=== PATIENT | female | born 1985 | race African-American/Black ===

== ENCOUNTER 2024-06-10 10:18 | Emergency (ER) | payer OTHER, SELFPAY ==
[2024-06-10 10:33] VITALS: BP 149/110; PULSE 95; RESP 101; TEMP 36.5; O2SAT 100
--- NOTE | 2024-06-10 11:06 | ED_ITS ---
HPI - General Adult General Chief complaint: Dental/Oral Stated complaint: dental pain Time Seen by Provider: 06/10/24 10:53 History of Present Illness HPI narrative: 38-year-old female history of poor dentition present to the emergency department for evaluation for uncontrolled dental pain. Patient has been attempting to get follow-up with a dentist for her chronic dental issues and dental fractures but states she is still unable to get follow-up. Patient did follow-up with urgent care and was started on Augmentin but patient states her pain is poorly controlled. Patient has been taking Tylenol and naproxen for pain control but still reports her pain is poorly controlled. Related Data Allergies Allergy/AdvReac Type Severity Reaction Status Date / Time No Known Drug Allergies Allergy NA Verified 06/10/24 11:13 Review of Systems Review of Systems: All systems reviewed & are unremarkable except as noted in HPI and below Exam Narrative: APPEARANCE: Well appearing, no pain, no distress, well-nourished. HEAD: normocephalic, atraumatic. EYES: PERRLA/EOMI, conjunctivae clear. Mouth: Extensive dental caries, no abscess NOSE: Normal no drainage EARS:TMS clear with good light reflex. THROAT: Pharynx clear, no exudate. NECK: Supple. No adenopathy, no masses. RESPIRATORY: Airway patent, respirations nonlabored. Clear to auscultation bilaterally, no rales, rhonchi, wheezing. CARDIOVASCULAR: Regular rate and rhythm without murmurs rubs or gallops. ABDOMINAL: Soft, nontender, nondistended, normal bowel sounds MUSCULOSKELETAL: Moves all extremities. Strength/ROM intact, No edema, No calf tenderness. NEURO: Alert. Cranial nerves II through XII intact. Good gait. Good coordination SKIN: Warm, dry. Normal Color Course Vital Signs Vital signs: Vital Signs Temperature 97.7 F 06/10/24 10:33 Pulse Rate 95 06/10/24 10:33 Respiratory Rate 101 H 06/10/24 10:33 Blood Pressure 149/110 H 06/10/24 10:33 Pulse Oximetry 100 06/10/24 10:33 Oxygen Delivery Room Air 06/10/24 10:33 Temperature 97.6 F 06/10/24 11:22 Pulse Rate 98 06/10/24 11:22 Respiratory Rate 16 06/10/24 11:22 Blood Pressure 131/79 06/10/24 11:22 Pulse Oximetry 100 06/10/24 11:22 Oxygen Delivery Room Air 06/10/24 10:33 Medical Decision Making MDM Narrative Medical decision making narrative: 38-year-old female presents to the emergency department for evaluation for extensive dental issues. Patient is currently on Augmentin but reports she is having poorly controlled pain. Patient has been taking Tylenol and naproxen. Patient will be provided hydrocodone for additional pain control for home. Patient reports he will continue to seek outpatient follow-up with a dentist. Vital Signs Vital Signs: Vital Signs Temperature 97.7 F 06/10/24 10:33 Pulse Rate 95 06/10/24 10:33 Respiratory Rate 101 H 06/10/24 10:33 Blood Pressure 149/110 H 06/10/24 10:33 Pulse Oximetry 100 06/10/24 10:33 Oxygen Delivery Room Air 06/10/24 10:33 Temperature 97.6 F 06/10/24 11:22 Pulse Rate 98 06/10/24 11:22 Respiratory Rate 16 06/10/24 11:22 Blood Pressure 131/79 06/10/24 11:22 Pulse Oximetry 100 06/10/24 11:22 Oxygen Delivery Room Air 06/10/24 10:33 Discharge Plan Discharge Clinical Impression: Toothache, Dental caries, Fracture of tooth Patient Disposition: Home, Self-Care Condition: Stable Instructions: Antibiotic Form, Toothache (ED) Additional Instructions: Continue the antibiotics as directed. Tylenol and naproxen for pain control. If you need additional pain control replace the Tylenol with [place]. Do not take Tylenol and [place] at the same time as both contain acetaminophen. Continue seek follow-up with a dentist. If you have any worsening symptoms then please call or return to the emergency department. Patient Language: Namibian Prescriptions: New hydrocodone-acetaminophen 5-325 mg tablet 1 tablet PO Q12H PRN (Reason: pain) Qty: 14 0RF Follow-up/Referrals: PHYSICIAN NOT ON STAFF,NONSTAFF [Primary Care Provider] -
[2024-06-10] MEDS: HYDROcodone/acetaminophen (*CRX) 5-325 MG TABLET 1 TAB PO (11:16)
[2024-06-10 11:22] VITALS: BP 131/79; PULSE 98; RESP 16; TEMP 36.4; O2SAT 100
== END 2024-06-10 11:24 | disposition home or self-care (01) ==
PROVIDERS: Emergency Provider Emergency Medicine
DX: K02.9 Dental caries, unspecified (principal); K03.81 Cracked tooth
CPT/HCPCS: 99283; A9270

== ENCOUNTER 2024-06-21 12:40 | Emergency (ER) | payer OTHER, SELFPAY ==
[2024-06-21 12:47] VITALS: BP 149/99; PULSE 102; RESP 16; TEMP 36.4; O2SAT 96
--- OUTSIDE RECORDS SUMMARY | 2024-06-21 13:26 | XMS_ITS | Encounter Summary ---
Author Organization [facility] Address [address] [place] [address] Phone Care Team Providers Care Call Or Contact Centre Coach Name Role Phone Jose Alfredo Burgos MD Primary Care Provider [phone] Latoya Conroy APRN, DISPLAY TRIMMER Unavailable Michael Ibarra MD Unavailable [phone] Reason for Visit * Reason Comments Medication Refill Encounter Details Date Type Department Care Team (Late st Contact Info) Description 04/13/2024 Refill [facility] - Gastroenterology - [place] [address] [place] [address] Latoya Conroy APRN, DISPLAY TRIMMER [address] [place] [address] Medication Refill Social History Tobacco Use Types Packs/Day Years Used Date Smoking Tobacco: Some Days Cigarettes Smokeless Tobacco: Never Alcohol Use Standard Drinks/Week Comments Not Currently 0 (1 standard drink = 0.6 oz pur e alcohol) Sexually Active Control Partners Comments Not Currently Comments Unknown Sex and Gender Information Value Date Recorded Sex Assigned at Female 09/07/2023 2:29 PM CDT Legal Sex Female 12:54 PM CDT Gender Identity Not on file Sexual Orientation Not on file documented as of this encounter Miscellaneous Notes * Telephone Encounter - Tete Jean RN - 04/13/2024 8:08 AM PLANT ANATOMY TEACHER Medication refilled and signed per [facility] chronic medication standing order for pediatric and adult patients. T ANATOMY TEACHER documented in this encounter Plan of Treatment Not on file documented as of this encounter Visit Diagnoses Diagnosis Pain of upper abdomen Abdominal pain, other specified site documented in this encounter Care Teams Call Or Contact Centre Coach Relationship Specialty Start Date End Date Jose Alfredo Burgos MD [address] [place] [address] PCP - General Family Medicine 09/16/23 Latoya Conroy APRN, DISPLAY TRIMMER [address] [place] [address] Nurse Practitioner Advanced Practice Nurse 12/22/23 iMchael Ibarra MD [address] [address] Consulting Physician General Surgery 06/07/24 documented as of this encounter
--- OUTSIDE RECORDS SUMMARY | 2024-06-21 13:26 | XMS_ITS | Encounter Summary ---
Author Organization [facility] Address [address] [place] [address] Phone Care Team Providers Care Driver'S Education Instructor Name Role Phone Jose Alfredo Burgos MD Primary Care Provider Latoya Conroy APRN, FLOORING MACHINE OPERATOR Unavailable Michael Ibarra MD Unavailable [phone] Encounter Details Date Type Department Care Team (Late st Contact Info) Description 09/07/2023 Lab Requisition [facility] [address] [place] [address] Madi Tabor, PAC [address] [place] [address] Encounter for pre-employment examination Social History Tobacco Use Types Packs/Day Years Used Date Smoking Tobacco: Never Assessed Comments Unknown Sex and Gender Information Value Date Recorded Sex Assigned at Female 09/07/2023 2:29 PM CDT Legal Sex Female 12:54 PM CDT Gender Identity Not on file Sexual Orientation Not on file documented as of this encounter Plan of Treatment Not on file documented as of this encounter Procedures Procedure Name Priority Date/Time Associated Diagnosis Comments QUANTIFERON-TB GOLD PLUS Routine 09/07/2023 10:05 AM CDT Encounter for pre-employment examination documented in this encounter Results * QUANTIFERON-TB GOLD PLUS (09/07/2023 10:05 AM CDT) NIL CONTROL 0.12 <8.01 IU/mL 09/09/2023 10:31 AM CDT [facility] TB ANTIGEN 1 0.01 <0.35 IU/mL 09/09/2023 10:31 AM CDT [facility] TB ANTIGEN 2 0.01 <0.35 IU/mL 09/09/2023 10:31 AM CDT [facility] MITOGEN CONTROL 9.88 >0.49 IU/mL 09/09/19 10:31 AM CDT [facility] INTEPRETATION TB NEGATIVE NEGATIVE, NEGATIVE (TB antigen response less than 25% of internal negative control value) 09/09/2023 10:31 AM CDT [facility] Comment:No immune response t o Mycobacterium tuberculosis antigens was noted. M. tuberculosis infection unlikely. Blood No Phlebotomy Charged / Unknown 09/07/2023 10:05 AM CDT 09/07/2023 3:10 PM CDT Narrative [facility] - 09/09/2023 10:31 AM CDT A POSITIVE QUANTIFERON-TB GOLD PLUS RESULT SHOULD NOT BE THE SOLE OR DEFINITIVE BASIS FOR DETERMINING INFECTION WITH M.TUBERCULOSIS. Diagnosing or excluding tuberculosis disease, and assessing the probability of LTBI, requires a combination of epidemiological, historical, medical and diagnostic findings (e.g., acid fast bacilli (AFB) smear and culture, chest xray) that should be taken into account when interpreting QFT-Plus results. Furthermore, the magnitude of the measured gamma interferon level cannot be correlated to stage or degree of infection, level of immune responsiveness, or likelihood for progression to active disease. The Nil control adjusts for background (e.g., elevated levels of circulating gamma interferon or presence of heterophile antibodies). The Mitogen control serves as an internal positive control and verifies each specimen tested can produce a gamma interferon response. Low mitogen may occur with insufficient lymphocytes, reduced lymphocyte activity due to improper specimen handling, filling/mixing of the mitogen tube, or inability of the patient's lymphocytes to generate gamma interferon. Infection with other Mycobacteria, including M. kansasii, M. szulgai, and M. marinum, may cause false positive results. A negative QuantiFERON-TB Gold Plus result does not preclude the possibility of M. tuberculosis infection or tuberculosis disease: false negative results can be due to incorrect blood sample collection/ improper handling of the specimen, stage of infection (e.g., specimen obtained prior to the development of cellular immune response), co-morbid conditions which affect immune function, or other individual immunological factors. The minimum number of lymphocytes required for a reliable test has not been established and may also be variable. Diagnostic testing for Mycobacterium tuberculosis using Interferon Gamma Release Assays should follow applicable published guidelines, including when testing in populations such as children, women, and HIV-infected or otherwise immunocompromised individuals. https://www.cdc.gov/tb/publications/guidelines/testing.htm us Madi Tabor [facility]UN[facility] ORDERABLES Final Result [facility] [address] [place] [address], documented in this encounter Visit Diagnoses Diagnosis Encounter for pre-employment examination Health examination of defined subpopulation documented in this encounter Care Teams Driver'S Education Instructor Relationship Specialty Start Date End Date Jose Alfredo Burgos MD [address] [place] [address] PCP - General Family Medicine 09/16/23 Latoya Conroy APRN, RIC [address] [place] [address] Nurse Practitioner Advanced Practice Nurse 12/22/23 Michael Ibarra MD 2 [facility] [address] [place] [address] Consulting Physician General Surgery 06/07/24 documented as of this encounter
--- OUTSIDE RECORDS SUMMARY | 2024-06-21 13:26 | XMS_ITS ---
Author Organization [facility] Address [address] [place] [address] Phone Care Team Providers Care Optical Goods Worker Name Role Phone Jose Alfredo Burgos MD Primary Care Provider [phone] Latoya Conroy APRN, ZOOLOGY TEACHER Unavailable Michael Ibarra MD Unavailable [phone] [facility] Status:Enrolled (Active) Start date:06/20/2024 Enrollment date:06/20/2024 Related social drivers of health:Intimate Partner Violence, Social Connections, Alcohol Use, Tobacco Use, Financial Resource Strain,Depression, Stress, Physical Activity, Food Insecurity, Transportation Needs, Housing Stability, Utilities Continued Care and Services Coordination
--- OUTSIDE RECORDS SUMMARY | 2024-06-21 13:26 | XMS_ITS | Clinical Summary ---
Author Organization [facility] Address [address] [place] [address] Phone Care Team Providers Care Route Jumper Name Role Phone Jose Alfredo Burgos MD Primary Care Provider [phone] Latoya Conroy APRN, BOX OFFICE CLERK Unavailable Michael Ibarra MD Unavailable [phone] Medications HYDROcodone-acet aminophen (NORCO) 5-325 MG Tablet Take 1 Tablet by mouth. 6 Active ondansetron (ZOFRAN-ODT) 4 MG TABLET DISPERSIBLE DISSOLVE 1 TABLET ON THE TONGUE FOUR TIMES DAILY FOR 7 DAYS NEEDED FOR NAUSEA OR VOMITING Active chlorhexidine (PERIDEX) 0.12 % Solution 10 mL. 4 Active cyclobenzaprine (FLEXERIL) 5 MG Tablet TAKE 1 TABLET BY MOUTH THREE TIMES DAILY FOR 21 DAYS NEEDED 4 Active DULoxetine (CYMBALTA) [address] Particles Take 30 mg by mouth daily. 4 Active gabapentin (NEURONTIN) 600 MG Tablet Take 600 mg by mouth 3 times daily. Active losartan (COZAAR) 25 MG Tablet every morning. 4 Active QUEtiapine Fumarate (SEROquel) 50 MG Tablet TAKE 4 TABLETS BY MOUTH EVERY DAY DIRECTED Active sucralfate (CARAFATE) 1 GM Tablet TAKE 1 TABLET BY MOUTH FOUR TIMES DAILY 4 Active promethazine (PHENERGAN) 25 MG TabletIndication s:Nausea and vomiting, unspecified vomiting type Take 1 Tablet by mouth every 6 hours as needed for Nausea - 1st line. 30 Tablet Active Additional Information Patient not taking.Reported on 06/07/2024 Acetaminophen (TYLENOL PO) Take 500 mg by mouth as needed. Active dicyclomine (BENTYL) 10 MG CapsuleIndicatio ns:Pain of upper abdomen TAKE ONE CAPSULE BY MOUTH THREE TIMES DAILY BEFORE A MEAL 90 Capsule 3 Active Active Problems Problem Noted Date Diagnosed Date Chronic diarrhea 12/16/2022 Cannabis abuse 12/16/2022 Encounters Date Type Department Care Team Description 06/07/2024 9:00 AM MASS SPEC Office Visit [facility] Gastroenterology [facility] [address] [place] [address] Michael Ibarra MD Nausea vomiting and diarrhea (Primary Dx) Discharge Disposition: Discharged to home or Selfcare 06/05/2024 Travel [facility]/13[facility] [place] [address] Latoya Conroy APRN, BOX OFFICE CLERK Medication Refill from Last 3 Months Family History Medical History Relation Name Comments Heart Attack Father Relation Name Status Comments Father Social History Tobacco Use Types Packs/Day Years [...] on file Sexual Orientation Not on file Last Filed Vital Signs Vital Sign Reading Time Taken Comments Blood Pressure 124/86 06/07/2024 9:19 AM MASS SPEC Pulse 69 12/23/2023 2:25 PM CDT Temperature 37 ??C (98.6 ??F) 06/07/2024 9:19 AM MASS SPEC Respiratory Rate 16 06/07/2024 9:19 AM MASS SPEC Oxygen Saturation 100% 12/23/2023 2:25 PM CDT Inhaled Oxygen Concentration - - Weight 96.8 kg (213 lb 6.4 oz) 06/07/2024 9:19 A M MASS SPEC Height 177.8 cm (5' 10 ) 06/07/2024 9:19 AM MASS SPEC Body Mass Index 30.62 06/07/2024 9:19 AM MASS SPEC Plan of Treatment Health Maintenance Due Date Last Done Comments Hepatitis C Virus (HCV) Screening 1986 Hepatitis B Immunization (2 of 3 - 3-dose series) 01/15/1998 12/18/1997 Pneumococcal Immunization Combined (1 of 2 - PCV) 2005 Pap Smear 2007 Cervical Cancer Screening (CCS) 2016 HPV/Cotest 2016 Influenza Immunization (#1) 2024 SARS-COV-2 Immunization ( season) 2024 Respiratory Syncytial Virus (RSV) Immunization (Adult) (1 - 1-dose 75+ series) 2061 TdaP Immunization Completed 07/02/2015, 04/30/2013, 09/21/2010 Meningococcal Immunization (ACWY) Aged Out No longer eligible b ased on patient's age to complete this topic Rotavirus Immunization Aged Out No lo nger eligible based on patient's age to complete this topic Insurance MEDICAID [place] * Guarantor: [facility] Account Type Relation to Patient Date of Phone Billing Address Institutional Other [id number] [place] [address] Care Teams Route Jumper Relationship Specialty Start Date End Date Jose Alfredo Burgos MD [address] [place] [address] [place] [address] PCP - General Family Medicine 09/16/23 Latoya Conroy APRN, BOX OFFICE CLERK [address] [place] [address] Nurse Practitioner Advanced Practice Nurse 12/22/23 Michael Ibarra MD 2 [facility] [address] [address] Consulting Physician General Surgery 06/07/24
--- OUTSIDE RECORDS SUMMARY | 2024-06-21 13:26 | XMS_ITS | Clinical Summary ---
Author Organization [facility] Address [address] [place] [address] Care Team Providers Care Proof Coins Inspector Name Role Phone Jose Alfredo Burgos MD Primary Care Provider [phone] Allergies No known active allergies Medications dextroamphetamine -amphetamine (ADDERALL) 5 mg tablet Take 1 tablet (5 mg total) by mouth daily 023 Active buprenorphine-nal oxone (SUBOXONE) 2-0.5 mg per SL tablet Place 1 tablet under the tongue 023 Active hydrOXYzine (ATARAX) 25 mg tablet Take 1 tablet (25 mg total) by mouth every 4 (four) hours as needed 023 Active labetaloL (NORMODYNE,TRANDA TE) 200 mg tablet Take 1 tablet (200 mg total) by mouth every 8 (eight) hours 016 Active methocarbamoL (ROBAXIN) 750 mg tablet Take 1 tablet by mouth every 8 hours as needd for msucle pains 023 Active gabapentin (NEURONTIN) 300 mg capsule Take 2 capsules (600 mg total) by mouth 3 (three) times a day for 7 days 42 capsule 024 Active acetaminophen-cod eine (TYLENOL with CODEINE #3) 300-30 mg per tabletIndications :Dentalgia,Gallbl adder colic Take 1 tablet by mouth every 6 (six) hours as needed for pain P.r.n. pain not relieved by naproxen alone. Take with food. Collaborating physician Victor M Han MD 8 tablet 024 Active chlorhexidine (PERIDEX) 0.12 % solutionIndicatio ns:Dentalgia,[place] al caries into pulp Apply 10 mL to the mouth or throat 3 (three) times a day Swish around in mouth for 5 minutes then spit out. Collaborating physician Victor M Han MD 240 mL 1 Active ibuprofen (ADVIL,MOTRIN) 600 mg tabletIndications :Pain Take 1 tablet (600 mg total) by mouth 3 (three) times a day Take with food. 30 tablet Active metoclopramide (REGLAN) 10 mg tablet Take 1 tablet (10 mg total) by mouth every 6 (six) hours 30 tablet Active HYDROcodone-aceta minophen (NORCO) 5-325 mg per tabletIndications :Pain Take 1 tablet by mouth every 6 (six) hours as needed for pain for up to 8 doses 8 tablet Active HYDROcodone-aceta minophen (NORCO) 5-325 mg per tabletIndications :Pain Take 1 tablet by mouth every 6 (six) hours as needed for pain for up to 10 doses 10 tablet Active QUEtiapine (SEROquel) 100 mg tablet Take 1 tablet (100 mg total) by mouth nightly Take 1/2 tablet in AM and 1 tablet nightly 30 tablet 025 2024 Active ondansetron ODT (ZOFRAN-ODT) 8 mg disintegrating tablet Take 1 tablet (8 mg total) by mouth every 8 (eight) hours as needed for nausea or vomiting 30 tablet Active QUEtiapine (SEROquel) 50 mg tablet Take 1 tablet (50 mg total) by mouth daily 30 tablet 025 2024 Active QUEtiapine (SEROquel) 50 mg tablet Take 2 tablets (100 mg total) by mouth nightly 60 tablet 025 2024 Active ondansetron ODT (ZOFRAN-ODT) 4 mg disintegrating tablet Take 1 tablet (4 mg total) by mouth every 8 (eight) hours as needed for nausea or vomiting 20 tablet 024 2024 Discontinued QUEtiapine (SEROquel) 50 mg tablet Take 3 tablets (150 mg total) by mouth nightly 90 tablet 024 2024 Discontinued QUEtiapine (SEROquel) 50 mg tabletIndications :Generalized Anxiety Disorder Take 1 tablet (50 mg total) by mouth daily 30 tablet 024 2024 Discontinued QUEtiapine (SEROquel) 100 mg tablet Take 1 tablet (100 mg total) by mouth nightly Take 1/2 tablet in AM and 1 tablet nightly 30 tablet 024 2024 Discontinued(R gaurav) Active Problems Problem Noted Date Diagnosed Date Dentalgia 11/25/2023 Dental caries into pulp 11/25/2023 Gallbladder colic 11/25/2023 Nausea 11/25/2023 Encounters Date Type Department Care Team Description 05/31/2024 7:58 AM TOMB MAKER HELPER - 05/31/2024 12:04 PM [facility] Emergency [facility] Emergency Department [address] [place] [id number] Robert Woodward MD Abdominal pain (Primary Dx); Nausea, vomiting, and diarrhea; Biliary sludge Discharge Disposition: Discharge to home or self care 03/27/2024 7:22 AM TOMB MAKER HELPER - 03/27/2024 9:31 AM [facility] Emergency Department [address] [place] [id number] Robert Woodward MD Nausea and vomiting, unspecified vomiting type (Primary Dx) Discharge Disposition: Discharge to home or self care from Last 3 Months Medical History Medical History Date Comments PTSD (post-traumatic stress disorder) ADD (attention deficit disorder) OCD (obsessive compulsive disorder) Social History Tobacco Use Types Packs/Day Years Used Date Smoking Tobacco: Some Days Cigarettes Tobacco Cessation:Ready to Q uit: Not Asked; Counseling Given: Not Answered Alcohol Use Standard Drinks/Week Comments Not Currently 0 (1 standard drink = 0.6 oz pur e alcohol) Personal Safety Answer Date Recorded Have you ever been in or are you currently in a harmful physical or emotional relationship or is someone making you feel afraid or unsafe? Denies 05/31/2024 Comments No Sex and Gender Information Value Date Recorded Sex Assigned at Not on file Legal Sex Female 4:35 PM [facility] Gender Identity Not on file Sexual Orientation Not on file Obstetrics History Last Filed Vital Signs Vital Sign Reading Time Taken Comments Blood Pressure 149/86 05/31/2024 9:15 AM TOMB MAKER HELPER Pulse 61 05/31/2024 9:15 AM TOMB MAKER HELPER Temperature 36.1 ??C (97 ??F) 05/31/2024 7:40 AM TOMB MAKER HELPER Respiratory Rate 19 05/31/2024 9:15 AM TOMB MAKER HELPER Oxygen Saturation 95% 05/31/2024 9:15 AM TOMB MAKER HELPER Inhaled Oxygen Concentration - - Weight 90.7 kg (200 lb) 05/31/2024 7:40 AM TOMB MAKER HELPER Height 175.3 cm (5' 9 ) 05/31/2024 7:40 AM TOMB MAKER HELPER Body Mass Index 29.53 05/31/2024 7:40 AM TOMB MAKER HELPER Plan of Treatment Health Maintenance Due Date Last Done Comments Cervical Cancer Screening 1986 Depression Screening 1986 Hepatitis C Screening 1986 Pneumococcal vaccine <65 (1 of 2 - PCV) 1992 Varicella Vaccines (1 of 2 - 13+ 2-dose series) 1999 Regular Well Visit/Exam 18-64 2004 Influenza Vaccine (#1) 2024 DTaP/Tdap/Td Vaccine (4 - Td or Tdap) 07/02/2025 07/02/2015, 04/30/2013, 09/21/2010 HPV Vaccines Aged Out No longer eligi ble based on patient's age to complete this topic Procedures Procedure Name Priority Date/Time Associated Diagnosis Comments US RUQ ED 05/31/2024 11:20 AM TOMB MAKER HELPER EGFR STAT 05/31/2024 9:22 AM TOMB MAKER HELPER DIFFERENTIAL AUTO STAT 05/31/2024 9:2 2 AM TOMB MAKER HELPER LIPASE STAT 05/31/2024 9:22 AM TOMB MAKER HELPER COMPREHENSIVE METABOLIC PANEL STAT 05/31/2024 9:22 AM TOMB MAKER HELPER CBC WITH AUTO DIFFERENTIAL STAT 05/31/2024 9:22 AM TOMB MAKER HELPER EGFR STAT 03/27/2024 7:55 AM TOMB MAKER HELPER DIFFERENTIAL AUTO STAT 03/27/2024 7:5 5 AM TOMB MAKER HELPER HCG, BLOOD, QUANTITATIVE STAT 03/27/2024 7:55 AM TOMB MAKER HELPER LIPASE STAT 03/27/2024 7:55 AM TOMB MAKER HELPER COMPREHENSIVE METABOLIC PANEL STAT 03/27/2024 7:55 AM TOMB MAKER HELPER CBC WITH AUTO DIFFERENTIAL STAT 03/27/2024 7:55 AM TOMB MAKER HELPER from Last 3 Months Results * US RUQ (05/31/2024 11:20 AM TOMB MAKER HELPER) Anatomical Region Laterality Modality Abdomen N/A Ultrasound 05/31/2024 11:3 2 AM TOMB MAKER HELPER Narrative 05/31/2024 11:34 AM TOMB MAKER HELPER EXAM DESCRIPTION: ?? US RUQ REASON FOR STUDY: ?? pain ?? TECHNIQUE: Ultrasound of the right upper quadrant of the abdomen was performed with grayscale and color doppler. COMPARISON: CT of the abdomen and pelvis 02/20/2024. FINDINGS: PANCREAS: ?? Visualized portions of the pancreas are within normal limits. Portions of the pancreatic body and tail are obscured due to bowel gas. LIVER: ?? The liver appears normal in echotexture and echogenicity. No focal lesion identified. The main portal vein is patent with antegrade flow. GALLBLADDER: ?? Mild gallbladder sludge. ??No cholelithiasis is identified. ??No gallbladder wall thickening or sonographic Garcia's sign. ??No pericholecystic fluid. ??The gallbladder is nondistended. ?? BILIARY: ?? There is no intrahepatic or extrahepatic biliary ductal dilatation. Common bile duct measures ??3 mm ??in diameter. RIGHT KIDNEY: ?? Normal size. Normal echogenicity. No solid mass or cyst. ??No hydronephrosis. ??Measures ??11.2 ??cm in length. OTHER: ?? No other significant findings. IMPRESSION: Mild gallbladder sludge. No sonographic evidence of acute cholecystitis or cholelithiasis. THIS IS AN ELECTRONICALLY VERIFIED FINAL REPORT 05/31/2024 11:34 AM - Electronically signed by ??Nahun Desai M.D. MM: MM D: ??05/31/2024 11:34 AM T: ??05/31/2024 11:34 AM Report ID: [id number] Reading Location: [id number] Procedure Note Nahun Desai MD - 05/31/2024 EXAM DESCRIPTION: US RUQ REASON FOR STUDY: pain TECHNIQUE: Ultrasound of the right upper quadrant of the abdomen wasperformed with grayscale and color doppler. COMPARISON: CT of the abdomen and pelvis 02/20/2024. FINDINGS: PANCREAS: Visualized portions of the pancreas are within normal limits. Portions of the pancreatic body and tail are obscured due to bowel gas. LIVER: The liver appears normal in echotexture and echogenicity. Nofocal lesion identified. The main portal vein is patent with antegrade flow. GALLBLADDER: Mild gallbladder sludge. No cholelithiasis is identified.No gallbladder wall thickening or sonographic Garcia's sign. Nopericholecystic fluid. The gallbladder is nondistended. BILIARY: There is no intrahepatic or extrahepatic biliary ductaldilatation. Common bile duct measures 3 mm in diameter. RIGHT KIDNEY: Normal size. Normal echogenicity. No solid mass or cyst.No hydronephrosis. Measures 11.2 cm in length. OTHER: No other significant findings. IMPRESSION: Mild gallbladder sludge. No sonographic evidence of acute cholecystitis or cholelithiasis. THIS IS AN ELECTRONICALLY VERIFIED FINAL REPORT 05/31/2024 11:34 AM - Electronically signed by Nahun Desai M.D. MM: MM Report ID: [id number] Reading Location: [id number] Robert Woodward MD [facility] US PROCEDURES F inal Result * eGFR (05/31/2024 9:22 AM TOMB MAKER HELPER) eGFR >90 >=60 mL/min/1. 73 m2 Comment: Interpretive Data Reference Interval Normal ?>/= 90 mL/min/1.73m2 Mildly decreased* ? 60 - 89 mL/min/1.73m2 Mildly to moderately decreased ?45 - 59 mL/min/1.73m2 Moderately to severely decreased ??30 - 44 mL/min/1.73m2 Severely decreased ?15 - 29 mL/min/1.73m2 Kidney Failure ?< 15 ??mL/min/1.73m2 *Relative to young adult level Estimated glomerular filtration rate is determined by the 2020 CKD-EPI equation recommended by the National Kidney Foundation (A Unifying Approach to GFR Estimation: Recommendations of the NKF-ASK Task Force on Reassessing the Inclusion of Race in Diagnosing Kidney Disease, JASN 2020). The CKD-EPI equation should not be used for patients with unstable renal function and has not been validated in children and those over 70. Current interpretive data was last reviewed 2021. Blood 05/31/2024 9:22 AM TOMB MAKER HELPER 05/31/2024 9:24 AM TOMB MAKER HELPER us Robert Woodward MD LAB BLOOD ORDERABLE S Final Result [facility] 1 [facility] Department [place] [address] * (ABNORMAL) Differential, auto (05/31/2024 9:22 AM TOMB MAKER HELPER) Neutrophil abs 9.5(H) 1.5 - 6.5 K/cumm Imm gran abs 0.1 0.0 - 0.1 K/cumm [facility] ([facility]) Lymphocyte abs 1.9 0.8 - 3.3 K/cumm [facility] ([facility]) Monocyte abs 0.6 0.2 - 0.8 K/cumm [facility] ([place]) Eosinophil abs 0.0 0.0 - 0.5 K/cumm [facility] ([place]) Basophil abs 0.0 0.0 - 0.1 K/cumm [facility] ([facility]) Neutrophil pct 78.3 % [facility] ([facility]) Comment: Interpretive Data Percent cell count reference ranges are not reported, since discordance with absolute values may lead to misinterpretation of CBC data. Current Interpretive Data was last revised on 2017. Imm gran pct 0.6 % [facility] ([place]) Comment: Interpretive Data Percent cell count reference ranges are not reported, since discordance with absolute values may lead to misinterpretation of CBC data. Current Interpretive Data was last revised on 2017. Lymphocyte pct 15.7 % [facility] ([facility]) Comment: Interpretive Data Percent cell count reference ranges are not reported, since discordance with absolute values may lead to misinterpretation of CBC data. Current Interpretive Data was last revised on 2017. Monocyte pct 5.1 % [facility] ([facility]) Comment: Interpretive Data Percent cell count reference ranges are not reported, since discordance with absolute values may lead to misinterpretation of CBC data. Current Interpretive Data was last revised on 2017. Eosinophil pct 0.1 % [facility] ([facility]) Comment: Interpretive Data Percent cell count reference ranges are not reported, since discordance with absolute values may lead to misinterpretation of CBC data. Current Interpretive Data was last revised on 2017. Basophil pct 0.2 % [facility] ([facility]) Comment: Interpretive Data Percent cell count reference ranges are not reported, since discordance with absolute values may lead to misinterpretation of CBC data. Current Interpretive Data was last revised on 2017. Blood 05/31/2024 9:22 AM TOMB MAKER HELPER 05/31/2024 9:24 AM TOMB MAKER HELPER us Robert Woodward MD LAB BLOOD ORDERABLE S Final Result [facility] ([place]) 1 [facility] Department [place] [address] * (ABNORMAL) CBC with auto differential (05/31/2024 9:22 AM TOMB MAKER HELPER) WBC 12.1(H) 3.8 - 9.9 K/cumm Hgb 11.1(L) 11.9 - 15.5 g/dL [facility] ([place]) Hct 33.4(L) 35.6 - 45.5 % [facility] ([place]) Plt 350 150 - 400 K/cumm [facility] ([place]) MPV 8.9(L) 9.1 - 12.3 fL [facility] ([place]) RBC 3.24(L) 3.90 - 5.20 M/cumm [facility] ([place]) MCV 103.1(H) 81.3 - 96.4 fL [facility] ([place]) MCH 34.3(H) 27.1 - 33.3 pg [facility] ([place]) MCHC 33.2 32.3 - 35.7 g/dL [facility] ([place]) RDW CV 12.6 11.1 - 14.9 % [facility] ([place]) RDW SD 47.8 35.7 - 48.1 fL [facility] ([facility]) NRBC abs 0.00 0.00 - 0.01 K/cumm [facility] ([facility]) Blood 05/31/2024 9:22 AM TOMB MAKER HELPER 05/31/2024 9:24 AM TOMB MAKER HELPER us Robert Woodward MD LAB BLOOD ORDERABLE S Final Result [facility] ([place] 1 [facility] Department [place] [address] * Lipase (05/31/2024 9:22 AM TOMB MAKER HELPER) Lipase 14 10 - 99 Units/L Blood 05/31/2024 9:22 AM TOMB MAKER HELPER 05/31/2024 9:24 AM TOMB MAKER HELPER us Robert Woodward MD LAB BLOOD ORDERABLE S Final Result [facility] ([place]) 1 [facility] Department [place] [address] * (ABNORMAL) Comprehensive metabolic panel (05/31/2024 9:22 AM TOMB MAKER HELPER) Sodium 140 135 - 145 mmol/L Potassium, pl 3.5 3.3 - 4.9 mmol/L [facility] ([facility]) Chloride 100 97 - 110 mmol/L [facility]) CO2 27 22 - 32 mmol/L [facility] ([place]) Anion gap 13 2 - 15 mmol/L [facility] ([place]) BUN 9 6 - 25 mg/dL [facility] ([facility]) Creatinine 0.59(L) 0.60 - 1.10 mg/dL [facility] ([facility]) Glucose 109 70 - 199 mg/dL [facility] ([facility]) Comment: Interpretive Data Fasting glucose >/= 126 mg/dl is diagnostic for diabetes. ?? Fasting is defined as no caloric intake for at least 8 hours. Fasting glucose between 100 mg/dl to 125 mg/dl is diagnostic of prediabetes. In a patient with classic symptoms of hyperglycemia or hyperglycemic crisis, a random glucose >/= 200 mg/dl is diagnostic for diabetes. In the absence of unequivocal hyperglycemia, results should be confirmed by repeat testing. The classification and Diagnosis of Diabetes Diabetes Care 2021; 46: S19-S40. Current interpretive data was last revised 2022. Calcium 8.9 8.5 - 10.3 mg/dL [facility] ([facility]) Bilirubin, total 0.4 0.1 - 1.2 mg/dL [facility] ([place]) Protein, pl 7.4 6.5 - 8.5 g/dL [facility] ([facility]) Albumin 4.1 3.5 - 5.0 g/dL [facility] ([facility]) Alk phos 94 40 - 130 Units/L [facility] ([facility]) ALT 64(H) 7 - 45 Units/L [facility] ([facility]) AST 22 10 - 45 Units/L [facility] ([facility]) Blood 05/31/2024 9:22 AM TOMB MAKER HELPER 05/31/2024 9:24 AM TOMB MAKER HELPER us Robert Woodward MD LAB BLOOD ORDERABLE S Final Result [facility] ([place]) 1 [facility] Department [place] [address] * eGFR (03/27/2024 7:55 AM TOMB MAKER HELPER) Pathologist [facility] eGFR >90 >=60 mL/min/1. 73 m2 Comment: Interpretive Data Reference Interval Normal ?>/= 90 mL/min/1.73m2 Mildly decreased* ? 60 - 89 mL/min/1.73m2 Mildly to moderately decreased ?45 - 59 mL/min/1.73m2 Moderately to severely decreased ??30 - 44 mL/min/1.73m2 Severely decreased ?15 - 29 mL/min/1.73m2 Kidney Failure ?< 15 ??mL/min/1.73m2 *Relative to young adult level Estimated glomerular filtration rate is determined by the 2020 CKD-EPI equation recommended by the National Kidney Foundation (A Unifying Approach to GFR Estimation: Recommendations of the NKF-ASK Task Force on Reassessing the Inclusion of Race in Diagnosing Kidney Disease, JASN 2020). The CKD-EPI equation should not be used for patients with unstable renal function and has not been validated in children and those over 70. Current interpretive data was last reviewed 2021. Blood 03/27/2024 7:55 AM TOMB MAKER HELPER 03/27/2024 7:58 AM TOMB MAKER HELPER us Antonia Triana MD LAB BLOOD ORDERABLES F inal Result [facility]) 1 [facility] Department [place] [address] * (ABNORMAL) Differential, auto (03/27/2024 7:55 AM TOMB MAKER HELPER) Pathologist [facility] Neutrophil abs 6.7(H) 1.5 - 6.5 K/cumm Imm gran abs 0.0 0.0 - 0.1 K/cumm [facility] ([facility]) Lymphocyte abs 1.4 0.8 - 3.3 K/cumm [facility] ([facility]) Monocyte abs 0.4 0.2 - 0.8 K/cumm [facility] ([facility]) Eosinophil abs 0.2 0.0 - 0.5 K/cumm [facility] ([facility]) Basophil abs 0.0 0.0 - 0.1 K/cumm [facility] ([facility]) Neutrophil pct 76.1 % [facility] ([facility]) Comment: Interpretive Data Percent cell count reference ranges are not reported, since discordance with absolute values may lead to misinterpretation of CBC data. Current Interpretive Data was last revised on 2017. Imm gran pct 0.3 % [facility] ([facility]) Comment: Interpretive Data Percent cell count reference ranges are not reported, since discordance with absolute values may lead to misinterpretation of CBC data. Current Interpretive Data was last revised on 2017. Lymphocyte pct 16.2 % [facility] ([facility]) Comment: Interpretive Data Percent cell count reference ranges are not reported, since discordance with absolute values may lead to misinterpretation of CBC data. Current Interpretive Data was last revised on 2017. Monocyte pct 4.4 % [facility] ([facility]) Comment: Interpretive Data Percent cell count reference ranges are not reported, since discordance with absolute values may lead to misinterpretation of CBC data. Current Interpretive Data was last revised on 2017. Eosinophil pct 2.7 % [facility] ([facility]) Comment: Interpretive Data Percent cell count reference ranges are not reported, since discordance with absolute values may lead to misinterpretation of CBC data. Current Interpretive Data was last revised on 2017. Basophil pct 0.3 % [facility] ([facility]) Comment: Interpretive Data Percent cell count reference ranges are not reported, since discordance with absolute values may lead to misinterpretation of CBC data. Current Interpretive Data was last revised on 2017. Blood 03/27/2024 7:55 AM TOMB MAKER HELPER 03/27/2024 7:58 AM TOMB MAKER HELPER us Antonia Triana MD LAB BLOOD ORDERABLES F inal Result [facility] ([place]) 1 [facility] [place] [address] * (ABNORMAL) CBC with auto differential (03/27/2024 7:55 AM TOMB MAKER HELPER) WBC 8.9 3.8 - 9.9 K/cumm Hgb 12.6 11.9 - 15.5 g/dL [facility] ([facility]) Hct 38.1 35.6 - 45.5 % [facility] ([facility]) Plt 350 150 - 400 K/cumm [facility] ([facility]) MPV 9.1 9.1 - 12.3 fL [facility] ([facility]) RBC 3.75(L) 3.90 - 5.20 M/cumm [facility] ([facility]) MCV 101.6(H) 81.3 - 96.4 fL [facility] ([facility]) MCH 33.6(H) 27.1 - 33.3 pg [facility] ([facility]) MCHC 33.1 32.3 - 35.7 g/dL [facility] ([facility]) RDW CV 12.9 11.1 - 14.9 % [facility] ([facility]) RDW SD 48.6(H) 35.7 - 48.1 fL [facility] ([facility]) NRBC abs 0.00 0.00 - 0.01 K/cumm [facility] ([facility]) Blood 03/27/2024 7:55 AM TOMB MAKER HELPER 03/27/2024 7:58 AM TOMB MAKER HELPER us Antonia Triana MD LAB BLOOD ORDERABLES F inal Result [facility] ([place]) 1 [facility] [employer] [place] [place] [address] * hCG, blood, quantitative (03/27/2024 7:55 AM TOMB MAKER HELPER) Pathologist [facility] hCG, quant <5.0 0.0 - 5.0 IUnits/L Comment: Interpretive Data Male: < 5 IU/L Non- premenopausal Female: <5 IU/L The [employer] hCG Beta Quant assay procedure was used. Results from different manufacturers or methods may not be comparable. ??Serial testing should be performed using the same method. Interpretive Data was last revised on 2023 Blood 03/27/2024 7:55 AM TOMB MAKER HELPER 03/27/2024 7:58 AM TOMB MAKER HELPER Antonia Triana MD LAB BLOOD ORDERABLES F inal Result Performing Organization Address City/[facility]/ZIP Co de Phone Number [facility] 1 [facility] [place] [address] * Lipase (03/27/2024 7:55 AM TOMB MAKER HELPER) Lipase 13 10 - 99 Units/L Blood 03/27/2024 7:55 AM TOMB MAKER HELPER 03/27/2024 7:58 AM TOMB MAKER HELPER Antonia Triana MD LAB BLOOD ORDERABLES F inal Result Performing Organization Address [facility] de Phone Number [facility] [address] [place] [address] * Comprehensive metabolic panel (03/27/2024 7:55 AM TOMB MAKER HELPER) Sodium 136 135 - 145 mmol/L Potassium, pl 3.7 3.3 - 4.9 mmol/L [facility] ([facility]) Chloride 103 97 - 110 mmol/L [facility] ([facility]) CO2 22 22 - 32 mmol/L [facility] ([facility]) Anion gap 11 2 - 15 mmol/L [facility] ([facility]) BUN 9 6 - 25 mg/dL [facility] ([place]) Creatinine 0.60 0.60 - 1.10 mg/dL [facility] ([place]) Glucose 118 70 - 199 mg/dL [facility] ([facility]) Comment: Interpretive Data Fasting glucose >/= 126 mg/dl is diagnostic for diabetes. ?? Fasting is defined as no caloric intake for at least 8 hours. Fasting glucose between 100 mg/dl to 125 mg/dl is diagnostic of prediabetes. In a patient with classic symptoms of hyperglycemia or hyperglycemic crisis, a random glucose >/= 200 mg/dl is diagnostic for diabetes. In the absence of unequivocal hyperglycemia, results should be confirmed by repeat testing. The classification and Diagnosis of Diabetes Diabetes Care 202; 46: S19-S40. Current interpretive data was last revised 2022. Calcium 9.0 8.5 - 10.3 mg/dL [facility] ([facility]) Bilirubin, total 0.4 0.1 - 1.2 mg/dL [facility] ([place]) Protein, pl 8.0 6.5 - 8.5 g/dL [facility] ([facility]) Albumin 4.4 3.5 - 5.0 g/dL [facility] ([facility]) Alk phos 70 40 - 130 Units/L [facility] ([facility]) ALT 9 7 - 45 Units/L [facility] ([facility]) AST 15 10 - 45 Units/L [facility] ([facility]) Comment:Slightly Hemolyzed S pecimen Blood 03/27/2024 7:55 AM TOMB MAKER HELPER 03/27/2024 7:58 AM TOMB MAKER HELPER us Antonia Triana MD LAB BLOOD ORDERABLES F inal Result [facility] ([place]) 1 [facility] Department [place] [address] from Last 3 Months Insurance [facility] Care Teams Proof Coins Inspector Relationship Specialty Start Date End Date Jose Alfredo Burgos MD [address] [place] [address] DR HELMS [address] [place] [phone] PCP - General Family Medicine 10/14/23
--- OUTSIDE RECORDS SUMMARY | 2024-06-21 13:26 | XMS_ITS | Referral Summary ---
Author Organization [facility] Address [address] [place] [address] Care Team Providers Care Crucible Packer Name Role Phone Jose Alfredo Burgos MD Primary Care Provider [phone] Encounters Date Type Department Care Team Description 05/31/2024 7:58 AM MATERIAL LOADER - 05/31/2024 12:04 PM [facility] Emergency Department [address] [place] [address] Robert Woodward MD Abdominal pain (Primary Dx); Nausea, vomiting, and diarrhea; Biliary sludge Discharge Disposition: Discharge to home or self care 03/27/2024 7:22 AM MATERIAL LOADER - 03/27/2024 9:31 AM [facility] Emergency Department [address] [place] [id number] Robert Woodward MD Nausea and vomiting, unspecified vomiting type (Primary Dx) Discharge Disposition: Discharge to home or self care from Last 3 Months Allergies No known active allergies Medications dextroamphetamine [...] 024 Active chlorhexidine (PERIDEX) 0.12 % solutionIndicatio ns:Dentalgia,[place] al caries into pulp Apply 10 mL to the mouth or throat 3 (three) times a day Swish around in mouth for 5 minutes then spit out. Collaborating physician Victor M Han MD 240 mL 1 024 Active ibuprofen (ADVIL,MOTRIN) 600 mg tabletIndications :Pain Take 1 tablet (600 mg total) by mouth 3 (three) times a day Take with food. 30 tablet 024 Active metoclopramide (REGLAN) 10 mg tablet Take 1 tablet (10 mg total) by mouth every 6 (six) hours 30 tablet 024 Active HYDROcodone-aceta minophen (NORCO) 5-325 mg per tabletIndications :Pain Take 1 tablet by mouth every 6 (six) hours as needed for pain for up to 8 doses 8 tablet 024 Active HYDROcodone-aceta minophen (NORCO) 5-325 mg per tabletIndications :Pain Take 1 tablet by mouth every 6 (six) hours as needed for pain for up to 10 doses 10 tablet 024 Active QUEtiapine (SEROquel) 100 mg tablet Take 1 tablet (100 mg total) by mouth nightly Take 1/2 tablet in AM and 1 tablet nightly 30 tablet 025 2024 Active ondansetron ODT (ZOFRAN-ODT) 8 mg disintegrating tablet Take 1 tablet (8 mg total) by mouth every 8 (eight) hours as needed for nausea or vomiting 30 tablet 025 Active QUEtiapine (SEROquel) 50 mg tablet Take [...] 1 tablet nightly 30 tablet 024 2024 Discontinued(Mayra nolasco) Active Problems Problem Noted Date Diagnosed Date Dentalgia 11/25/2023 Dental caries into pulp 11/25/2023 Gallbladder colic 11/25/2023 Nausea 11/25/2023 Social History Tobacco Use Types Packs/Day Years [...] on file Legal Sex Female 4:35 PM 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 Gender Identity Not on file Sexual Orientation Not on file Last Filed Vital Signs Vital Sign Reading Time Taken Comments Blood Pressure 149/86 05/31/2024 9:15 AM MATERIAL LOADER Pulse 61 05/31/2024 9:15 AM MATERIAL LOADER Temperature 36.1 ??C (97 ??F) 05/31/2024 7:40 AM MATERIAL LOADER Respiratory Rate 19 05/31/2024 9:15 AM MATERIAL LOADER Oxygen Saturation 95% 05/31/2024 9:15 AM MATERIAL LOADER Inhaled Oxygen Concentration - - Weight 90.7 kg (200 lb) 05/31/2024 7:40 AM MATERIAL LOADER Height 175.3 cm (5' 9 ) 05/31/2024 7:40 AM MATERIAL LOADER Body Mass Index 29.53 05/31/2024 7:40 AM MATERIAL LOADER Plan of Treatment Not on file Procedures Procedure Name Priority Date/Time Associated Diagnosis Comments US RUQ ED 05/31/2024 11:20 AM MATERIAL LOADER EGFR STAT 05/31/2024 9:22 AM MATERIAL LOADER DIFFERENTIAL AUTO STAT 05/31/2024 9:2 2 AM MATERIAL LOADER LIPASE STAT 05/31/2024 9:22 AM MATERIAL LOADER COMPREHENSIVE METABOLIC PANEL STAT 05/31/2024 9:22 AM MATERIAL LOADER CBC WITH AUTO DIFFERENTIAL STAT 05/31/2024 9:22 AM MATERIAL LOADER EGFR STAT 03/27/2024 7:55 AM MATERIAL LOADER DIFFERENTIAL AUTO STAT 03/27/2024 7:5 5 AM MATERIAL LOADER HCG, BLOOD, QUANTITATIVE STAT 03/27/2024 7:55 AM MATERIAL LOADER LIPASE STAT 03/27/2024 7:55 AM MATERIAL LOADER COMPREHENSIVE METABOLIC PANEL STAT 03/27/2024 7:55 AM MATERIAL LOADER CBC WITH AUTO DIFFERENTIAL STAT 03/27/2024 7:55 AM MATERIAL LOADER from Last 3 Months Results * US RUQ (05/31/2024 11:20 AM MATERIAL LOADER) Anatomical Region Laterality Modality Abdomen N/A Ultrasound 05/31/2024 11:3 2 AM MATERIAL LOADER Narrative 05/31/2024 11:34 AM MATERIAL LOADER EXAM DESCRIPTION: ?? US RUQ REASON FOR [...] AM T: ??05/31/2024 11:34 AM Report ID: [id number] Reading Location: ??[id number] Procedure Note Nahun Desai MD - 05/31/2024 [...] Nahun Desai M.D. MM: MM Report ID: [id number] Reading Location: [place] [address] us Robert Woodward MD [facility] [place]EDURES F inal Result * eGFR (05/31/2024 9:22 AM MATERIAL LOADER) eGFR >90 >=60 mL/min/1. 73 m2 Comment: [...] last reviewed 2021. Blood 05/31/2024 9:22 AM MATERIAL LOADER 05/31/2024 9:24 AM MATERIAL LOADER us Robert Woodward MD LAB BLOOD ORDERABLE S Final Result [facility] ([place] [facility]) 1 [facility] Department [place] [address] * (ABNORMAL) Differential, auto (05/31/2024 9:22 AM MATERIAL LOADER) Neutrophil abs 9.5(H) 1.5 - 6.5 K/cumm [...] revised on 2017. Blood 05/31/2024 9:22 AM MATERIAL LOADER 05/31/2024 9:24 AM MATERIAL LOADER us Robert Woodward MD LAB BLOOD ORDERABLE S Final Result [facility] ([place]) 1 [facility] [place] [address] * (ABNORMAL) CBC with auto differential (05/31/2024 9:22 AM MATERIAL LOADER) WBC 12.1(H) 3.8 - 9.9 K/cumm Hgb [...] ([facility]) MCHC 33.2 32.3 - 35.7 g/dL [facility] ([facility] RDW CV 12.6 11.1 - 14.9 % [facility] ([facility]) RDW SD 47.8 35.7 - 48.1 fL [facility] ([facility]) NRBC abs 0.00 0.00 - 0.01 K/cumm [facility] ([facility] Blood 05/31/2024 9:22 AM MATERIAL LOADER 05/31/2024 9:24 AM MATERIAL LOADER us Robert Woodward MD LAB BLOOD ORDERABLE S Final Result [facility] ([place]) 1 [facility] [place] [address] * Lipase (05/31/2024 9:22 AM MATERIAL LOADER) Lipase 14 10 - 99 Units/L Blood 05/31/2024 9:22 AM MATERIAL LOADER 05/31/2024 9:24 AM MATERIAL LOADER Robert Woodward MD LAB BLOOD ORDERABLE S Final Result Performing Organization Address City/[facility] Co de Phone Number [facility] ([place]) [address] [facility] [place] [address] * (ABNORMAL) Comprehensive metabolic panel (05/31/2024 9:22 AM MATERIAL LOADER) Sodium 140 135 - 145 mmol/L Potassium, pl 3.5 3.3 - 4.9 mmol/L [facility] ([place]) Chloride 100 97 - 110 mmol/L [facility] ([place]) CO2 27 22 - 32 mmol/L [facility] ([facility] Anion gap 13 2 - 15 mmol/L [facility] ([facility]) BUN 9 6 - 25 mg/dL [facility] ([place]) Creatinine 0.59(L) 0.60 - 1.10 mg/dL [facility] ([place]) Glucose 109 70 - 199 mg/dL [facility] ([place]) Comment: Interpretive Data Fasting glucose [...] [facility] ([facility]) Blood 05/31/2024 9:22 AM MATERIAL LOADER 05/31/2024 9:24 AM MATERIAL LOADER us Robert Woodward MD LAB BLOOD ORDERABLE S Final Result [facility] ([place]) 1 [facility] Department of Laboratories [place], [place] [id number] * eGFR (03/27/2024 7:55 AM MATERIAL LOADER) eGFR >90 >=60 mL/min/1. 73 m2 Comment: [...] last reviewed 2021. Blood 03/27/2024 7:55 AM MATERIAL LOADER 03/27/2024 7:58 AM MATERIAL LOADER Antonia Triana MD LAB BLOOD ORDERABLES F inal Result [facility] ([place]) 1 [facility] Department [place] [address] * (ABNORMAL) Differential, auto (03/27/2024 7:55 AM MATERIAL LOADER) Neutrophil abs 6.7(H) 1.5 - 6.5 K/cumm [...] revised on 2017. Blood 03/27/2024 7:55 AM MATERIAL LOADER 03/27/2024 7:58 AM MATERIAL LOADER us Antonia Triana MD LAB BLOOD ORDERABLES F inal Result [facility] ([place]) 1 [facility] Department [place] [address] * (ABNORMAL) CBC with auto differential (03/27/2024 7:55 AM MATERIAL LOADER) WBC 8.9 3.8 - 9.9 K/cumm Hgb 12.6 11.9 - 15.5 g/dL [facility] ([place]) Hct 38.1 35.6 - 45.5 % [facility] ([place]) Plt 350 150 - 400 K/cumm [facility] ([place]) MPV 9.1 9.1 - 12.3 [...] [facility] ([facility]) Blood 03/27/2024 7:55 AM MATERIAL LOADER 03/27/2024 7:58 AM MATERIAL LOADER Antonia Triana MD LAB BLOOD ORDERABLES F inal Result Performing Organization Address City/[facility] Co de Phone Number [facility] ([place]) 1 [facility] [place] [address] * hCG, blood, quantitative (03/27/2024 7:55 AM MATERIAL LOADER) [facility] hCG, quant <5.0 0.0 - 5.0 IUnits/L Comment: Interpretive Data Male: < 5 IU/L Non- premenopausal Female: <5 IU/L The [employer] hCG Beta Quant assay procedure was used. Results from different manufacturers or methods may not be comparable. ??Serial testing should be performed using the same method. Interpretive Data was last revised on 2023 Blood 03/27/2024 7:55 AM MATERIAL LOADER 03/27/2024 7:58 AM MATERIAL LOADER Antonia Triana MD LAB BLOOD ORDERABLES F inal Result [facility] ([place]) 1 [facility] [place] [address] * Lipase (03/27/2024 7:55 AM MATERIAL LOADER) Lipase 13 10 - 99 Units/L Blood 03/27/2024 7:55 AM MATERIAL LOADER 03/27/2024 7:58 AM MATERIAL LOADER us Antonia Triana MD LAB BLOOD ORDERABLES F inal Result [facility] ([place]) 1 [facility] Department [place] [address] * Comprehensive metabolic panel (03/27/2024 7:55 AM MATERIAL LOADER) Sodium 136 135 - 145 mmol/L Potassium, pl 3.7 3.3 - 4.9 mmol/L [facility] ([place]) Chloride 103 97 - 110 mmol/L [facility] ([place]) CO2 22 22 - 32 mmol/L [facility] ([place]) Anion gap 11 2 - 15 mmol/L [facility] ([place]) BUN 9 6 - 25 mg/dL [facility] ([facility] Creatinine 0.60 0.60 - 1.10 mg/dL [facility] ([facility]) Glucose 118 70 - 199 mg/dL [facility] ([facility] Comment: Interpretive Data Fasting glucose [...] Hemolyzed S pecimen Blood 03/27/2024 7:55 AM MATERIAL LOADER 03/27/2024 7:58 AM MATERIAL LOADER us Antonia Triana MD LAB BLOOD ORDERABLES F inal Result [facility] ([place]) 1 [facility] [place] [address] from Last 3 Months Insurance [facility] Care Teams Crucible Packer Relationship Specialty Start Date End Date Jose Alfredo Burgos MD [address] [place] [address] [address] [place] [address] PCP - General Family Medicine 10/14/23
--- NOTE | 2024-06-21 14:00 | ED.GENADULT ---
HPI - General Adult General Chief complaint: Unspecified Stated complaint: want new antibiotics for tooth infection Time Seen by Provider: 06/21/24 14:04 Focused HPI: This is a 38 year old female that presents to the ER for toothache. Reports several rotten teeth. She has been trying to get into a dentist, but the appointment is not for another month. She was recently on Amoxicillin without relief. Denies fevers. GENERAL: Well-appearing, well-nourished, and in no acute distress. HEAD: Normocephalic, atraumatic. CHEST: Clear to auscultation. ?No respiratory distress. HEART: Regular rate and rhythm.? NEURO: ?Alert and oriented x3. Patient screened in triage and initial orders placed.? ?Additional care and disposition to be based upon?diagnostic testing and treatment. Related Data Allergies Allergy/AdvReac Type Severity Reaction Status Date / Time No Known Drug Allergies Allergy NA Verified 06/21/24 12:42 Review of Systems Review of Systems: CONSTITUTIONAL: Denies fever ENT: Reports dentalgia All systems reviewed & are unremarkable except as noted in HPI and below PMFSH Past Medical History Medical History (Updated 06/21/24 @ 14:05 by Mraii Warner PA-C) No active medical problems Social History Social History (Updated 06/21/24 @ 14:05 by Marii Warner PA-C) Smoking status: Current every day smoker Exam Narrative: GENERAL: Well-appearing, well-nourished, and in no acute distress. HEAD: Normocephalic, atraumatic. EYES: EOMI. ENT: Mucous membranes moist. Oropharynx without tonsillar hypertrophy exudate or other lesions. No trismus. Poor dentition. Several decaying teeth. No focal erythema or edema to suggest abscess NECK: Supple. No adenopathy or masses. CHEST: No respiratory distress. HEART: Regular rate EXTREMITIES: Normal range of motion. No edema. SKIN: Warm, dry, no rash. NEURO: No focal deficits. Alert and oriented x3. PSYCH: Normal mood and affect Course Course Emergency Course: patient agrees with plan of care Vital Signs Vital signs: Vital Signs Temperature 97.6 F 06/21/24 12:47 Pulse Rate 102 H 06/21/24 12:47 Respiratory Rate 16 06/21/24 12:47 Blood Pressure 149/99 H 06/21/24 12:47 Pulse Oximetry 96 06/21/24 12:47 Temperature 97.6 F 06/21/24 12:47 Pulse Rate 102 H 06/21/24 12:47 Respiratory Rate 16 06/21/24 12:47 Blood Pressure 149/99 H 06/21/24 12:47 Pulse Oximetry 96 06/21/24 12:47 Medical Decision Making MDM Narrative Medical decision making narrative: Patient presents to the ER for toothache. Ongoing over the last couple of weeks. Patient with poor dentition. Several decaying teeth. No focal abscess on exam. Will be started on Clindamycin. Instructed to follow up with a dentist. She was given warnings to return to the ER Differential Diagnosis Differential Diagnosis: toothache, dental abscess Vital Signs Vital Signs: Vital Signs Temperature 97.6 F 06/21/24 12:47 Pulse Rate 102 H 06/21/24 12:47 Respiratory Rate 16 06/21/24 12:47 Blood Pressure 149/99 H 06/21/24 12:47 Pulse Oximetry 96 06/21/24 12:47 Temperature 97.6 F 06/21/24 12:47 Pulse Rate 102 H 06/21/24 12:47 Respiratory Rate 16 06/21/24 12:47 Blood Pressure 149/99 H 06/21/24 12:47 Pulse Oximetry 96 06/21/24 12:47 Critical Care Time Critical Care Time Critical Care Time: No Discharge Plan Discharge Clinical Impression: Toothache Patient Disposition: Home, Self-Care Condition: Stable Patient Language: Tanzanian Prescriptions: New clindamycin HCl 300 mg capsule 300 mg PO Q6H 10 Days Qty: 40 0RF hydrocodone-acetaminophen 5-325 mg tablet 1 tablet PO Q6H PRN (Reason: pain) Qty: 10 0RF No Action hydrocodone-acetaminophen 5-325 mg tablet 1 tablet PO Q12H PRN (Reason: pain) Qty: 14 0RF
[2024-06-21 14:10] VITALS: BP 155/103; PULSE 94; RESP 16; O2SAT 98
== END 2024-06-21 14:15 | disposition home or self-care (01) ==
PROVIDERS: Emergency Provider Physician Assistant
DX: K08.89 Other specified disorders of teeth and supporting structures (principal); F17.200 Nicotine dependence, unspecified, uncomplicated
CPT/HCPCS: 99283

== ENCOUNTER 2024-10-18 10:09 | Emergency (ER) | payer OTHER, SELFPAY ==
--- OUTSIDE RECORDS SUMMARY | 2024-10-18 10:14 | XMS_ITS | Encounter Summary ---
Author Organization [facility] Address [address] [place] [address] Phone Care Team Providers Care Mental Health Therapist Name Role Phone Jose Alfredo Burgos MD Primary Care Provider [phone] Latoya Conroy APRN, AIRCRAFT NAVIGATOR Unavailable Michael Ibarra MD Unavailable [phone] Reason for Visit * Reason Comments Medication Refill Encounter Details Date Type Department Care Team (Late st Contact Info) Description 04/13/2024 Refill [facility] - Gastroenterology - [place] [address] [place] [address] Latoya Conroy APRN, AIRCRAFT NAVIGATOR [address] [place] [address] Medication Refill Social History Tobacco Use Types [...] Tete Jean RN - 04/13/2024 8:08 AM SUPERVISOR OPERATIONS Medication refilled and signed per [facility] chronic medication standing order for pediatric and adult patients. RVISOR OPERATIONS documented in this encounter Plan of Treatment Not on file documented as of this encounter Visit Diagnoses Diagnosis Pain of upper abdomen Abdominal pain, other specified site documented in this encounter Care Teams Mental Health Therapist Relationship Specialty Start Date End Date Jose Alfredo Burgos MD [address] [place] [address] PCP - General Family Medicine 09/16/23 Latoya Conroy APRN, AIRCRAFT NAVIGATOR [address] [facility] [place] [address] Nurse Practitioner Advanced Practice Nurse 12/22/23 Michael Ibarra MD [address] [address] Consulting Physician General Surgery 06/07/24 documented as of this encounter
--- OUTSIDE RECORDS SUMMARY | 2024-10-18 10:14 | XMS_ITS | Referral Summary ---
Author Organization [facility] Address [address] [place] [address] Care Team Providers Care Supervisor Grading Name Role Phone Jose Alfredo Burgos MD Primary Care Provider [phone] Encounters Date Type Department Care Team Description 09/26/2024 9:05 AM CDT - 09/26/2024 10:59 AM CDT Emergency [facility] Emergency Department [address] [place] [id number] Saba Montano MD Pain due to dental caries (Primary Dx); Joint swelling Discharge Disposition: Discharge to home or self care 08/11/2024 10:24 AM CDT - 08/11/2024 10:48 AM CDT Emergency [facility] Emergency Department [address] [place] [id number] Dari Kevin MD Encounter for medication refill (Primary Dx) Discharge Disposition: Discharge to home or self care from Last 3 Months Allergies No known active allergies Medications dextroamphetam ine-amphetamin e (ADDERALL) 5 mg tablet Take 1 tablet (5 mg total) by mouth daily 3 Active buprenorphine- naloxone (SUBOXONE) 2-0.5 mg per SL tablet Place 1 tablet under the tongue 3 Active hydrOXYzine (ATARAX) 25 mg tablet Take 1 tablet (25 mg total) by mouth every 4 (four) hours as needed 3 Active labetaloL (NORMODYNE,TRA NDATE) 200 mg tablet Take 1 tablet (200 mg total) by mouth every 8 (eight) hours 6 Active gabapentin (NEURONTIN) 300 mg capsule Take 2 capsules (600 mg total) by mouth 3 (three) times a day for 7 days 42 capsule 4 Active chlorhexidine (PERIDEX) 0.12 % solutionIndica tions:Dentalgi a,Dental caries into pulp Apply 10 mL to the mouth or throat 3 (three) times a day Swish around in mouth for 5 minutes then spit out. Collaborating physician Victor M Han MD 240 mL 1 4 Active QUEtiapine (SEROquel) 50 mg tablet Take 1 tablet (50 mg total) by mouth 2 (two) times a day 60 tablet 5 Active QUEtiapine (SEROquel) 100 mg tablet Take 1 tablet (100 mg total) by mouth nightly 30 tablet 5 Active ketorolac (TORADOL) 10 mg tabletIndicati ons:Severe Pain Take 1 tablet (10 mg total) by mouth every 6 (six) hours as needed for pain Take with food 20 tablet 5 Active HYDROcodone-ac etaminophen (NORCO) 5-325 mg per tabletIndicati ons:Pain Take 1-2 tablets by mouth every 6 (six) hours as needed for pain 12 tablet 5 Active amoxicillin-cl avulanate (AUGMENTIN) 875-125 mg per tablet Take 1 tablet by mouth every 12 (twelve) hours for 10 days 20 tablet 5 025 predniSONE (DELTASONE) 20 mg tablet Take 3 tablets (60 mg) by mouth daily for 3 days starttomorrow 9 tablet 5 025 Active Problems Problem Noted Date Diagnosed Date [...] making you feel afraid or unsafe? 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 Gender Identity Not on file Sexual Orientation Not on file Last Filed Vital Signs Vital Sign Reading Time Taken Comments Blood Pressure 142/92 09/26/2024 10:58 AM CDT Pulse 68 09/26/2024 10:58 AM CDT Temperature 37.2 C (99 F) 09/26/2024 9:02 AM CDT Respiratory Rate 18 09/26/2024 9:02 AM CDT Oxygen Saturation 99% 09/26/2024 10:58 AM CDT Inhaled Oxygen Concentration - - Weight 90.7 kg (200 lb) 09/26/2024 9:02 AM CDT Height 177.8 cm (5' 10) 09/26/2024 9:02 AM CDT Body Mass Index 28.7 09/26/2024 9:02 AM CDT Plan of Treatment Not on file Procedures Procedure Name Priority Date/Time Associated Diagnosis Comments XR HAND RIGHT 3 OR MORE VIEWS ED 09/26/2024 9:38 AM CDT from Last 3 Months Results * XR Hand Right 3 or More Views (09/26/2024 9:38 AM CDT) Anatomical Region Laterality Modality Upper Extremities, Hand Right Computed Radiography 09/26/2024 10:0 6 AM CDT Narrative 09/26/2024 10:08 AM CDT EXAM DESCRIPTION: XR HAND RIGHT 3 OR MORE VIEWS REASON FOR STUDY: swelling States having 1st digit pain and swelling X 1 week No known injury TECHNIQUE: 3 radiographic view(s) of the right hand . COMPARISON: None FINDINGS: BONES/JOINTS: There is no acute fracture, malalignment or osseous abnormality. The joint spaces are normal. SOFT TISSUES: Within normal limits. IMPRESSION: No acute osseous abnormality. THIS IS AN ELECTRONICALLY VERIFIED FINAL REPORT 09/26/2024 10:08 AM - Electronically signed by Shantell Londono M.D. FT: FT Report ID: [id number] Reading Location: [id number] Procedure Note Shantell Valle MD - 09/26/2024 EXAM DESCRIPTION: XR HAND RIGHT 3 OR MORE VIEWS REASON FOR STUDY: swelling States having 1st digit pain and swelling X 1 week No known injury TECHNIQUE: 3 radiographic view(s) of the right hand . COMPARISON: None FINDINGS: BONES/JOINTS: There is no acute fracture, malalignment or osseousabnormality. The joint spaces are normal. SOFT TISSUES: Within normal limits. IMPRESSION: No acute osseous abnormality. THIS IS AN ELECTRONICALLY VERIFIED FINAL REPORT 09/26/2024 10:08 AM - Electronically signed by Shantell Londono M.D. FT: FT Report ID: [id number] Reading Location: [id number] Saba Montano MD IMG XR PROCEDURES F inal Result from Last 3 Months Insurance [facility] Care Teams Supervisor Grading Relationship Specialty Start Date End Date Jose Alfredo Burgos MD [address] [place] [address] [address] [place] [id number] PCP - General Family Medicine 10/14/23
--- OUTSIDE RECORDS SUMMARY | 2024-10-18 10:14 | XMS_ITS | Encounter Summary ---
Author Organization [facility] Address [address] [facility] [place] [address] Phone Care Team Providers Care Barrel Charrer Helper Name Role Phone Jose Alfredo Burgos MD Primary Care Provider [phone] Latoya Conroy APRN, MANAGER EMERGENCY DEPARTMENT Unavailable Michael Ibarra MD Unavailable [phone] Reason for Visit * Reason Comments Medication Refill Encounter Details Date Type Department Care Team (Late st Contact Info) Description 08/04/2024 Refill [facility] - Gastroenterology - [place] [address] [place] [address] Latoya Conroy APRN, MANAGER EMERGENCY DEPARTMENT [address] [place] [address] Medication Refill Social History Tobacco Use Types [...] Telephone Encounter - Tete Jean RN - 08/06/2024 8:34 AM CDT Medication refilled and signed per [facility] [place] order for pediatric and adult patients. documented in this encounter Plan of Treatment Not on file documented as of this encounter Visit Diagnoses Diagnosis Pain of upper abdomen Abdominal pain, other specified site documented in this encounter Care Teams Barrel Charrer Helper Relationship Specialty Start Date End Date Jose Alfredo Burgos MD [address] [place] [address] PCP - General Family Medicine 09/16/23 Latoya Conroy APRN, MANAGER EMERGENCY DEPARTMENT [address] [place] [address] Nurse Practitioner Advanced Practice Nurse 12/22/23 Michael Ibarra MD 2 [facility] [address] [address] Consulting Physician General Surgery 06/07/24 documented as of this encounter
--- OUTSIDE RECORDS SUMMARY | 2024-10-18 10:14 | XMS_ITS | Clinical Summary ---
Author Organization [facility] Address [address] [place] [address] Care Team Providers Care Test Deskman Name Role Phone Jose Alfredo Burgos MD Primary Care Provider [phone] Allergies No known active allergies Medications dextroamphetam [...] CDT - 09/26/2024 10:59 AM CDT Emergency [facility] Emergency Department [address] [place] [address] Saba Montano MD Pain due to dental caries (Primary Dx); Joint swelling Discharge Disposition: Discharge to home or self care 08/11/2024 10:24 AM CDT - 08/11/2024 10:48 AM CDT Emergency [facility] Emergency Department [address] [place] [address] Dari Kevin MD Encounter for medication refill [...] on file 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 FT: FT Report ID: [id number] Reading Location: [id number] Procedure Note Shantell Valle MD - 09/26/2024 [...] Shantell Londono M.D. FT: FT Report ID: [id number] Reading Location: [id number] Saba Montano MD IMG XR PROCEDURES F inal Result from Last 3 Months Insurance [facility] Care Teams Test Deskman Relationship Specialty Start Date End Date Jose Alfredo Burgos MD [address] [place] [address] [address] [place] [address] PCP - General Family Medicine 10/14/23
--- OUTSIDE RECORDS SUMMARY | 2024-10-18 10:14 | XMS_ITS | Encounter Summary ---
Author Organization [facility] Address [address] [facility] [address] [facility] [address] Phone Care Team Providers Care Employment Program Representative Name Role Phone Jose Alfredo Burgos MD Primary Care Provider Latoya Conroy APRN, DELIVERY TRUCK DRIVER Unavailable Michael Ibarra MD Unavailable [phone] Encounter Details Date Type Department Care Team (Late st Contact Info) Description 09/07/2023 [facility] [address] [place] [address] Madi Tabor, [facility] [address] [place] [address] Encounter for pre-employment examination Social [...] 0.12 <8.01 IU/mL 09/09/2023 10:31 AM CDT [facility] TB ANTIGEN 1 0.01 <0.35 IU/mL 09/09/2023 10:31 AM CDT [facility] TB ANTIGEN 2 0.01 <0.35 IU/mL 09/09/2023 10:31 AM CDT [facility] MITOGEN CONTROL 9.88 >0.49 IU/mL 09/09/19 10:31 AM CDT [facility] INTEPRETATION TB NEGATIVE NEGATIVE, NEGATIVE (TB antigen response less than 25% of internal negative control value) 09/09/2023 10:31 AM CDT [facility] Comment:No immune response t o Mycobacterium tuberculosis antigens was noted. M. tuberculosis infection unlikely. Blood No Phlebotomy Charged / Unknown 09/07/2023 10:05 AM CDT 09/07/2023 3:10 PM CDT Narrative [facility] - 09/09/2023 10:31 AM CDT A POSITIVE [...] otherwise immunocompromised individuals. https://www.cdc.gov/tb/publications/guidelines/testing.htm us Madi Tabor [facility] IMMUNOLOGY ORDERABLES Final Result [facility] [address] [place] [address], documented in this encounter Visit Diagnoses Diagnosis Encounter for pre-employment examination Health examination of defined subpopulation documented in this encounter Care Teams Employment Program Representative Relationship Specialty Start Date End Date Jose Alfredo Burgos MD [address] [place] [address] [place] [address] PCP - General Family Medicine 09/16/23 Latoya Conroy APRN, RIC [address] [place] [address] Nurse Practitioner Advanced Practice Nurse 12/22/23 Michael Ibarra MD 2 [facility] [address] [address] Consulting Physician General Surgery 06/07/24 documented as of this encounter
--- OUTSIDE RECORDS SUMMARY | 2024-10-18 10:14 | XMS_ITS | Clinical Summary ---
Author Organization [facility] Address [address] [place] [address] Phone Care Team Providers Care Door Slinger Name Role Phone Jose Alfredo Burgos MD Primary Care Provider [phone] Latoya Conroy APRN, LAWN TECHNICIAN Unavailable Michael Ibarra MD Unavailable [phone] Medications HYDROcodone-acet aminophen (NORCO) 5-325 MG Tablet [...] for Nausea - 1st line. 30 Tablet 4 Active Additional Information Patient not taking.Reported on 06/07/2024 Acetaminophen (TYLENOL PO) Take 500 mg by mouth as needed. Active dicyclomine (BENTYL) 10 MG CapsuleIndicatio ns:Pain of upper abdomen TAKE ONE CAPSULE BY MOUTH THREE TIMES DAILY BEFORE A MEAL 90 Capsule 3 5 Active acetaminophen-co deine (TYLENOL #3) 300-30 MG TabletIndication s:Pain, dental Take 1-2 Tablets by mouth every 4 hours as needed for Moderate or more severe pain. 20 Tablet 5 Active Active Problems Problem Noted Date Diagnosed Date Chronic diarrhea 12/16/2022 Cannabis abuse 12/16/2022 Encounters Date Type Department Care Team Description 08/20/2024 Transcribe Orders [facility] Central Scheduling [address] [place] [address] Michael Ibarra MD Nausea vomiting and diarrhea (Primary Dx) 08/08/2024 8:01 PM CDT - 08/09/2024 1:02 AM CDT [facility] [address] [place] [address] Franck Conner MD Generalized abdominal pain Discharge Disposition: Discharged to home or Selfcare 08/08/2024 Travel 08/08/2024 [facility] [address] [place] [address] Michael Ibarra MD Rectal Bleeding 08/04/2024 [facility] [address] [place] [address] Latoya Conroy APRN, LAWN TECHNICIAN Medication Refill from Last 3 Months Family [...] Sign Reading Time Taken Comments Blood Pressure 134/80 08/09/2024 12:50 AM CDT Pulse 90 08/09/2024 12:50 AM CDT Temperature 36.7 C (98 F) 08/09/2024 12:50 AM CDT Respiratory Rate 18 08/09/2024 12:50 AM CDT Oxygen Saturation 98% 08/09/2024 12:50 AM CDT Inhaled Oxygen Concentration - - Weight 93 kg (205 lb) 08/08/2024 4:46 PM CDT Height 177.8 cm (5' 10) 08/08/2024 4:46 PM CDT Body Mass Index 29.41 08/08/2024 4:46 PM CDT Plan of Treatment Health Maintenance Due Date Last Done Comments Hepatitis C Virus (HCV) Screening 1986 Hepatitis B Immunization (2 of 3 - 3-dose series) 01/15/1998 12/18/1997 Pneumococcal Immunization Combined (1 of 2 - PCV) 2005 Pap Smear 2007 Cervical Cancer Screening (CCS) 2016 HPV/Cotest 2016 SARS-COV-2 Immunization ( - season) 2024 Influenza Immunization (Seas on Ended) 2025 Respiratory Syncytial Virus (RSV) Immunization (Adult) (1 - 1-dose 75+ series) 2061 TdaP Immunization Completed 07/02/2015, 04/30/2013, 09/21/2010 Meningococcal Immunization (ACWY) Aged Out No longer eligible b ased on patient's age to complete this topic Rotavirus Immunization Aged Out No lo nger eligible based on patient's age to complete this topic Procedures Procedure Name Priority Date/Time Associated Diagnosis Comments CT ABDOMEN PELVIS W/ CONTRAST Stat with Interpretation 08/08/2024 9:38 PM CDT POCT URINE HCG () STAT 08/08/2024 5:32 PM CDT URINE DRUG SCREEN STAT 08/08/2024 5:1 3 PM CDT URINALYSIS REFLEX IF INDICATED BY ABNORMAL RESULTS STAT 08/08/2024 5:13 PM CDT CBC WITH AUTO DIFFERENTIAL STAT 08/08/2024 4:53 PM CDT LIPASE STAT 08/08/2024 4:53 PM CDT CMP (COMPREHENSIVE METABOLIC PANEL) STAT 08/08/2024 4:53 PM CDT COMPLETE BLOOD COUNT (CBC) WITH DIFF STAT 08/08/2024 4:53 PM CDT from Last 3 Months Results * CT ABDOMEN PELVIS W/ CONTRAST (08/08/2024 9:38 PM CDT) Anatomical Region Laterality Modality Abdomen N/A Computed Tomogra phy 08/08/2024 10:0 7 PM CDT Impressions 08/08/2024 10:09 PM CDT IMPRESSION: 1. No acute intra-abdominal/pelvic abnormality. 2. Additional findings; as detailed. Narrative 08/08/2024 10:09 PM CDT EXAM DESCRIPTION: CT ABDOMEN PELVIS W/ CONTRAST REASON FOR STUDY: c/o epigastric pain with vomiting that has been going on for several days with urinary hesitancy. HX: Hernia, Ovarian cyst with surgical removal TECHNIQUE: CT scan of the abdomen and pelvis performed with intravenous and without oral contrast using helical scanning technique with dynamic intravenous contrast injection. Reconstructed coronal and sagittal MPR images reviewed. All images stored on PACS. Automated exposure control was used as a dose optimization technique for this examination. CONTRAST TYPE/DOSE: 100mL of IOPAMIDOL 76 % IV SOLN injected via Intravenous COMPARISON: None available. FINDINGS: LOWER CHEST: No significant pulmonary abnormalities. No effusion. LIVER: Normal size. No identified cystic or solid masses. GALLBLADDER: No stones identified. No wall thickening or inflammatory changes. BILE DUCTS: No intrahepatic or extrahepatic ductal dilatation. SPLEEN: Normal size. No focal lesions. PANCREAS: No identified cystic or solid masses. No significant calcifications. No adjacent inflammation or peripancreatic fluid collections. Pancreatic duct not dilated. ADRENALS: Normal. KIDNEYS/URINARY TRACT: No identified significant cystic or solid masses. No visualized stones. No hydronephrosis or hydroureter. Symmetric enhancement. Urinary bladder is unremarkable. GI: Scattered fluid filled loops of small bowel. No dilated bowel loops. No obvious wall thickening. Normal appendix. Ezmz-ce-wpzjzcjz amount of stool volume is seen scattered throughout the colon. No significant diverticular disease. PERITONEUM: No ascites or free air. RETROPERITONEUM: No mass or adenopathy. REPRODUCTIVE: Heterogeneous globular enhancement of the uterus likely related to fibroids. Otherwise, unremarkable. VASCULATURE: No abdominal aortic aneurysm. MUSCULOSKELETAL: No acute abnormality. OTHER: No other abnormality. THIS IS AN ELECTRONICALLY VERIFIED FINAL REPORT 08/08/2024 10:07 PM - Electronically signed by Prem Monge M.D. MF: [id number] Report ID: [id number] Reading Location: [id number] Procedure Note Prem Monge, DO - 08/08/2024 EXAM DESCRIPTION: CT ABDOMEN PELVIS W/ CONTRAST REASON FOR STUDY: c/o epigastric pain with vomiting that has been going on for several days with urinary hesitancy. HX: Hernia, Ovarian cyst with surgical removal TECHNIQUE: CT scan of the abdomen and pelvis performed with intravenous and without oral contrast using helical scanning technique with dynamic intravenous contrast injection. Reconstructed coronal and sagittal MPR images reviewed. All images stored on PACS. Automated exposure control was used as a dose optimization technique for this examination. CONTRAST TYPE/DOSE: 100mL of IOPAMIDOL 76 % IV SOLN injected via Intravenous COMPARISON: None available. FINDINGS: LOWER CHEST: No significant pulmonary abnormalities. No effusion. LIVER: Normal size. No identified cystic or solid masses. GALLBLADDER: No stones identified. No wall thickening or inflammatory changes. BILE DUCTS: No intrahepatic or extrahepatic ductal dilatation. SPLEEN: Normal size. No focal lesions. PANCREAS: No identified cystic or solid masses. No significant calcifications. No adjacent inflammation or peripancreatic fluid collections. Pancreatic duct not dilated. ADRENALS: Normal. KIDNEYS/URINARY TRACT: No identified significant cystic or solid masses. No visualized stones. No hydronephrosis or hydroureter. Symmetric enhancement. Urinary bladder is unremarkable. GI: Scattered fluid filled loops of small bowel. No dilated bowel loops. No obvious wall thickening. Normal appendix. Ogmp-uu-fcgaubyi amount of stool volume is seen scattered throughout the colon. No significant diverticular disease. PERITONEUM: No ascites or free air. RETROPERITONEUM: No mass or adenopathy. REPRODUCTIVE: Heterogeneous globular enhancement of the uterus likely related to fibroids. Otherwise, unremarkable. VASCULATURE: No abdominal aortic aneurysm. MUSCULOSKELETAL: No acute abnormality. OTHER: No other abnormality. THIS IS AN ELECTRONICALLY VERIFIED FINAL REPORT 08/08/2024 10:07 PM - Electronically signed by Prem Monge M.D. MF: [id number] Report ID: [id number] Reading Location: [id number] IMPRESSION: 1. No acute intra-abdominal/pelvic abnormality. 2. Additional findings; as detailed. Franck Conner MD IMG CT ORDERABLES Final R esult * POCT Urine HCG () (08/08/2024 5:32 PM CDT) Pathologist [facility] POC URINE Negative [facility] POC URINE CONTROL Endband Sizer Pass [facility] Urine 08/08/2024 5:32 PM CDT Clovis Paz MD POINT OF CARE TESTING (MANUAL) F inal Result [facility] [address] [place] [address] * (ABNORMAL) Urinalysis w/ Reflex (08/08/2024 5:13 PM CDT) Pathologist [facility] SPECIFIC GRAVITY 1.015 1.003 - 1.030 08/08/2024 5:52 PM CDT [facility] URINE PH 6.5 5.0 - 9.0 08/08/2024 5:52 PM CDT [facility] WBC ESTERASE Negative Negative 08/08/2024 5:52 PM CDT [facility] NITRITE Negative Negative 08/08/2024 5:52 PM CDT [facility] PROTEIN, RANDOM URINE 30 mg/dL(A) Negative 08/08/2024 5:52 PM CDT [facility] URINE GLUCOSE, QUAL Negative Negative 08/08/2024 5:52 PM CDT [facility] URINE KETONES Negative Negative 08/08/2024 5:52 PM CDT [facility] UROBILINOGEN Normal Normal mg/dL 08/08/2024 5:52 PM CDT [facility] URINE BLOOD Negative Negative javier/ul 08/08/2024 5:52 PM CDT [facility] URINALYSIS COLOR Yellow 08/09/19 5:52 PM CDT [facility] URINALYSIS CLARITY Clear 08/08/2024 5:52 PM CDT [facility] WBC (Urine) 0-5 Negative, 0-5 /hpf 08/08/2024 5:52 PM CDT [facility] URINE RBC'S Negative Negative, 0-2 /hpf 08/08/2024 5:52 PM CDT [facility] EPITHELIAL CELLS Moderate amount /lpf 08/08/2024 5:52 PM CDT [facility] BACTERIA, URINE Few(A) Negative /hpf 08/08/2024 5:52 PM CDT [facility] Urine URINE SPECIMEN / Unknown Non-Phlebotomy Collection / Unknown 08/08/2024 5:13 PM CDT 08/08/2024 5:34 PM CDT us Clovis Paz MD URINE ORDERABLES Final Result [facility] [address] [place] [address] * (ABNORMAL) Urine Drug Screen (08/08/2024 5:13 PM CDT) UR AMPHETAMINE NON DETECTED NON DETECTED 08/09/2024 12:01 AM CDT [facility] UR BENZODIAZEPINES NON DETECTED NON DETECTED 08/09/2024 12:01 AM CDT [facility] UR COCAINE METABOLITE NON DETECTED NON DETECTED 08/09/2024 12:01 AM CDT [facility] UR OPIATES NON DETECTED NON DETECTED 08/09/2024 12:01 AM CDT [facility] UR PHENCYCLIDINE NON DETECTED NON DETECTED 08/09/2024 12:01 AM CDT [facility] UR CANNABINOID DETECTED(A) NON DETECTED 08/09/2024 12:01 AM CDT [facility] UR BARBITURATE NON DETECTED NON DETECTED 08/09/2024 12:01 AM CDT [facility] UR FENTANYL NON DETECTED NON DETECTED 08/09/2024 12:01 AM CDT [facility] Urine URINE SPECIMEN / Unknown Non-Phlebotomy Collection / Unknown 08/08/2024 5:13 PM CDT 08/08/2024 5:34 PM CDT us Franck Conner MD URINE ORDERABLES Final Re sult [facility] [address] [place] [address] * (ABNORMAL) CBC with Auto Differential (08/08/2024 4:53 PM CDT) [facility] WBC 8.60 4.00 - 12.00 10(3)/mcL 08/08/2024 5:57 PM CDT [facility] RBC 3.21(L) 3.80 - 5.30 10(6)/mcL 08/08/2024 5:57 PM CDT [facility] HEMOGLOBIN (HGB) 11.0(L) 12.0 - 15.8 g/dL 08/08/2024 5:57 PM CDT [facility] HEMATOCRIT (HCT) 35.4(L) 36.0 - 47.0 % 08/08/2024 5:57 PM CDT [facility] MCV 110.3(H) 82.0 - 96.0 fL 08/08/2024 5:57 PM CDT [facility] MCH 34.3(H) 26.0 - 34.0 pg 08/08/2024 5:57 PM CDT [facility] MCHC 31.1 31.0 - 36.0 g/dL 08/08/2024 5:57 PM CDT [facility] PLATELET COUNT 360 140 - 440 10(3)/mcL 08/08/2024 5:57 PM CDT [facility] RDW 12.8 11.8 - 15.5 % 08/08/2024 5:57 PM CDT [facility] MPV 9.6(L) 9.7 - 12.4 fL 08/08/2024 5:57 PM CDT [facility] NEUTROPHILS 49.4 47.0 - 73.0 % 08/08/2024 5:57 PM CDT [facility] LYMPHOCYTES 36.4 18.0 - 42.0 % 08/08/2024 5:57 PM CDT [facility] MONOCYTES 7.6 4.0 - 12.0 % 08/08/2024 5:57 PM CDT [facility] EOSINOPHILS 6.0(H) 0.0 - 5.0 % 08/08/2024 5:57 PM CDT [facility] BASOPHILS 0.6 0.0 - 1.0 % 08/08/2024 5:57 PM CDT [facility] ABSOLUTE NEUTROPHILS 4.25 1.60 - 7.70 10(3)/mcL 08/08/2024 5:57 PM CDT [facility] ABSOLUTE LYMPHOCYTES 3.13 1.30 - 3.20 10(3)/mcL 08/08/2024 5:57 PM CDT [facility] ABSOLUTE MONOCYTES 0.65 0.20 - 1.00 10(3)/mcL 08/08/2024 5:57 PM CDT [facility] ABSOLUTE EOSINOPHIL 0.52(H) 0.00 - 0.40 10(3)/mcL 08/08/2024 5:57 PM CDT [facility] ABSOLUTE BASOPHILS 0.05 0.00 - 0.10 10(3)/mcL 08/08/2024 5:57 PM CDT [facility] NRBC PER 100 WBC 0 08/09/19 5:57 PM CDT [facility] RESULTS ARE CONSISTENT WITH PERIPHERAL SMEAR REVIEW Yes 08/08/2024 5:57 PM CDT [facility] RBC MORPHOLOGY CONSISTENT WITH INDICES Yes 08/08/2024 5:57 PM CDT [facility] Blood Venipuncture / Unknown 08/08/2024 4:53 PM CDT 08/08/2024 5:17 PM CDT Clovis Paz MD HEMATOLOGY ORDERABLES Final Resu lt Performing Organization Address City/[facility]/ZIP Co de Phone Number [facility] [address] [place] [address] * Lipase (08/08/2024 4:53 PM CDT) LIPASE 28 8 - 78 U/L 08/08/2024 5:40 PM CDT [facility] Blood Venipuncture / Unknown 08/08/2024 4:53 PM CDT 08/08/2024 5:17 PM CDT Clovis Paz MD CHEMISTRY ORDERABLES Final Resul t [facility] [address] [place] [address] * CMP (08/08/2024 4:53 PM CDT) SODIUM 139 136 - 145 mmol/L 08/08/2024 5:40 PM CDT [facility] POTASSIUM 4.1 3.5 - 5.1 mmol/L 08/08/2024 5:40 PM CDT [facility] CHLORIDE 106 98 - 107 mmol/L 08/08/2024 5:40 PM CDT [facility] CO2, VENOUS 24 22 - 30 mmol/L 08/08/2024 5:40 PM CDT [facility] ANION GAP 13.1 <18.0 mmol/L 08/08/2024 5:40 PM CDT [facility] GLUCOSE 77 70 - 99 mg/dL 08/08/2024 5:40 PM CDT [facility] BUN 16 5 - 18 mg/dL 08/08/2024 5:40 PM CDT [facility] CREATININE, BLOOD 0.91 0.60 - 1.00 mg/dL 08/08/2024 5:40 PM CDT [facility] BUN/CREATININE RATIO 18 12 - 20 ratio 08/08/2024 5:40 PM CDT [facility] TOTAL PROTEIN 7.0 6.0 - 8.0 g/dL 08/08/2024 5:40 PM CDT [facility] ALBUMIN 3.9 3.5 - 5.0 g/dL 08/08/2024 5:40 PM CDT [facility] A/G RATIO 1.3 1.0 - 2.2 08/08/2024 5:40 PM CDT [facility] CALCIUM 8.7 8.7 - 10.5 mg/dL 08/08/2024 5:40 PM CDT [facility] T BILI 0.3 0.2 - 1.2 mg/dL 08/08/2024 5:40 PM CDT [facility] SGOT (AST) 17 <43 U/L 08/08/2024 5:40 PM CDT [facility] SGPT (ALT) 13 <56 U/L 08/08/2024 5:40 PM CDT [facility] ALKALINE PHOSPHATASE 74 40 - 150 U/L 08/08/2024 5:40 PM CDT [facility] GFR, ESTIMATED >60 >=60 08/08/2024 5:40 PM CDT [facility] Comment: Creatinine Clearance is the preferred criteria for selecting drug dose adjustments in renally impaired patients. The GFR is provided as additional pertinent clinical information. GFR is reported in mL/min/1.73 sq m. Calculation based on the Chronic Kidney Disease Epidemiology Collaboration (CKD- EPI) equation refit without adjustment for race. GFR, EST. >60 >=60 025 5:40 PM CDT [facility] GFR, EST. NONAFRICAN >60 >=60 08/08/2024 5:40 PM CDT [facility] Blood Venipuncture / Unknown 08/08/2024 4:53 PM CDT 08/08/2024 5:17 PM CDT us Clovis Paz MD CHEMISTRY ORDERABLES Final Resul t [facility] [address] [place] [address] from Last 3 Months Insurance MEDICAID HOLIDAY * Guarantor: [facility] JW Account Type Relation to Patient Date of Phone Billing Address Institutional Other [address] [place] [address] Care Teams Door Slinger Relationship Specialty Start Date End Date Jose Alfredo Burgos MD [address] [place] [id number] PCP - General Family Medicine 09/16/23 Latoya Conroy APRN, LAWN TECHNICIAN [address] [place] [address] Nurse Practitioner Advanced Practice Nurse 12/22/23 Michael Ibarra MD [address] [address] Consulting Physician General Surgery 06/07/24
--- OUTSIDE RECORDS SUMMARY | 2024-10-18 10:14 | XMS_ITS ---
Author Organization [facility] Address [address] [place] [address] Phone Care Team Providers Care Fiscal Clerk Name Role Phone Jose Alfredo Burgos MD Primary Care Provider [phone] Latoya Conroy APRN, LEAD MINER Unavailable Michael Ibarra MD Unavailable [phone] [facility] Status:Enrolled (Active) Start date:06/20/2024 Enrollment date:06/20/2024 Related social drivers of health:Intimate Partner Violence, Social Connections, Alcohol Use, Tobacco Use, Financial Resource Strain,Depression, Stress, Physical Activity, Food Insecurity, Transportation Needs, Housing Stability, Utilities Continued Care and Services Coordination
[2024-10-18 10:20] VITALS: BP 133/88; PULSE 97; RESP 16; TEMP 36.4; O2SAT 99
--- OUTSIDE RECORDS SUMMARY | 2024-10-18 12:10 | XMS_ITS | Referral Summary ---
Author Organization [facility] Address [address] [place] [address] Care Team Providers Care Roll Plugger Name Role Phone Jose Alfredo Burgos MD Primary Care Provider [phone] Encounters Date Type Department Care Team Description 09/26/2024 9:05 AM CDT - 09/26/2024 10:59 AM CDT Emergency [facility] Emergency Department [address] [place] [address] Saba Montano MD Pain due to dental caries (Primary Dx); Joint swelling Discharge Disposition: Discharge to home or self care 08/11/2024 10:24 AM CDT - 08/11/2024 10:48 AM CDT Emergency [facility] Emergency Department [address] [place] [address] Dari Kevin MD Encounter for medication refill [...] on file 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 FT: FT Report ID: [id number] Reading Location: [id number] Procedure Note Shantell Valle MD - 09/26/2024 [...] Shantell Londono M.D. FT: FT Report ID: [id number] Reading Location: [id number] Saba Montano MD IMG XR PROCEDURES F inal Result from Last 3 Months Insurance [facility] Care Teams Roll Plugger Relationship Specialty Start Date End Date Jose Alfredo Burgos MD [address] [place] [address] [address]MS [address] [place] [id number] PCP - General Family Medicine 10/14/23
--- OUTSIDE RECORDS SUMMARY | 2024-10-18 12:10 | XMS_ITS | Clinical Summary ---
Author Organization [facility] Address [address] [place] [address] Care Team Providers Care Picture Framer Name Role Phone Jose Alfredo Burgos MD Primary Care Provider [phone] Allergies No known active allergies Medications dextroamphetam [...] CDT - 09/26/2024 10:59 AM CDT Emergency [facility] Emergency Department [address] [place] [address] Saba Montano MD Pain due to dental caries (Primary Dx); Joint swelling Discharge Disposition: Discharge to home or self care 08/11/2024 10:24 AM CDT - 08/11/2024 10:48 AM CDT Emergency [facility] Emergency Department [address] [place] [address] Dari Kevin MD Encounter for medication refill [...] on file 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 FT: FT Report ID: [id number] Reading Location: [id number] Procedure Note Shantell Valle MD - 09/26/2024 [...] Shantell Londono M.D. FT: FT Report ID: [id number] Reading Location: [id number] Saba Montano MD IMG XR PROCEDURES F inal Result from Last 3 Months Insurance [facility] Care Teams Picture Framer Relationship Specialty Start Date End Date Jose Alfredo Bugros MD [address] [place] [address] [address] [place] [address] PCP - General Family Medicine 10/14/23
--- OUTSIDE RECORDS SUMMARY | 2024-10-18 12:10 | XMS_ITS | Clinical Summary ---
Author Organization [facility] Address [address] [place] [address] Phone Care Team Providers Care Lap Hand Tool Name Role Phone Jose Alfredo Burgos MD Primary Care Provider [phone] Latoya Conroy APRN, TRANSFORMER MECHANIC Unavailable Michael Ibarra MD Unavailable [phone] Medications HYDROcodone-acet aminophen (NORCO) 5-325 MG Tablet [...] Department Care Team Description 08/20/2024 Transcribe Orders [facility] Central Scheduling [address] [place] [address] Michael Ibarra MD Nausea vomiting and diarrhea (Primary Dx) 08/08/2024 8:01 PM CDT - 08/09/2024 1:02 AM CDT [facility] [address] [place] [address] Franck Conner MD Generalized abdominal pain Discharge Disposition: Discharged to home or Selfcare 08/08/2024 Travel 08/08/2024 [facility] [address] [place] [address] Michael Ibarra MD Rectal Bleeding 08/04/2024 Refill [facility] [address] [place] [address] Latoya Conroy APRN, TRANSFORMER MECHANIC Medication Refill from Last 3 Months Family [...] loops. No obvious wall thickening. Normal appendix. Icsd-ox-jnneebpi amount of stool volume is seen scattered [...] Prem Monge M.D. MF: LAKIA Report ID: [id number] Reading Location: [id number] Procedure Note Prem Monge, DO - 08/08/2024 [...] loops. No obvious wall thickening. Normal appendix. Fugk-ru-sfnukskn amount of stool volume is seen scattered [...] Prem Monge M.D. MF: LAKIA Report ID: [id number] Reading Location: [id number] IMPRESSION: 1. No acute intra-abdominal/pelvic abnormality. 2. Additional findings; as detailed. Franck Conner MD IMG CT ORDERABLES Final R esult * POCT Urine HCG () (08/08/2024 5:32 PM CDT) Pathologist [facility] POC URINE Negative [facility] POC URINE CONTROL Manager Urology Pass [facility] Urine 08/08/2024 5:32 PM CDT Clovis Paz MD POINT OF CARE TESTING (MANUAL) F inal Result [facility] [address] [place] [address] * (ABNORMAL) Urinalysis w/ Reflex (08/08/2024 5:13 PM CDT) Pathologist [facility] SPECIFIC GRAVITY 1.015 1.003 - 1.030 08/08/2024 5:52 PM CDT [facility] URINE PH 6.5 5.0 - 9.0 08/08/2024 5:52 PM CDT [facility] WBC ESTERASE Negative Negative 08/08/2024 5:52 PM CDT [facility] NITRITE Negative Negative 08/08/2024 5:52 PM CDT [facility] PROTEIN, RANDOM URINE 30 mg/dL(A) Negative 08/08/2024 5:52 PM CDT [facility] URINE GLUCOSE, QUAL Negative Negative 08/08/2024 5:52 PM CDT [facility] URINE KETONES Negative Negative 08/08/2024 5:52 PM CDT [facility] UROBILINOGEN Normal Normal mg/dL 08/08/2024 5:52 PM CDT [facility] URINE BLOOD Negative Negative javier/ul 08/08/2024 5:52 PM CDT [facility] URINALYSIS COLOR Yellow 08/09/19 5:52 PM CDT [facility] URINALYSIS CLARITY Clear 08/08/2024 5:52 PM CDT [facility] WBC (Urine) 0-5 Negative, 0-5 /hpf 08/08/2024 5:52 PM CDT [facility] URINE RBC'S Negative Negative, 0-2 /hpf 08/08/2024 5:52 PM CDT [facility] EPITHELIAL CELLS Moderate amount /lpf 08/08/2024 5:52 PM CDT [facility] BACTERIA, URINE Few(A) Negative /hpf 08/08/2024 5:52 PM CDT [facility] Urine URINE SPECIMEN / Unknown Non-Phlebotomy Collection / Unknown 08/08/2024 5:13 PM CDT 08/08/2024 5:34 PM CDT us Clovis Paz MD URINE ORDERABLES Final Result [facility] [address] [place] [address] * (ABNORMAL) Urine Drug Screen (08/08/2024 5:13 PM CDT) UR AMPHETAMINE NON DETECTED NON DETECTED 08/09/2024 12:01 AM CDT [facility] UR BENZODIAZEPINES NON DETECTED NON DETECTED 08/09/2024 12:01 AM CDT [facility] UR COCAINE METABOLITE NON DETECTED NON DETECTED 08/09/2024 12:01 AM CDT [facility] UR OPIATES NON DETECTED NON DETECTED 08/09/2024 12:01 AM CDT [facility] UR PHENCYCLIDINE NON DETECTED NON DETECTED 08/09/2024 12:01 AM CDT [facility] UR CANNABINOID DETECTED(A) NON DETECTED 08/09/2024 12:01 AM CDT [facility] UR BARBITURATE NON DETECTED NON DETECTED 08/09/2024 12:01 AM CDT [facility] UR FENTANYL NON DETECTED NON DETECTED 08/09/2024 12:01 AM CDT [facility] Urine URINE SPECIMEN / Unknown Non-Phlebotomy Collection / Unknown 08/08/2024 5:13 PM CDT 08/08/2024 5:34 PM CDT us Franck Conner MD URINE ORDERABLES Final Re sult [facility] [address] [place] [address] * (ABNORMAL) CBC with Auto Differential (08/08/2024 4:53 PM CDT) [facility] WBC 8.60 4.00 - 12.00 10(3)/mcL 08/08/2024 5:57 PM CDT [facility] RBC 3.21(L) 3.80 - 5.30 10(6)/mcL 08/08/2024 5:57 PM CDT [facility] HEMOGLOBIN (HGB) 11.0(L) 12.0 - 15.8 g/dL 08/08/2024 5:57 PM CDT [facility] HEMATOCRIT (HCT) 35.4(L) 36.0 - 47.0 % 08/08/2024 5:57 PM CDT [facility] MCV 110.3(H) 82.0 - 96.0 fL 08/08/2024 5:57 PM CDT [facility] MCH 34.3(H) 26.0 - 34.0 pg 08/08/2024 5:57 PM CDT [facility] MCHC 31.1 31.0 - 36.0 g/dL 08/08/2024 5:57 PM CDT [facility] PLATELET COUNT 360 140 - 440 10(3)/mcL 08/08/2024 5:57 PM CDT [facility] RDW 12.8 11.8 - 15.5 % 08/08/2024 5:57 PM CDT [facility] MPV 9.6(L) 9.7 - 12.4 fL 08/08/2024 5:57 PM CDT [facility] NEUTROPHILS 49.4 47.0 - 73.0 % 08/08/2024 5:57 PM CDT [facility] LYMPHOCYTES 36.4 18.0 - 42.0 % 08/08/2024 5:57 PM CDT [facility] MONOCYTES 7.6 4.0 - 12.0 % 08/08/2024 5:57 PM CDT [facility] EOSINOPHILS 6.0(H) 0.0 - 5.0 % 08/08/2024 5:57 PM CDT [facility] BASOPHILS 0.6 0.0 - 1.0 % 08/08/2024 5:57 PM CDT [facility] ABSOLUTE NEUTROPHILS 4.25 1.60 - 7.70 10(3)/mcL 08/08/2024 5:57 PM CDT [facility] ABSOLUTE LYMPHOCYTES 3.13 1.30 - 3.20 10(3)/mcL 08/08/2024 5:57 PM CDT [facility] ABSOLUTE MONOCYTES 0.65 0.20 - 1.00 10(3)/mcL 08/08/2024 5:57 PM CDT [facility] ABSOLUTE EOSINOPHIL 0.52(H) 0.00 - 0.40 10(3)/mcL 08/08/2024 5:57 PM CDT [facility] ABSOLUTE BASOPHILS 0.05 0.00 - 0.10 10(3)/mcL 08/08/2024 5:57 PM CDT [facility] NRBC PER 100 WBC 0 08/09/19 5:57 PM CDT [facility] RESULTS ARE CONSISTENT WITH PERIPHERAL SMEAR REVIEW Yes 08/08/2024 5:57 PM CDT [facility] RBC MORPHOLOGY CONSISTENT WITH INDICES Yes 08/08/2024 5:57 PM CDT [facility] Blood Venipuncture / Unknown 08/08/2024 4:53 PM CDT 08/08/2024 5:17 PM CDT Clovis Paz MD HEMATOLOGY ORDERABLES Final Resu lt Performing Organization Address City/[facility]/ZIP Co de Phone Number [facility] [address] [place] [address] * Lipase (08/08/2024 4:53 PM CDT) LIPASE 28 8 - 78 U/L 08/08/2024 5:40 PM CDT [facility] Blood Venipuncture / Unknown 08/08/2024 4:53 PM CDT 08/08/2024 5:17 PM CDT Clovis Paz MD CHEMISTRY ORDERABLES Final Resul t [facility] [address] [place] [address] * CMP (08/08/2024 4:53 PM CDT) SODIUM 139 136 - 145 mmol/L 08/08/2024 5:40 PM CDT [facility] POTASSIUM 4.1 3.5 - 5.1 mmol/L 08/08/2024 5:40 PM CDT [facility] CHLORIDE 106 98 - 107 mmol/L 08/08/2024 5:40 PM CDT [facility] CO2, VENOUS 24 22 - 30 mmol/L 08/08/2024 5:40 PM CDT [facility] ANION GAP 13.1 <18.0 mmol/L 08/08/2024 5:40 PM CDT [facility] GLUCOSE 77 70 - 99 mg/dL 08/08/2024 5:40 PM CDT [facility] BUN 16 5 - 18 mg/dL 08/08/2024 5:40 PM CDT [facility] CREATININE, BLOOD 0.91 0.60 - 1.00 mg/dL 08/08/2024 5:40 PM CDT [facility] BUN/CREATININE RATIO 18 12 - 20 ratio 08/08/2024 5:40 PM CDT [facility] TOTAL PROTEIN 7.0 6.0 - 8.0 g/dL 08/08/2024 5:40 PM CDT [facility] ALBUMIN 3.9 3.5 - 5.0 g/dL 08/08/2024 5:40 PM CDT [facility] A/G RATIO 1.3 1.0 - 2.2 08/08/2024 5:40 PM CDT [facility] CALCIUM 8.7 8.7 - 10.5 mg/dL 08/08/2024 5:40 PM CDT [facility] T BILI 0.3 0.2 - 1.2 mg/dL 08/08/2024 5:40 PM CDT [facility] SGOT (AST) 17 <43 U/L 08/08/2024 5:40 PM CDT [facility] SGPT (ALT) 13 <56 U/L 08/08/2024 5:40 PM CDT [facility] ALKALINE PHOSPHATASE 74 40 - 150 U/L 08/08/2024 5:40 PM CDT [facility] GFR, ESTIMATED >60 >=60 08/08/2024 5:40 PM CDT [facility] Comment: Creatinine Clearance is the preferred criteria for selecting drug dose adjustments in renally impaired patients. The GFR is provided as additional pertinent clinical information. GFR is reported in mL/min/1.73 sq m. Calculation based on the Chronic Kidney Disease Epidemiology Collaboration (CKD- EPI) equation refit without adjustment for race. GFR, EST. >60 >=60 025 5:40 PM CDT [facility] GFR, EST. NONAFRICAN >60 >=60 08/08/2024 5:40 PM CDT [facility] Blood Venipuncture / Unknown 08/08/2024 4:53 PM CDT 08/08/2024 5:17 PM CDT us Clovis Paz MD CHEMISTRY ORDERABLES Final Resul t [facility] [address] [place] [address] from Last 3 Months Insurance [place] * Guarantor: [facility] Account Type Relation to Patient Date of Phone Billing Address Institutional Other [address] [place] [address] Care Teams Lap Hand Tool Relationship Specialty Start Date End Date Jose Alfredo Burgos MD [address] [place] [address] PCP - General Family Medicine 09/16/23 Latoya Conroy APRN, TRANSFORMER MECHANIC [address] [place] [address] Nurse Practitioner Advanced Practice Nurse 12/22/23 Michael Ibarra MD [address] [address] Consulting Physician General Surgery 06/07/24
--- OUTSIDE RECORDS SUMMARY | 2024-10-18 12:10 | XMS_ITS ---
Author Organization [facility] Address [address] [place] [address] Phone Care Team Providers Care Biochemistry Professor Name Role Phone Jose Alfredo Burgos MD Primary Care Provider [phone] Latoya Conroy APRN, WELL CONTROL INSTRUCTOR Unavailable Michael Ibarra MD Unavailable [phone] [facility] Status:Enrolled (Active) Start date:06/20/2024 Enrollment date:06/20/2024 Related social drivers of health:Intimate Partner Violence, Social Connections, Alcohol Use, Tobacco Use, Financial Resource Strain,Depression, Stress, Physical Activity, Food Insecurity, Transportation Needs, Housing Stability, Utilities Continued Care and Services Coordination
--- OUTSIDE RECORDS SUMMARY | 2024-10-18 12:10 | XMS_ITS | Encounter Summary ---
Author Organization [facility] Address [address] [facility] [place] [address] Phone Care Team Providers Care Haulpak Driver Name Role Phone Jose Alfredo Burgos MD Primary Care Provider [phone] Latoya Conroy APRN, RELAY ENGINEER Unavailable Michael Ibarra MD Unavailable [phone] Encounter Details Date Type Department Care Team (Late st Contact Info) Description 09/07/2023 [facility] [address] [place] [address] Madi Tabor, [facility] [address] [place] [address] Encounter for pre-employment examination Social [...] 0.12 <8.01 IU/mL 09/09/2023 10:31 AM CDT [facility] TB ANTIGEN 1 0.01 <0.35 IU/mL 09/09/2023 10:31 AM CDT [facility] TB ANTIGEN 2 0.01 <0.35 IU/mL 09/09/2023 10:31 AM CDT [facility] MITOGEN CONTROL 9.88 >0.49 IU/mL 09/09/19 10:31 AM CDT [facility] INTEPRETATION TB NEGATIVE NEGATIVE, NEGATIVE (TB antigen response less than 25% of internal negative control value) 09/09/2023 10:31 AM CDT [facility] Comment:No immune response t o Mycobacterium tuberculosis antigens was noted. M. tuberculosis infection unlikely. Blood No Phlebotomy Charged / Unknown 09/07/2023 10:05 AM CDT 09/07/2023 3:10 PM CDT Narrative [facility] - 09/09/2023 10:31 AM CDT A POSITIVE [...] otherwise immunocompromised individuals. https://www.cdc.gov/tb/publications/guidelines/testing.htm us Madi Tabor [facility] IMMUNOLOGY ORDERABLES Final Result [facility] [address] [place] [address], documented in this encounter Visit Diagnoses Diagnosis Encounter for pre-employment examination Health examination of defined subpopulation documented in this encounter Care Teams Haulpak Driver Relationship Specialty Start Date End Date Jose Alfredo Burgos MD [address] [place] [address] [place] [address] PCP - General Family Medicine 09/16/23 Latoya Conroy APRN, RIC [address] [place] [address] Nurse Practitioner Advanced Practice Nurse 12/22/23 Michael Ibarra MD 2 [facility] [address] [address] Consulting Physician General Surgery 06/07/24 documented as of this encounter
--- OUTSIDE RECORDS SUMMARY | 2024-10-18 12:10 | XMS_ITS | Encounter Summary ---
Author Organization [facility] Address [address] [facility] [place] [address] Phone Care Team Providers Care E Merchant Name Role Phone Jose Alfredo Burgos MD Primary Care Provider [phone] Latoya Conroy APRN, SENIOR DB2 SYSTEMS PROGRAMMER Unavailable Michael Ibarra MD Unavailable [phone] Reason for Visit * Reason Comments Medication Refill Encounter Details Date Type Department Care Team (Late st Contact Info) Description 08/04/2024 Refill [facility] [place] [address] [place] [address] Latoya Conroy APRN, SENIOR DB2 SYSTEMS PROGRAMMER [address] [place] [address] Medication Refill Social History Tobacco Use Types [...] AM CDT Medication refilled and signed [facility] medication standing order for pediatric and adult patients. documented in this encounter Plan of Treatment Not on file documented as of this encounter Visit Diagnoses Diagnosis Pain of upper abdomen Abdominal pain, other specified site documented in this encounter Care Teams E Merchant Relationship Specialty Start Date End Date Jose Alfredo Burgos MD [address] [place] [address] PCP - General Family Medicine 09/16/23 Latoya Conroy APRN, SENIOR DB2 SYSTEMS PROGRAMMER [address] [place] [address] Nurse Practitioner Advanced Practice Nurse 12/22/23 Michael Ibarra MD 2 [facility] [address] [address] Consulting Physician General Surgery 06/07/24 documented as of this encounter
--- OUTSIDE RECORDS SUMMARY | 2024-10-18 12:10 | XMS_ITS | Encounter Summary ---
Author Organization [facility] Address [address] [place] [address] Phone Care Team Providers Care Scaleman Name Role Phone Jose Alfredo Burgos MD Primary Care Provider [phone] Latoya Conroy APRN, CUSTOMS COMPLIANCE MANAGER Unavailable Michael Ibarra MD Unavailable [phone] Reason for Visit * Reason Comments Medication Refill Encounter Details Date Type Department Care Team (Late st Contact Info) Description 04/13/2024 Refill [facility] - [place] [address] [place] [address] Latoya Conroy APRN, CUSTOMS COMPLIANCE MANAGER [address] [place] [address] Medication Refill Social History Tobacco Use Types [...] Tete Jean RN - 04/13/2024 8:08 AM COMMODITIES REQUIREMENTS ANALYST Medication refilled and signed per [facility] chronic medication standing order for pediatric and adult patients. ODITIES REQUIREMENTS ANALYST documented in this encounter Plan of Treatment Not on file documented as of this encounter Visit Diagnoses Diagnosis Pain of upper abdomen Abdominal pain, other specified site documented in this encounter Care Teams Scaleman Relationship Specialty Start Date End Date Jose Alfredo Burgos MD [address] [place] [address] PCP - General Family Medicine 09/16/23 Latoya Conroy APRN, CUSTOMS COMPLIANCE MANAGER [address] [facility] [place] [address] Nurse Practitioner Advanced Practice Nurse 12/22/23 Michael Ibarra MD 2 [address] [address] Consulting Physician General Surgery 06/07/24 documented as of this encounter
--- NOTE | 2024-10-18 13:06 | ED_ITS ---
HPI - Dental/Oral General Chief complaint: Dental/Oral Stated complaint: dental pain Time Seen by Provider: 10/18/24 11:53 Source: patient Mode of arrival: ambulatory Limitations: no limitations History of Present Illness HPI Narrative: This is a 39 year old female that presents to the ER for toothache. Reports chronic dental pain, she is unable to get into a dentist for several months. She recently finished a course a penicillin a couple weeks ago with little relief. MD Complaint: tooth pain Location: Tooth # Related Data Allergies Allergy/AdvReac Type Severity Reaction Status Date / Time No Known Drug Allergies Allergy NA Verified 10/18/24 10:22 Review of Systems Review of Systems: All systems reviewed & are unremarkable except as noted in HPI and below PMFSH Past Medical History Medical History (Updated 10/18/24 @ 13:08 by Marii Warner PA-C) No active medical problems Social History Social History (Updated 06/21/24 @ 14:05 by Marii Warner PA-C) Smoking status: Current every day smoker Exam Narrative: GENERAL: Well-appearing, well-nourished, and in no acute distress. HEAD: Normocephalic, atraumatic. EYES: EOMI. ENT: Nares clear, no rhinorrhea or epistaxis. Mucous membranes moist. Oropharynx without tonsillar hypertrophy exudate or other lesions. Poor dentition, no swelling or fluctuance to suggest abscess NECK: Supple. No adenopathy or masses. CHEST: No respiratory distress. HEART: Regular rate EXTREMITIES: Normal range of motion. No edema. SKIN: Warm, dry, no rash. NEURO: No focal deficits. Alert and oriented x3. PSYCH: Normal mood and affect Course Vital Signs Vital signs: Vital Signs Temperature 97.5 F L 10/18/24 10:20 Pulse Rate 97 10/18/24 10:20 Respiratory Rate 16 10/18/24 10:20 Blood Pressure 133/88 10/18/24 10:20 Pulse Oximetry 99 10/18/24 10:20 Temperature 97.5 F L 10/18/24 10:20 Pulse Rate 97 10/18/24 10:20 Respiratory Rate 16 10/18/24 10:20 Blood Pressure 133/88 10/18/24 10:20 Pulse Oximetry 99 10/18/24 10:20 MDM - Dental/Oral MDM Narrative Medical decision making narrative: Patient presents to the emergency department for toothache. Reports chronic dental pain, unable to get in to see a dentist for several months. She is afebrile and nontoxic appearing. No evidence for abscess on exam. Will be started on Augmentin and instructed on the importance of seeing a dentist. She was given warnings to return to the ER Differential Diagnosis Differential diagnosis: Likely dental caries, toothache, dental abscess and fracture of tooth Critical Care Time Critical Care Time Critical Care Time: No Discharge Plan Discharge Clinical Impression: Toothache Patient Disposition: Home Condition: Stable Instructions: Antibiotic Form, Toothache (ED) Additional Instructions: Return to the Emergency Department if you experience fever >101, increasing swelling and redness of your tooth, difficulty swallowing, trouble breathing, or any other symptoms that are concerning to you Take antibiotic as prescribed. Tylenol or Ibuprofen as needed for pain. Prescribed pain medication as needed Follow up with your dentist Patient Language: Kinyarwanda Prescriptions: New amoxicillin-pot clavulanate 875-125 mg tablet 1 tablet PO Q12H 7 Days Qty: 14 0RF hydrocodone-acetaminophen 5-325 mg tablet 1 tablet PO Q6H PRN (Reason: pain) Qty: 14 0RF No Action hydrocodone-acetaminophen 5-325 mg tablet 1 tablet PO Q12H PRN (Reason: pain) Qty: 14 0RF clindamycin HCl 300 mg capsule 300 mg PO Q6H 10 Days Qty: 40 0RF hydrocodone-acetaminophen 5-325 mg tablet 1 tablet PO Q6H PRN (Reason: pain) Qty: 10 0RF Follow-up/Referrals: UNKNOWN,DOCTOR [Primary Care Provider] -
[2024-10-18 13:31] VITALS: BP 137/97; PULSE 81; RESP 16; TEMP 36.9; O2SAT 97
== END 2024-10-18 13:33 | disposition home or self-care (01) ==
PROVIDERS: Emergency Provider Physician Assistant
DX: K08.89 Other specified disorders of teeth and supporting structures (principal); F17.200 Nicotine dependence, unspecified, uncomplicated
CPT/HCPCS: 99283

== ENCOUNTER 2024-10-23 14:49 | Emergency (ER) | payer OTHER, SELFPAY ==
[2024-10-23 14:52] VITALS: BP 125/85; PULSE 110; RESP 16; TEMP 36.8; O2SAT 100
--- OUTSIDE RECORDS SUMMARY | 2024-10-23 14:52 | XMS_ITS | Encounter Summary ---
Author Organization [facility] Address [address] [facility] [place] [address] Phone Care Team Providers Care Skiving Machine Operator Name Role Phone Jose Alrfedo Burgos MD Primary Care Provider [phone] Latoya Conroy APRN, LINE ANALYST Unavailable Michael Ibarra MD Unavailable [phone] Encounter Details Date Type Department Care Team (Late st Contact Info) Description 09/07/2023 Lab Requisition [facility] Laboratory Services 1 [place] [address] Madi Tabor, [facility] [address] [place] [address] Encounter for pre-employment examination Social [...] 0.12 <8.01 IU/mL 09/09/2023 10:31 AM CDT [facility] TB ANTIGEN 1 0.01 <0.35 IU/mL 09/09/2023 10:31 AM CDT [facility] TB ANTIGEN 2 0.01 <0.35 IU/mL 09/09/2023 10:31 AM CDT [facility] MITOGEN CONTROL 9.88 >0.49 IU/mL 09/09/19 10:31 AM CDT [facility] INTEPRETATION TB NEGATIVE NEGATIVE, NEGATIVE (TB antigen response less than 25% of internal negative control value) 09/09/2023 10:31 AM CDT [facility] Comment:No immune response t o Mycobacterium tuberculosis antigens was noted. M. tuberculosis infection unlikely. Blood No Phlebotomy Charged / Unknown 09/07/2023 10:05 AM CDT 09/07/2023 3:10 PM CDT Narrative [facility] - 09/09/2023 10:31 AM CDT A [...] otherwise immunocompromised individuals. https://www.cdc.gov/tb/publications/guidelines/testing.htm us Madi Tabor [facility] IMMUNOLOGY ORDERABLES Final Result [facility] [address] [place] [address], documented in this encounter Visit Diagnoses Diagnosis Encounter for pre-employment examination Health examination of defined subpopulation documented in this encounter Care Teams Skiving Machine Operator Relationship Specialty Start Date End Date Jose Alfredo Burgos MD [address] [place] [address] [place] [address] PCP - General Family Medicine 09/16/23 Latoya Conroy APRN, RIC [address] [place] [address] Nurse Practitioner Advanced Practice Nurse 12/22/23 Michael Ibarra MD 2 [facility] [address] [address] Consulting Physician General Surgery 06/07/24 documented as of this encounter
--- OUTSIDE RECORDS SUMMARY | 2024-10-23 14:52 | XMS_ITS | Clinical Summary ---
Author Organization [facility] Address [address] [place] [address] Phone Care Team Providers Care Journeyman Pipe Fitter Name Role Phone Jose Alfredo Burgos MD Primary Care Provider [phone] Latoya Conroy APRN, PHONOGRAPH MECHANIC Unavailable Michael Ibarra MD Unavailable [phone] Medications HYDROcodone-acet aminophen (NORCO) 5-325 MG Tablet [...] Department Care Team Description 08/20/2024 Transcribe Orders [facility] Central Scheduling [address] [place] [address] Michael Ibarra MD Nausea vomiting and diarrhea (Primary Dx) 08/08/2024 8:01 PM CDT - 08/09/2024 1:02 AM CDT [facility] 1 [place] [address] Franck Conner MD Generalized abdominal pain Discharge Disposition: Discharged to home or Selfcare 08/08/2024 Travel 08/08/2024 Nurse Triage [facility] Gastroenterology [facility] [address] [place] [address] Michael Ibarra MD Rectal Bleeding 08/04/2024 Refill [facility] Gastroenterology [facility] [address] [place] [address] Latoya Conroy APRN, PHONOGRAPH MECHANIC Medication Refill from Last 3 Months [...] 2061 TdaP Immunization Completed 07/02/2015, 04/30/2013, 09/21/2010 Human Papillomavirus (HPV) Immunization Aged Out No longer eligible b ased on patient's age to complete this topic Meningococcal Immunization (ACWY) Aged Out No longer [...] loops. No obvious wall thickening. Normal appendix. Xyjm-va-rqxcpnwd amount of stool volume is seen scattered [...] Prem Monge M.D. MF: LAKIA Report ID: [id number] Reading Location: [id number] Procedure Note Prem Monge, DO - 08/08/2024 [...] loops. No obvious wall thickening. Normal appendix. Svkv-rp-vftvyejq amount of stool volume is seen scattered [...] Prem Monge M.D. MF: LAKIA Report ID: [id number] Reading Location: [place] [address] IMPRESSION: 1. No acute intra-abdominal/pelvic abnormality. 2. Additional findings; as detailed. Franck Conner MD IMG CT ORDERABLES Final R esult * POCT Urine HCG () (08/08/2024 5:32 PM CDT) [facility] POC URINE Negative [facility] POC URINE CONTROL Former Hand Pass [facility] Urine 08/08/2024 5:32 PM CDT Clovis Paz MD POINT OF CARE TESTING (MANUAL) F inal Result [facility] [address] [place] [address] * (ABNORMAL) Urinalysis w/ Reflex (08/08/2024 5:13 PM CDT) Pathologist [facility] SPECIFIC GRAVITY 1.015 1.003 - 1.030 08/08/2024 5:52 PM CDT [facility] URINE PH 6.5 5.0 - 9.0 08/08/2024 5:52 PM CDT [facility] WBC ESTERASE Negative Negative 08/08/2024 5:52 PM CDT [facility] NITRITE Negative Negative 08/08/2024 5:52 PM CDT [facility] PROTEIN, RANDOM URINE 30 mg/dL(A) Negative 08/08/2024 5:52 PM CDT [facility] URINE GLUCOSE, QUAL Negative Negative 08/08/2024 5:52 PM CDT [facility] URINE KETONES Negative Negative 08/08/2024 5:52 PM CDT [facility] UROBILINOGEN Normal Normal mg/dL 08/08/2024 5:52 PM CDT [facility] URINE BLOOD Negative Negative javier/ul 08/08/2024 5:52 PM CDT [facility] URINALYSIS COLOR Yellow 08/09/19 5:52 PM CDT [facility] URINALYSIS CLARITY Clear 08/08/2024 5:52 PM CDT [facility] WBC (Urine) 0-5 Negative, 0-5 /hpf 08/08/2024 5:52 PM CDT [facility] URINE RBC'S Negative Negative, 0-2 /hpf 08/08/2024 5:52 PM CDT [facility] EPITHELIAL CELLS Moderate amount /lpf 08/08/2024 5:52 PM CDT [facility] BACTERIA, URINE Few(A) Negative /hpf 08/08/2024 5:52 PM CDT [facility] Urine URINE SPECIMEN / Unknown Non-Phlebotomy Collection / Unknown 08/08/2024 5:13 PM CDT 08/08/2024 5:34 PM CDT us Clovis Paz MD URINE ORDERABLES Final Result [facility] [address] [place] [address] * (ABNORMAL) Urine Drug Screen (08/08/2024 5:13 PM CDT) UR AMPHETAMINE NON DETECTED NON DETECTED 08/09/2024 12:01 AM CDT [facility] UR BENZODIAZEPINES NON DETECTED NON DETECTED 08/09/2024 12:01 AM CDT [facility] UR COCAINE METABOLITE NON DETECTED NON DETECTED 08/09/2024 12:01 AM CDT [facility] UR OPIATES NON DETECTED NON DETECTED 08/09/2024 12:01 AM CDT [facility] UR PHENCYCLIDINE NON DETECTED NON DETECTED 08/09/2024 12:01 AM CDT [facility] UR CANNABINOID DETECTED(A) NON DETECTED 08/09/2024 12:01 AM CDT [facility] UR BARBITURATE NON DETECTED NON DETECTED 08/09/2024 12:01 AM CDT [facility] UR FENTANYL NON DETECTED NON DETECTED 08/09/2024 12:01 AM CDT [facility] Urine URINE SPECIMEN / Unknown Non-Phlebotomy Collection / Unknown 08/08/2024 5:13 PM CDT 08/08/2024 5:34 PM CDT us Franck Conner MD URINE ORDERABLES Final Re sult [facility] [address] [place] [address] * (ABNORMAL) CBC with Auto Differential (08/08/2024 4:53 PM CDT) WBC 8.60 4.00 - 12.00 10(3)/mcL 08/08/2024 5:57 PM CDT [facility] RBC 3.21(L) 3.80 - 5.30 10(6)/mcL 08/08/2024 5:57 PM CDT [facility] HEMOGLOBIN (HGB) 11.0(L) 12.0 - 15.8 g/dL 08/08/2024 5:57 PM CDT [facility] HEMATOCRIT (HCT) 35.4(L) 36.0 - 47.0 % 08/08/2024 5:57 PM CDT [facility] MCV 110.3(H) 82.0 - 96.0 fL 08/08/2024 5:57 PM CDT [facility] MCH 34.3(H) 26.0 - 34.0 pg 08/08/2024 5:57 PM CDT [facility] MCHC 31.1 31.0 - 36.0 g/dL 08/08/2024 5:57 PM CDT [facility] PLATELET COUNT 360 140 - 440 10(3)/[facility] 08/08/2024 5:57 PM CDT [facility] RDW 12.8 11.8 - 15.5 % 08/08/2024 5:57 PM CDT [facility] MPV 9.6(L) 9.7 - 12.4 fL 08/08/2024 5:57 PM CDT [facility] NEUTROPHILS 49.4 47.0 - 73.0 % 08/08/2024 5:57 PM CDT [facility] LYMPHOCYTES 36.4 18.0 - 42.0 % 08/08/2024 5:57 PM CDT [facility] MONOCYTES 7.6 4.0 - 12.0 % 08/08/2024 5:57 PM CDT [facility] EOSINOPHILS 6.0(H) 0.0 - 5.0 % 08/08/2024 5:57 PM CDT [facility] BASOPHILS 0.6 0.0 - 1.0 % 08/08/2024 5:57 PM CDT [facility] ABSOLUTE NEUTROPHILS 4.25 1.60 - 7.70 10(3)/mcL 08/08/2024 5:57 PM CDT [facility] ABSOLUTE LYMPHOCYTES 3.13 1.30 - 3.20 10(3)/mcL 08/08/2024 5:57 PM CDT [facility] ABSOLUTE MONOCYTES 0.65 0.20 - 1.00 10(3)/mcL 08/08/2024 5:57 PM CDT [facility] ABSOLUTE EOSINOPHIL 0.52(H) 0.00 - 0.40 10(3)/mcL 08/08/2024 5:57 PM CDT [facility] ABSOLUTE BASOPHILS 0.05 0.00 - 0.10 10(3)/mcL 08/08/2024 5:57 PM CDT [facility] NRBC PER 100 WBC 0 08/09/19 5:57 PM CDT [facility] RESULTS ARE CONSISTENT WITH PERIPHERAL SMEAR REVIEW Yes 08/08/2024 5:57 PM CDT [facility] RBC MORPHOLOGY CONSISTENT WITH INDICES Yes 08/08/2024 5:57 PM CDT [facility] Blood Venipuncture / Unknown 08/08/2024 4:53 PM CDT 08/08/2024 5:17 PM CDT us Clovis Paz MD HEMATOLOGY ORDERABLES Final Resu lt Performing Organization Address City/[facility]/ZIP Co de Phone Number [facility] [address] [place] [address] * Lipase (08/08/2024 4:53 PM CDT) LIPASE 28 8 - 78 U/L 08/08/2024 5:40 PM CDT [facility] Blood Venipuncture / Unknown 08/08/2024 4:53 PM CDT 08/08/2024 5:17 PM CDT Clovis Paz MD CHEMISTRY ORDERABLES Final Resul t Performing Organization Address City/[facility]/ZIP Co de Phone Number [facility] [address] [place] [address] * CMP (08/08/2024 4:53 PM CDT) SODIUM 139 136 - 145 mmol/L 08/08/2024 5:40 PM CDT [facility] POTASSIUM 4.1 3.5 - 5.1 mmol/L 08/08/2024 5:40 PM CDT [facility] CHLORIDE 106 98 - 107 mmol/L 08/08/2024 5:40 PM CDT [facility] CO2, VENOUS 24 22 - 30 mmol/L 08/08/2024 5:40 PM CDT [facility] ANION GAP 13.1 <18.0 mmol/L 08/08/2024 5:40 PM CDT [facility] GLUCOSE 77 70 - 99 mg/dL 08/08/2024 5:40 PM CDT [facility] BUN 16 5 - 18 mg/dL 08/08/2024 5:40 PM CDT [facility] CREATININE, BLOOD 0.91 0.60 - 1.00 mg/dL 08/08/2024 5:40 PM CDT [facility] BUN/CREATININE RATIO 18 12 - 20 ratio 08/08/2024 5:40 PM CDT [facility] TOTAL PROTEIN 7.0 6.0 - 8.0 g/dL 08/08/2024 5:40 PM CDT [facility] ALBUMIN 3.9 3.5 - 5.0 g/dL 08/08/2024 5:40 PM CDT [facility] A/G RATIO 1.3 1.0 - 2.2 08/08/2024 5:40 PM CDT [facility] CALCIUM 8.7 8.7 - 10.5 mg/dL 08/08/2024 5:40 PM CDT [facility] T BILI 0.3 0.2 - 1.2 mg/dL 08/08/2024 5:40 PM CDT [facility] SGOT (AST) 17 <43 U/L 08/08/2024 5:40 PM CDT [facility] SGPT (ALT) 13 <56 U/L 08/08/2024 5:40 PM CDT [facility] ALKALINE PHOSPHATASE 74 40 - 150 U/L 08/08/2024 5:40 PM CDT [facility] GFR, ESTIMATED >60 >=60 08/08/2024 5:40 PM CDT [facility] Comment: Creatinine Clearance is the preferred criteria for selecting drug dose adjustments in renally impaired patients. The GFR is provided as additional pertinent clinical information. GFR is reported in mL/min/1.73 sq m. Calculation based on the Chronic Kidney Disease Epidemiology Collaboration (CKD- EPI) equation refit without adjustment for race. GFR, EST. >60 >=60 025 5:40 PM CDT [facility] GFR, EST. NONAFRICAN >60 >=60 08/08/2024 5:40 PM CDT [facility] Blood Venipuncture / Unknown 08/08/2024 4:53 PM CDT 08/08/2024 5:17 PM CDT us Clovis Paz MD CHEMISTRY ORDERABLES Final Resul t [facility] [address] [place] [address] from Last 3 Months Insurance MEDICAID [id number] * Guarantor: [facility] JW Account Type Relation to Patient Date of Phone Billing Address Institutional Other [address] [place] [address] Care Teams Journeyman Pipe Fitter Relationship Specialty Start Date End Date Jose Alfredo Burgos MD [address] [facility] [place] [address] PCP - General Family Medicine 09/16/23 Latoya Conroy APRN, PHONOGRAPH MECHANIC [address] [place] [address] Nurse Practitioner Advanced Practice Nurse 12/22/23 Michael Ibarra MD [address] [address] Consulting Physician General Surgery 06/07/24
--- OUTSIDE RECORDS SUMMARY | 2024-10-23 14:52 | XMS_ITS | Referral Summary ---
Author Organization [facility] Address [address] [place] [address] Care Team Providers Care Pediatric Clinical Dietician Name Role Phone Jose Alfredo Burgos MD Primary Care Provider [phone] Encounters Date Type Department Care Team Description 09/26/2024 9:05 AM CDT - 09/26/2024 10:59 AM CDT Emergency [facility] Emergency Department [address] [place] [address] Saba Montano MD Pain due to dental caries (Primary Dx); Joint swelling Discharge Disposition: Discharge to home or self care 08/11/2024 10:24 AM CDT - 08/11/2024 10:48 AM CDT Emergency [facility] Emergency Department [address] [place] [address] Dari Kevin MD Encounter for medication refill [...] on file Legal Sex Female 4:35 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 FT: FT Report ID: [id number] Reading Location: [id number] Procedure Note Shantell Valle MD - 09/26/2024 [...] Shantell Londono M.D. FT: FT Report ID: [id number] Reading Location: [id number] Saba Montano MD IMG XR PROCEDURES F inal Result from Last 3 Months Insurance [facility] Care Teams Pediatric Clinical Dietician Relationship Specialty Start Date End Date Jose Alfredo Burgos MD [address] [place] [address] DR HELMS [address] [place] [address] PCP - General Family Medicine 10/14/23
--- OUTSIDE RECORDS SUMMARY | 2024-10-23 14:52 | XMS_ITS ---
Author Organization [facility] Address [address] [place] [address] Phone Care Team Providers Care Rug Cleaner Hand Name Role Phone Jose Alfredo Burogs MD Primary Care Provider [phone] Latoya Conroy APRN, NUCLEAR ENGINEER Unavailable Michael Ibarra MD Unavailable [phone] [facility] Status:Enrolled (Active) Start date:06/20/2024 Enrollment date:06/20/2024 Related social drivers of health:Intimate Partner Violence, Social Connections, Alcohol Use, Tobacco Use, Financial Resource Strain,Depression, Stress, Physical Activity, Food Insecurity, Transportation Needs, Housing Stability, Utilities Continued Care and Services Coordination
--- OUTSIDE RECORDS SUMMARY | 2024-10-23 14:52 | XMS_ITS | Encounter Summary ---
Author Organization [facility] Address [address] [place] [address] Phone Care Team Providers Care Practical Nursing Teacher Name Role Phone Jose Alfredo Burgos MD Primary Care Provider [phone] Latoya Conroy APRN, CAMPAIGN COORDINATOR Unavailable Michael Ibarra MD Unavailable [phone] Reason for Visit * Reason Comments Medication Refill Encounter Details Date Type Department Care Team (Late st Contact Info) Description 04/13/2024 Refill [facility] - [place] [address] [place] [address] Latoya Conroy APRN, CAMPAIGN COORDINATOR [address] [place] [address] Medication Refill Social History Tobacco Use Types [...] Tete Jean RN - 04/13/2024 8:08 AM BRAILLE PROOFREADER Medication refilled and signed per [facility] chronic medication standing order for pediatric and adult patients. LLE PROOFREADER documented in this encounter Plan of Treatment Not on file documented as of this encounter Visit Diagnoses Diagnosis Pain of upper abdomen Abdominal pain, other specified site documented in this encounter Care Teams Practical Nursing Teacher Relationship Specialty Start Date End Date Jose Alfredo Burgos MD [address] [place] [address] PCP - General Family Medicine 09/16/23 Latoya Conroy APRN, CAMPAIGN COORDINATOR [address] [facility] [place] [address] Nurse Practitioner Advanced Practice Nurse 12/22/23 Michael Ibarra MD 2 [address] [address] Consulting Physician General Surgery 06/07/24 documented as of this encounter
--- OUTSIDE RECORDS SUMMARY | 2024-10-23 14:52 | XMS_ITS | Clinical Summary ---
Author Organization [facility] Address [address] [place] [address] Care Team Providers Care Sales Negotiator Name Role Phone Jose Alfredo Burgos MD Primary Care Provider [phone] Allergies No known active allergies Medications dextroamphetam [...] CDT - 09/26/2024 10:59 AM CDT Emergency [facility] Emergency Department [address] [place] [address] Saba Montano MD Pain due to dental caries (Primary Dx); Joint swelling Discharge Disposition: Discharge to home or self care 08/11/2024 10:24 AM CDT - 08/11/2024 10:48 AM CDT Emergency [facility] Emergency Department [address] [place] [address] Dari Kevin MD Encounter for medication refill [...] on file 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 FT: FT Report ID: [id number] Reading Location: [id number] Procedure Note Shantell Valle MD - 09/26/2024 [...] Shantell Londono M.D. FT: FT Report ID: [id number] Reading Location: [id number] Saba Montano MD IMG XR PROCEDURES F inal Result from Last 3 Months Insurance [facility] Care Teams Sales Negotiator Relationship Specialty Start Date End Date Jose Alfredo Burgos MD [address] [place] [address] [address] [place] [address] PCP - General Family Medicine 10/14/23
--- OUTSIDE RECORDS SUMMARY | 2024-10-23 14:52 | XMS_ITS | Encounter Summary ---
Author Organization [facility] Address [address] [place] [address] Phone Care Team Providers Care Furnace Repairer Helper Name Role Phone Jose Alfredo Burgos MD Primary Care Provider [phone] Latoya Conroy APRN, LOCK INSTALLER Unavailable Michael Ibarra MD Unavailable [phone] Reason for Visit * Reason Comments Medication Refill Encounter Details Date Type Department Care Team (Late st Contact Info) Description 08/04/2024 Refill [facility] - [place] [address] [place] [address] Latoya Conroy APRN, LOCK INSTALLER [address] [place] [address] Medication Refill Social History Tobacco Use Types [...] AM CDT Medication [facility] and [facility] [place] medication standing order for pediatric and adult patients. documented in this encounter Plan of Treatment Not on file documented as of this encounter Visit Diagnoses Diagnosis Pain of upper abdomen Abdominal pain, other specified site documented in this encounter Care Teams Furnace Repairer Helper Relationship Specialty Start Date End Date Jose Alfredo Burgos MD [address] [place] [address] PCP - General Family Medicine 09/16/23 Latoya Conroy APRN, LOCK INSTALLER [address] [place] [address] Nurse Practitioner Advanced Practice Nurse 12/22/23 Micahel Ibarra MD 2 [facility] VICKI [address] [address] Consulting Physician General Surgery 06/07/24 documented as of this encounter
--- OUTSIDE RECORDS SUMMARY | 2024-10-23 15:22 | XMS_ITS | Referral Summary ---
Author Organization [facility] Address [address] [place] [address] Care Team Providers Care Enrollment Management Manager Name Role Phone Jose Alfredo Burgos MD Primary Care Provider [phone] Encounters Date Type Department Care Team Description 09/26/2024 9:05 AM CDT - 09/26/2024 10:59 AM CDT Emergency [facility] Emergency Department [address] [place] [address] Saba Montano MD Pain due to dental caries (Primary Dx); Joint swelling Discharge Disposition: Discharge to home or self care 08/11/2024 10:24 AM CDT - 08/11/2024 10:48 AM CDT Emergency [facility] Emergency Department [address] [place] [address] Dari Kevin MD Encounter for medication refill [...] on file Legal Sex Female 4:35 PM PHOTOGRAMMETRIC TECH Gender Identity Not on file Sexual Orientation [...] Shantell Londono M.D. FT: FT Report ID: [id number] Reading Location: [id number] Procedure Note Shantell Valle MD - 09/26/2024 [...] Shantell Londono M.D. FT: FT Report ID: [id number] Reading Location: [id number] Saba Montano MD IMG XR PROCEDURES F inal Result from Last 3 Months Insurance [facility] Care Teams Enrollment Management Manager Relationship Specialty Start Date End Date Jose Alfredo Burgos MD [address] [place] [address] DR HELMS [address] [place] [address] PCP - General Family Medicine 10/14/23
--- OUTSIDE RECORDS SUMMARY | 2024-10-23 15:22 | XMS_ITS | Encounter Summary ---
Author Organization [facility] Address [address] [facility] [place] [address] Phone Care Team Providers Care Customer Service Teller Name Role Phone Jose Alfredo Burgos MD Primary Care Provider [phone] Latoya Conroy APRN, TEST CONSULTANT Unavailable Michael Ibarra MD Unavailable [phone] Encounter Details Date Type Department Care Team (Late st Contact Info) Description 09/07/2023 Lab Requisition [facility] Laboratory Services [address] [place] [address] Madi Tabor, [facility] [address] [place] [address] Encounter for pre-employment examination Social [...] 0.12 <8.01 IU/mL 09/09/2023 10:31 AM CDT [facility] TB ANTIGEN 1 0.01 <0.35 IU/mL 09/09/2023 10:31 AM CDT [facility] TB ANTIGEN 2 0.01 <0.35 IU/mL 09/09/2023 10:31 AM CDT [facility] MITOGEN CONTROL 9.88 >0.49 IU/mL 09/09/19 10:31 AM CDT [facility] INTEPRETATION TB NEGATIVE NEGATIVE, NEGATIVE (TB antigen response less than 25% of internal negative control value) 09/09/2023 10:31 AM CDT [facility] Comment:No immune response t o Mycobacterium tuberculosis antigens was noted. M. tuberculosis infection unlikely. Blood No Phlebotomy Charged / Unknown 09/07/2023 10:05 AM CDT 09/07/2023 3:10 PM CDT Narrative [facility] - 09/09/2023 10:31 AM CDT A [...] otherwise immunocompromised individuals. https://www.cdc.gov/tb/publications/guidelines/testing.htm us Madi Tabor [facility] IMMUNOLOGY ORDERABLES Final Result [facility] [address] [place] [address], documented in this encounter Visit Diagnoses Diagnosis Encounter for pre-employment examination Health examination of defined subpopulation documented in this encounter Care Teams Customer Service Teller Relationship Specialty Start Date End Date Jose Alfredo Burgos MD [address] [place] [address] [place] [address] PCP - General Family Medicine 09/16/23 Latoya Conroy APRN, RIC [address] [place] [address] Nurse Practitioner Advanced Practice Nurse 12/22/23 Michael Ibarra MD 2 [facility] [address] [address] Consulting Physician General Surgery 06/07/24 documented as of this encounter
--- OUTSIDE RECORDS SUMMARY | 2024-10-23 15:22 | XMS_ITS | Clinical Summary ---
Author Organization [facility] Address [address] [place] [address] Phone Care Team Providers Care Deck Engine Operator Name Role Phone Jose Alfredo Burgos MD Primary Care Provider [phone] Latoya Conroy APRN, [facility] Unavailable Michael Ibarra MD Unavailable [phone] Medications HYDROcodone-acet aminophen (NORCO) 5-325 MG Tablet [...] Care Team Description 08/20/2024 Transcribe Orders [facility] Central Scheduling [address] [place] [address] Michael Ibarra MD Nausea vomiting and diarrhea (Primary Dx) 08/08/2024 8:01 PM CDT - 08/09/2024 1:02 AM CDT Emergency [facility] Emergency [address] [place] [address] Franck Conner MD Generalized abdominal pain Discharge Disposition: Discharged to home or Selfcare 08/08/2024 Travel 08/08/2024 Nurse Triage [facility] [address] [place] [address] Michael Ibarra MD Rectal Bleeding 08/04/2024 Refill [facility] [address] [place] [address] Latoya Conroy APRN, ATTIC BLOWER Medication Refill from Last 3 Months Family [...] loops. No obvious wall thickening. Normal appendix. Mqeu-zx-tndilprw amount of stool volume is seen scattered [...] Prem Monge M.D. MF: LAKIA Report ID: [id number] Reading Location: [id number] Procedure Note Prem Monge, DO - 08/08/2024 [...] loops. No obvious wall thickening. Normal appendix. Xudt-ua-dwdczvvh amount of stool volume is seen scattered [...] Prem Monge M.D. MF: LAKIA Report ID: [id number] Reading Location: [place] [address] IMPRESSION: 1. No acute intra-abdominal/pelvic abnormality. 2. Additional findings; as detailed. Franck Conner MD IMG CT ORDERABLES Final R esult * POCT Urine HCG () (08/08/2024 5:32 PM CDT) [facility] POC URINE Negative [facility] POC URINE CONTROL Catering Staff Member Pass [facility] Urine 08/08/2024 5:32 PM CDT Clovis Paz MD POINT OF CARE TESTING (MANUAL) F inal Result [facility] [address] [place] [address] * (ABNORMAL) Urinalysis w/ Reflex (08/08/2024 5:13 PM CDT) Pathologist [facility] SPECIFIC GRAVITY 1.015 1.003 - 1.030 08/08/2024 5:52 PM CDT [facility] URINE PH 6.5 5.0 - 9.0 08/08/2024 5:52 PM CDT [facility] WBC ESTERASE Negative Negative 08/08/2024 5:52 PM CDT [facility] NITRITE Negative Negative 08/08/2024 5:52 PM CDT [facility] PROTEIN, RANDOM URINE 30 mg/dL(A) Negative 08/08/2024 5:52 PM CDT [facility] URINE GLUCOSE, QUAL Negative Negative 08/08/2024 5:52 PM CDT [facility] URINE KETONES Negative Negative 08/08/2024 5:52 PM CDT [facility] UROBILINOGEN Normal Normal mg/dL 08/08/2024 5:52 PM CDT [facility] URINE BLOOD Negative Negative javier/ul 08/08/2024 5:52 PM CDT [facility] URINALYSIS COLOR Yellow 08/09/19 5:52 PM CDT [facility] URINALYSIS CLARITY Clear 08/08/2024 5:52 PM CDT [facility] WBC (Urine) 0-5 Negative, 0-5 /hpf 08/08/2024 5:52 PM CDT [facility] URINE RBC'S Negative Negative, 0-2 /hpf 08/08/2024 5:52 PM CDT [facility] EPITHELIAL CELLS Moderate amount /lpf 08/08/2024 5:52 PM CDT [facility] BACTERIA, URINE Few(A) Negative /hpf 08/08/2024 5:52 PM CDT [facility] Urine URINE SPECIMEN / Unknown Non-Phlebotomy Collection / Unknown 08/08/2024 5:13 PM CDT 08/08/2024 5:34 PM CDT us Clovis Paz MD URINE ORDERABLES Final Result [facility] [address] [place] [address] * (ABNORMAL) Urine Drug Screen (08/08/2024 5:13 PM CDT) UR AMPHETAMINE NON DETECTED NON DETECTED 08/09/2024 12:01 AM CDT [facility] UR BENZODIAZEPINES NON DETECTED NON DETECTED 08/09/2024 12:01 AM CDT [facility] UR COCAINE METABOLITE NON DETECTED NON DETECTED 08/09/2024 12:01 AM CDT [facility] UR OPIATES NON DETECTED NON DETECTED 08/09/2024 12:01 AM CDT [facility] UR PHENCYCLIDINE NON DETECTED NON DETECTED 08/09/2024 12:01 AM CDT [facility] UR CANNABINOID DETECTED(A) NON DETECTED 08/09/2024 12:01 AM CDT [facility] UR BARBITURATE NON DETECTED NON DETECTED 08/09/2024 12:01 AM CDT [facility] UR FENTANYL NON DETECTED NON DETECTED 08/09/2024 12:01 AM CDT [facility] Urine URINE SPECIMEN / Unknown Non-Phlebotomy Collection / Unknown 08/08/2024 5:13 PM CDT 08/08/2024 5:34 PM CDT us Franck Conner MD URINE ORDERABLES Final Re sult [facility] [address] [place] [address] * (ABNORMAL) CBC with Auto Differential (08/08/2024 4:53 PM CDT) WBC 8.60 4.00 - 12.00 10(3)/mcL 08/08/2024 5:57 PM CDT [facility] RBC 3.21(L) 3.80 - 5.30 10(6)/mcL 08/08/2024 5:57 PM CDT [facility] HEMOGLOBIN (HGB) 11.0(L) 12.0 - 15.8 g/dL 08/08/2024 5:57 PM CDT [facility] HEMATOCRIT (HCT) 35.4(L) 36.0 - 47.0 % 08/08/2024 5:57 PM CDT [facility] MCV 110.3(H) 82.0 - 96.0 fL 08/08/2024 5:57 PM CDT [facility] MCH 34.3(H) 26.0 - 34.0 pg 08/08/2024 5:57 PM CDT [facility] MCHC 31.1 31.0 - 36.0 g/dL 08/08/2024 5:57 PM CDT [facility] PLATELET COUNT 360 140 - 440 10(3)/[facility] 08/08/2024 5:57 PM CDT [facility] RDW 12.8 11.8 - 15.5 % 08/08/2024 5:57 PM CDT [facility] MPV 9.6(L) 9.7 - 12.4 fL 08/08/2024 5:57 PM CDT [facility] NEUTROPHILS 49.4 47.0 - 73.0 % 08/08/2024 5:57 PM CDT [facility] LYMPHOCYTES 36.4 18.0 - 42.0 % 08/08/2024 5:57 PM CDT [facility] MONOCYTES 7.6 4.0 - 12.0 % 08/08/2024 5:57 PM CDT [facility] EOSINOPHILS 6.0(H) 0.0 - 5.0 % 08/08/2024 5:57 PM CDT [facility] BASOPHILS 0.6 0.0 - 1.0 % 08/08/2024 5:57 PM CDT [facility] ABSOLUTE NEUTROPHILS 4.25 1.60 - 7.70 10(3)/mcL 08/08/2024 5:57 PM CDT [facility] ABSOLUTE LYMPHOCYTES 3.13 1.30 - 3.20 10(3)/mcL 08/08/2024 5:57 PM CDT [facility] ABSOLUTE MONOCYTES 0.65 0.20 - 1.00 10(3)/mcL 08/08/2024 5:57 PM CDT [facility] ABSOLUTE EOSINOPHIL 0.52(H) 0.00 - 0.40 10(3)/mcL 08/08/2024 5:57 PM CDT [facility] ABSOLUTE BASOPHILS 0.05 0.00 - 0.10 10(3)/mcL 08/08/2024 5:57 PM CDT [facility] NRBC PER 100 WBC 0 08/09/19 5:57 PM CDT [facility] RESULTS ARE CONSISTENT WITH PERIPHERAL SMEAR REVIEW Yes 08/08/2024 5:57 PM CDT [facility] RBC MORPHOLOGY CONSISTENT WITH INDICES Yes 08/08/2024 5:57 PM CDT [facility] Blood Venipuncture / Unknown 08/08/2024 4:53 PM CDT 08/08/2024 5:17 PM CDT us Clovsi Paz MD HEMATOLOGY ORDERABLES Final Resu lt Performing Organization Address City/[facility]/ZIP Co de Phone Number [facility] [address] [place] [address] * Lipase (08/08/2024 4:53 PM CDT) LIPASE 28 8 - 78 U/L 08/08/2024 5:40 PM CDT [facility] Blood Venipuncture / Unknown 08/08/2024 4:53 PM CDT 08/08/2024 5:17 PM CDT Clovis Paz MD CHEMISTRY ORDERABLES Final Resul t Performing Organization Address City/[facility]/ZIP Co de Phone Number [facility] [address] [place] [address] * CMP (08/08/2024 4:53 PM CDT) SODIUM 139 136 - 145 mmol/L 08/08/2024 5:40 PM CDT [facility] POTASSIUM 4.1 3.5 - 5.1 mmol/L 08/08/2024 5:40 PM CDT [facility] CHLORIDE 106 98 - 107 mmol/L 08/08/2024 5:40 PM CDT [facility] CO2, VENOUS 24 22 - 30 mmol/L 08/08/2024 5:40 PM CDT [facility] ANION GAP 13.1 <18.0 mmol/L 08/08/2024 5:40 PM CDT [facility] GLUCOSE 77 70 - 99 mg/dL 08/08/2024 5:40 PM CDT [facility] BUN 16 5 - 18 mg/dL 08/08/2024 5:40 PM CDT [facility] CREATININE, BLOOD 0.91 0.60 - 1.00 mg/dL 08/08/2024 5:40 PM CDT [facility] BUN/CREATININE RATIO 18 12 - 20 ratio 08/08/2024 5:40 PM CDT [facility] TOTAL PROTEIN 7.0 6.0 - 8.0 g/dL 08/08/2024 5:40 PM CDT [facility] ALBUMIN 3.9 3.5 - 5.0 g/dL 08/08/2024 5:40 PM CDT [facility] A/G RATIO 1.3 1.0 - 2.2 08/08/2024 5:40 PM CDT [facility] CALCIUM 8.7 8.7 - 10.5 mg/dL 08/08/2024 5:40 PM CDT [facility] T BILI 0.3 0.2 - 1.2 mg/dL 08/08/2024 5:40 PM CDT [facility] SGOT (AST) 17 <43 U/L 08/08/2024 5:40 PM CDT [facility] SGPT (ALT) 13 <56 U/L 08/08/2024 5:40 PM CDT [facility] ALKALINE PHOSPHATASE 74 40 - 150 U/L 08/08/2024 5:40 PM CDT [facility] GFR, ESTIMATED >60 >=60 08/08/2024 5:40 PM CDT [facility] Comment: Creatinine Clearance is the preferred criteria for selecting drug dose adjustments in renally impaired patients. The GFR is provided as additional pertinent clinical information. GFR is reported in mL/min/1.73 sq m. Calculation based on the Chronic Kidney Disease Epidemiology Collaboration (CKD- EPI) equation refit without adjustment for race. GFR, EST. >60 >=60 025 5:40 PM CDT [facility] GFR, EST. NONAFRICAN >60 >=60 08/08/2024 5:40 PM CDT [facility] Blood Venipuncture / Unknown 08/08/2024 4:53 PM CDT 08/08/2024 5:17 PM CDT us Clovis Paz MD CHEMISTRY ORDERABLES Final Resul t [facility] [address] [place] [address] from Last 3 Months Insurance MEDICAID [place] * Guarantor: [facility] Account Type Relation to Patient Date of Phone Billing Address Institutional Other [address] [place] [address] Care Teams Deck Engine Operator Relationship Specialty Start Date End Date Jose Alfredo Burgos MD [address] [facility] [place] [address] PCP - General Family Medicine 09/16/23 Latoya Conroy APRN, ATTIC BLOWER [address] [place] [address] Nurse Practitioner Advanced Practice Nurse 12/22/23 Michael Ibarra MD [address] [address] Consulting Physician General Surgery 06/07/24
--- OUTSIDE RECORDS SUMMARY | 2024-10-23 15:22 | XMS_ITS | Encounter Summary ---
Author Organization [facility] Address [address] [place] [address] Phone Care Team Providers Care Correctional Therapy Teacher Name Role Phone Jose Alfredo Burgos MD Primary Care Provider [phone] Latoya Conroy APRN, [facility] Unavailable Michael Ibarra MD Unavailable [phone] Reason for Visit * Reason Comments Medication Refill Encounter Details Date Type Department Care Team (Late st Contact Info) Description 04/13/2024 Refill [facility] - [place] [address] [place] [address] Latoya Conroy APRN, [facility] [address] [place] [address] Medication Refill Social History Tobacco Use Types [...] Tete Jean RN - 04/13/2024 8:08 AM PRINCIPAL MILITARY ANALYST Medication refilled and signed per [facility] chronic medication standing order for pediatric and adult patients. CIPAL MILITARY ANALYST documented in this encounter Plan of Treatment Not on file documented as of this encounter Visit Diagnoses Diagnosis Pain of upper abdomen Abdominal pain, other specified site documented in this encounter Care Teams Correctional Therapy Teacher Relationship Specialty Start Date End Date Jose Alfredo Burgos MD [address] [place] [address] PCP - General Family Medicine 09/16/23 Latoya Conroy APRN, [facility] [address] [facility] [address] Nurse Practitioner Advanced Practice Nurse 12/22/23 Michael Ibarra MD [address] [address] Consulting Physician General Surgery 06/07/24 documented as of this encounter
--- OUTSIDE RECORDS SUMMARY | 2024-10-23 15:22 | XMS_ITS | Encounter Summary ---
Author Organization [facility] Address [address] [place] [address] Phone Care Team Providers Care Paranormal Investigator Name Role Phone Jose Alfredo Burgos MD Primary Care Provider [phone] Latoya Conroy APRN, TROUBLE LOCATER Unavailable Michael Ibarra MD Unavailable [phone] Reason for Visit * Reason Comments Medication Refill Encounter Details Date Type Department Care Team (Late st Contact Info) Description 08/04/2024 Refill [facility] - [place] [address] [place] [address] Latoya Conroy APRN, TROUBLE LOCATER [address] [place] [address] Medication Refill Social History Tobacco Use Types [...] AM CDT Medication refilled and signed [facility] chronic medication standing order for pediatric and adult patients. documented in this encounter Plan of Treatment Not on file documented as of this encounter Visit Diagnoses Diagnosis Pain of upper abdomen Abdominal pain, other specified site documented in this encounter Care Teams Paranormal Investigator Relationship Specialty Start Date End Date Jose Alfredo Burgos MD [address] [place] [address] PCP - General Family Medicine 09/16/23 Latoya Conroy APRN, TROUBLE LOCATER [address] [place] [address] Nurse Practitioner Advanced Practice Nurse 12/22/23 Michael Ibarra MD 2 [facility] [address] [address] Consulting Physician General Surgery 06/07/24 documented as of this encounter
--- OUTSIDE RECORDS SUMMARY | 2024-10-23 15:22 | XMS_ITS ---
Author Organization [facility] Address [address] [place] [address] Phone Care Team Providers Care Die Attacher Name Role Phone Jose Alfredo Burgos MD Primary Care Provider [phone] Latoya Conroy APRN, [employer] [employer] Unavailable Michael Ibarra MD Unavailable [phone] [facility] Status:Enrolled (Active) Start date:06/20/2024 Enrollment date:06/20/2024 Related social drivers of health:Intimate Partner Violence, Social Connections, Alcohol Use, Tobacco Use, Financial Resource Strain,Depression, Stress, Physical Activity, Food Insecurity, Transportation Needs, Housing Stability, Utilities Continued Care and Services Coordination
--- OUTSIDE RECORDS SUMMARY | 2024-10-23 15:22 | XMS_ITS | Clinical Summary ---
Author Organization [facility] Address [address] [place] [address] Care Team Providers Care Foreign Exchange Dealer Name Role Phone Jose Alfredo Burgos MD Primary Care Provider [phone] Allergies No known active allergies Medications dextroamphetam [...] CDT - 09/26/2024 10:59 AM CDT [facility] Emergency Department [address] [place] [address] Saba Montano MD Pain due to dental caries (Primary Dx); Joint swelling Discharge Disposition: Discharge to home or self care 08/11/2024 10:24 AM CDT - 08/11/2024 10:48 AM CDT [facility] Emergency Department [address] [place] [address] Dari Kevin MD Encounter for medication refill [...] on file Legal Sex 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 FT: FT Report ID: [id number] Reading Location: [id number] Procedure Note Shantell Valle MD - 09/26/2024 [...] Shantell Londono M.D. FT: FT Report ID: [id number] Reading Location: [id number] Saba Montano MD IMG XR PROCEDURES F inal Result from Last 3 Months Insurance [facility] Care Teams Foreign Exchange Dealer Relationship Specialty Start Date End Date Jose Alfredo Burgos MD [address] [place] [address] [address] [place] [address] PCP - General Family Medicine 10/14/23
--- NOTE | 2024-10-23 16:06 | ED_ITS ---
HPI - Dental/Oral General Chief complaint: Dental/Oral Stated complaint: dental pain Time Seen by Provider: 10/23/24 15:02 Source: patient Mode of arrival: ambulatory Limitations: no limitations History of Present Illness HPI Narrative: This is a 39 year old female that presents to the ER for toothache. She was seen for this last week. Started on Augmentin with little relief. Denies fevers. MD Complaint: tooth pain Location: Tooth # (31) Related Data Allergies Allergy/AdvReac Type Severity Reaction Status Date / Time No Known Drug Allergies Allergy NA Verified 10/18/24 10:22 Review of Systems Review of Systems: All systems reviewed & are unremarkable except as noted in HPI and below PMFSH Past Medical History Medical History (Updated 10/23/24 @ 16:07 by Marii Warner PA-C) No active medical problems Social History Social History (Updated 06/21/24 @ 14:05 by Marii Warner PA-C) Smoking status: Current every day smoker Exam Narrative: GENERAL: Well-appearing, well-nourished, and in no acute distress. HEAD: Normocephalic, atraumatic. EYES: EOMI. ENT: Nares clear, no rhinorrhea or epistaxis. Mucous membranes moist. Oropharynx without tonsillar hypertrophy exudate or other lesions. Poor dentition. Several fractured, decaying teeth. No focal fluctuance to suggest abscess NECK: Supple. No adenopathy or masses. CHEST: No respiratory distress. HEART: Regular rate EXTREMITIES: Normal range of motion. No edema. SKIN: Warm, dry, no rash. NEURO: No focal deficits. Alert and oriented x3. PSYCH: Normal mood and affect Course Vital Signs Vital signs: Vital Signs Temperature 98.2 F 10/23/24 14:52 Pulse Rate 110 H 10/23/24 14:52 Respiratory Rate 16 10/23/24 14:52 Blood Pressure 125/85 10/23/24 14:52 Pulse Oximetry 100 10/23/24 14:52 Oxygen Delivery Room Air 10/23/24 14:52 Temperature 98.2 F 10/23/24 14:52 Pulse Rate 110 H 10/23/24 14:52 Respiratory Rate 16 10/23/24 14:52 Blood Pressure 125/85 10/23/24 14:52 Pulse Oximetry 100 10/23/24 14:52 Oxygen Delivery Room Air 10/23/24 14:52 MDM - Dental/Oral MDM Narrative Medical decision making narrative: Patient presents to the emergency department for toothache. Was seen recently started on when to with little relief. Will switch to clindamycin. She has no focal abscess on exam. Once again instructed on the importance of seeing a dentist Differential Diagnosis Differential diagnosis: Likely dental caries, toothache and dental abscess Critical Care Time Critical Care Time Critical Care Time: No Discharge Plan Discharge Clinical Impression: Toothache Patient Disposition: Home Condition: Stable Instructions: Antibiotic Form, Toothache (ED) Additional Instructions: Return to the Emergency Department if you experience fever >101, increasing swelling and redness of your tooth, or any other symptoms that are concerning to you Take antibiotic as prescribed. Tylenol or Ibuprofen as needed for pain. Take oral antibiotic (Clindamycin) as prescribed Follow up with your dentist Patient Language: Icelandic Prescriptions: New clindamycin HCl [Cleocin HCl] 300 mg capsule 300 mg PO Q6H 7 Days Qty: 28 0RF hydrocodone-acetaminophen 5-325 mg tablet 1 tablet PO Q8H PRN (Reason: pain) Qty: 10 0RF No Action hydrocodone-acetaminophen 5-325 mg tablet 1 tablet PO Q12H PRN (Reason: pain) Qty: 14 0RF clindamycin HCl 300 mg capsule 300 mg PO Q6H 10 Days Qty: 40 0RF hydrocodone-acetaminophen 5-325 mg tablet 1 tablet PO Q6H PRN (Reason: pain) Qty: 10 0RF amoxicillin-pot clavulanate 875-125 mg tablet 1 tablet PO Q12H 7 Days Qty: 14 0RF hydrocodone-acetaminophen 5-325 mg tablet 1 tablet PO Q6H PRN (Reason: pain) Qty: 14 0RF Follow-up/Referrals: UNKNOWN,DOCTOR [Primary Care Provider] -
[2024-10-23 16:27] VITALS: BP 129/93; PULSE 99; RESP 20; O2SAT 99
== END 2024-10-23 16:29 | disposition home or self-care (01) ==
PROVIDERS: Emergency Provider Physician Assistant
DX: K08.89 Other specified disorders of teeth and supporting structures (principal); F17.200 Nicotine dependence, unspecified, uncomplicated
CPT/HCPCS: 99283

== ENCOUNTER 2024-10-23 23:24 | Inpatient (IN) | payer OTHER, SELFPAY ==
--- NOTE | ~2024-10-23 | XR_ITS ---
XR chest 2V Ordering provider: Aure Herrera MD History: 39 years Female with . dizzy/lightheaded feels like going to faint. . Comparison: None. FINDINGS: MEDIASTINUM: The cardiac silhouette is not enlarged. LUNGS: No infiltrates, effusions or pneumothorax. OTHER: No free air under the diaphragm. IMPRESSION: No acute cardiopulmonary pathology. Reviewed, dictated and finalized at location A.
--- NOTE | ~2024-10-23 | CT_ITS ---
CT scan of the Neck Technique: 2.5 mm axial scans were obtained through the neck after intravenous administration of 75 c c Omnipaque 350. Coronal and sagittal reconstructions of the neck were obtained. Dose reduction techn ique was used on this scan by utilizing automated exposure control and iterative reconstruction techn ique. The dose-length product (DLP) was 523.94 mGy-cm. Clinical History: Lymphadenopathy Findings: There is no evidence of any significant cervical lymphadenopathy. Several small, nonenlarged jugulo- digastric and posterior cervical lymph nodes are noted bilaterally. Parapharyngeal spaces appear norm al bilaterally. The parotid and submandibular glands appear normal. The pharyngeal mucosal spaces appear normal. No soft tissue masses are seen in the neck. The thyroid gland appears normal. Images of the lung apices reveal no abnormalities. Impression: No significant abnormalities noted. Reviewed, dictated and finalized at [facility]. Impression: No significant abnormalities noted.
[2024-10-23 23:25] VITALS: BP 146/97; PULSE 104; RESP 16; TEMP 36.6; O2SAT 99
--- OUTSIDE RECORDS SUMMARY | 2024-10-23 23:26 | XMS_ITS | Encounter Summary ---
Author Organization [facility] Address [address] [place] [address] Phone Care Team Providers Care Interactive Graphic Designer Name Role Phone Jose Alfredo Burgos MD Primary Care Provider [phone] Latoya Conroy APRN, RAIL WALKER Unavailable Michael Ibarra MD Unavailable [phone] Reason for Visit * Reason Comments Medication Refill Encounter Details Date Type Department Care Team (Late st Contact Info) Description 04/13/2024 Refill [facility] - Gastroenterology - [place] [address] [place] [address] Latoya Conroy APRN, RAIL WALKER [address] [place] [address] Medication Refill Social History Tobacco Use Types [...] Tete Jean RN - 04/13/2024 8:08 AM TRAINING PERSONNEL SUPERVISOR Medication refilled and signed per [facility] chronic medication standing order for pediatric and adult patients. NING PERSONNEL SUPERVISOR documented in this encounter Plan of Treatment Not on file documented as of this encounter Visit Diagnoses Diagnosis Pain of upper abdomen Abdominal pain, other specified site documented in this encounter Care Teams Interactive Graphic Designer Relationship Specialty Start Date End Date Jose Alfredo Burgos MD [address] [place] [address] PCP - General Family Medicine 09/16/23 Latoya Conroy APRN, RAIL WALKER [address] [facility] [place] [address] Nurse Practitioner Advanced Practice Nurse 12/22/23 Michael Ibarra MD [address] [address] Consulting Physician General Surgery 06/07/24 documented as of this encounter
--- OUTSIDE RECORDS SUMMARY | 2024-10-23 23:26 | XMS_ITS | Encounter Summary ---
Author Organization [facility] Address [address] [place] [address] Phone Care Team Providers Care Housing Inspectors Name Role Phone Jose Alfredo Burgos MD Primary Care Provider [phone] Latoya Conroy APRN, GLOBAL PROCESS OWNER Unavailable Michael Ibarra MD Unavailable [phone] Reason for Visit * Reason Comments Medication Refill Encounter Details Date Type Department Care Team (Late st Contact Info) Description 08/04/2024 Refill [facility] - Gastroenterology - [place] #[address] [place] [address] Latoya Conroy APRN, GLOBAL PROCESS OWNER [address] [place] [address] Medication Refill Social History Tobacco Use Types [...] AM CDT Medication [facility] order for pediatric and adult patients. documented in this encounter Plan of Treatment Not on file documented as of this encounter Visit Diagnoses Diagnosis Pain of upper abdomen Abdominal pain, other specified site documented in this encounter Care Teams Housing Inspectors Relationship Specialty Start Date End Date Jose Alfredo Burgos MD [address] [place] [address] PCP - General Family Medicine 09/16/23 Latoya Conroy APRN, GLOBAL PROCESS OWNER [address] [place] [address] Nurse Practitioner Advanced Practice Nurse 12/22/23 Michael Ibarra MD 2 [facility] [address] [address] Consulting Physician General Surgery 06/07/24 documented as of this encounter
--- OUTSIDE RECORDS SUMMARY | 2024-10-23 23:26 | XMS_ITS | Referral Summary ---
Author Organization [facility] Address [address] [place] [address] Care Team Providers Care Christian Education Director Name Role Phone Jose Alfredo Burgos MD Primary Care Provider [phone] Encounters Date Type Department Care Team Description 09/26/2024 9:05 AM CDT - 09/26/2024 10:59 AM CDT Emergency [facility] Emergency Department [address] [place] [address] Saba Montano MD Pain due to dental caries (Primary Dx); Joint swelling Discharge Disposition: Discharge to home or self care 08/11/2024 10:24 AM CDT - 08/11/2024 10:48 AM CDT Emergency [facility] Emergency Department [address] [place] [address] Dari Kevin MD Encounter for medication refill [...] on file 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 FT: FT Report ID: [id number] Reading Location: [id number] Procedure Note Shantell Valle MD - 09/26/2024 [...] Shantell Londono M.D. FT: FT Report ID: [id number] Reading Location: [id number] Saba Montano MD IMG XR PROCEDURES F inal Result from Last 3 Months Insurance [facility] Care Teams Christian Education Director Relationship Specialty Start Date End Date Jose Alfredo Burgos MD [address] [place] [address] [address] [place] [id number] PCP - General Family Medicine 10/14/23
--- OUTSIDE RECORDS SUMMARY | 2024-10-23 23:26 | XMS_ITS | Clinical Summary ---
Author Organization [facility] Address [address] [place] [address] Phone Care Team Providers Care Color Tester Name Role Phone Jose Alfredo Burgos MD Primary Care Provider [phone] Latoya Conroy APRN, CRITICAL CARE CLINICAL NURSE SPECIALIST Unavailable Michael Ibarra MD Unavailable [phone] Medications HYDROcodone-acet aminophen (NORCO) 5-325 MG Tablet [...] Department Care Team Description 08/20/[address] [facility] Scheduling [address] [place] [address] Michael Ibarra MD Nausea vomiting and diarrhea (Primary Dx) 08/08/2024 8:01 PM CDT - 08/09/2024 1:02 AM CDT Emergency [facility] [address] [place] [address] Franck Conner MD Generalized abdominal pain Discharge Disposition: Discharged to home or Selfcare 08/08/2024 Travel 08/08/2024 [facility] [address] [place] [address] Michael Ibarra MD Rectal Bleeding 08/04/2024 [facility]ill [facility] [address] [place] [address] Latoya Conroy APRN, CRITICAL CARE CLINICAL NURSE SPECIALIST Medication Refill from Last 3 Months Family [...] loops. No obvious wall thickening. Normal appendix. Rjcx-vu-umardglt amount of stool volume is seen scattered [...] Electronically signed by Prem Monge M.D. MF: LKAIA Report ID: [id number] Reading Location: [id number] Procedure Note Prem Monge, DO - 08/08/2024 [...] loops. No obvious wall thickening. Normal appendix. Tkfv-qe-zerithsa amount of stool volume is seen scattered [...] Prem Monge M.D. MF: LAKIA Report ID: [id number] Reading Location: [place] [address] IMPRESSION: 1. No acute intra-abdominal/pelvic abnormality. 2. Additional findings; as detailed. Franck Conner MD IMG CT ORDERABLES Final R esult * POCT Urine HCG () (08/08/2024 5:32 PM CDT) [facility] POC URINE Negative [facility] POC URINE CONTROL [place] [facility] Urine 08/08/2024 5:32 PM CDT Clovis Paz MD POINT OF CARE TESTING (MANUAL) F inal Result [facility] [address] [place] [address] * (ABNORMAL) Urinalysis w/ Reflex (08/08/2024 5:13 PM CDT) Pathologist [facility] SPECIFIC GRAVITY 1.015 1.003 - 1.030 08/08/2024 5:52 PM CDT [facility] URINE PH 6.5 5.0 - 9.0 08/08/2024 5:52 PM CDT [facility] WBC ESTERASE Negative Negative 08/08/2024 5:52 PM CDT [facility] NITRITE Negative Negative 08/08/2024 5:52 PM CDT [facility] PROTEIN, RANDOM URINE 30 mg/dL(A) Negative 08/08/2024 5:52 PM CDT [facility] URINE GLUCOSE, QUAL Negative Negative 08/08/2024 5:52 PM CDT [facility] URINE KETONES Negative Negative 08/08/2024 5:52 PM CDT [facility] UROBILINOGEN Normal Normal mg/dL 08/08/2024 5:52 PM CDT [facility] URINE BLOOD Negative Negative javier/ul 08/08/2024 5:52 PM CDT [facility] URINALYSIS COLOR Yellow 08/09/19 5:52 PM CDT [facility] URINALYSIS CLARITY Clear 08/08/2024 5:52 PM CDT [facility] WBC (Urine) 0-5 Negative, 0-5 /hpf 08/08/2024 5:52 PM CDT [facility] URINE RBC'S Negative Negative, 0-2 /hpf 08/08/2024 5:52 PM CDT [facility] EPITHELIAL CELLS Moderate amount /lpf 08/08/2024 5:52 PM CDT [facility] BACTERIA, URINE Few(A) Negative /hpf 08/08/2024 5:52 PM CDT [facility] Urine URINE SPECIMEN / Unknown Non-Phlebotomy Collection / Unknown 08/08/2024 5:13 PM CDT 08/08/2024 5:34 PM CDT us Clovis Paz MD URINE ORDERABLES Final Result [facility] [address] [place] [address] * (ABNORMAL) Urine Drug Screen (08/08/2024 5:13 PM CDT) UR AMPHETAMINE NON DETECTED NON DETECTED 08/09/2024 12:01 AM CDT [facility] UR BENZODIAZEPINES NON DETECTED NON DETECTED 08/09/2024 12:01 AM CDT [facility] UR COCAINE METABOLITE NON DETECTED NON DETECTED 08/09/2024 12:01 AM CDT [facility] UR OPIATES NON DETECTED NON DETECTED 08/09/2024 12:01 AM CDT [facility] UR PHENCYCLIDINE NON DETECTED NON DETECTED 08/09/2024 12:01 AM CDT [facility] UR CANNABINOID DETECTED(A) NON DETECTED 08/09/2024 12:01 AM CDT [facility] UR BARBITURATE NON DETECTED NON DETECTED 08/09/2024 12:01 AM CDT [facility] UR FENTANYL NON DETECTED NON DETECTED 08/09/2024 12:01 AM CDT [facility] Urine URINE SPECIMEN / Unknown Non-Phlebotomy Collection / Unknown 08/08/2024 5:13 PM CDT 08/08/2024 5:34 PM CDT us Franck Conner MD URINE ORDERABLES Final Re sult [facility] [address] [place] [address] * (ABNORMAL) CBC with Auto Differential (08/08/2024 4:53 PM CDT) WBC 8.60 4.00 - 12.00 10(3)/mcL 08/08/2024 5:57 PM CDT [facility] RBC 3.21(L) 3.80 - 5.30 10(6)/mcL 08/08/2024 5:57 PM CDT [facility] HEMOGLOBIN (HGB) 11.0(L) 12.0 - 15.8 g/dL 08/08/2024 5:57 PM CDT [facility] HEMATOCRIT (HCT) 35.4(L) 36.0 - 47.0 % 08/08/2024 5:57 PM CDT [facility] MCV 110.3(H) 82.0 - 96.0 fL 08/08/2024 5:57 PM CDT [facility] MCH 34.3(H) 26.0 - 34.0 pg 08/08/2024 5:57 PM CDT [facility] MCHC 31.1 31.0 - 36.0 g/dL 08/08/2024 5:57 PM CDT [facility] PLATELET COUNT 360 140 - 440 10(3)/[facility] 08/08/2024 5:57 PM CDT [facility] RDW 12.8 11.8 - 15.5 % 08/08/2024 5:57 PM CDT [facility] MPV 9.6(L) 9.7 - 12.4 fL 08/08/2024 5:57 PM CDT [facility] NEUTROPHILS 49.4 47.0 - 73.0 % 08/08/2024 5:57 PM CDT [facility] LYMPHOCYTES 36.4 18.0 - 42.0 % 08/08/2024 5:57 PM CDT [facility] MONOCYTES 7.6 4.0 - 12.0 % 08/08/2024 5:57 PM CDT [facility] EOSINOPHILS 6.0(H) 0.0 - 5.0 % 08/08/2024 5:57 PM CDT [facility] BASOPHILS 0.6 0.0 - 1.0 % 08/08/2024 5:57 PM CDT [facility] ABSOLUTE NEUTROPHILS 4.25 1.60 - 7.70 10(3)/mcL 08/08/2024 5:57 PM CDT [facility] ABSOLUTE LYMPHOCYTES 3.13 1.30 - 3.20 10(3)/mcL 08/08/2024 5:57 PM CDT [facility] ABSOLUTE MONOCYTES 0.65 0.20 - 1.00 10(3)/mcL 08/08/2024 5:57 PM CDT [facility] ABSOLUTE EOSINOPHIL 0.52(H) 0.00 - 0.40 10(3)/mcL 08/08/2024 5:57 PM CDT [facility] ABSOLUTE BASOPHILS 0.05 0.00 - 0.10 10(3)/mcL 08/08/2024 5:57 PM CDT [facility] NRBC PER 100 WBC 0 08/09/19 5:57 PM CDT [facility] RESULTS ARE CONSISTENT WITH PERIPHERAL SMEAR REVIEW Yes 08/08/2024 5:57 PM CDT [facility] RBC MORPHOLOGY CONSISTENT WITH INDICES Yes 08/08/2024 5:57 PM CDT [facility] Blood Venipuncture / Unknown 08/08/2024 4:53 PM CDT 08/08/2024 5:17 PM CDT us Clovis Paz MD HEMATOLOGY ORDERABLES Final Resu lt Performing Organization Address City/[facility]/ZIP Co de Phone Number [facility] [address] [place] [address] * Lipase (08/08/2024 4:53 PM CDT) LIPASE 28 8 - 78 U/L 08/08/2024 5:40 PM CDT [facility] Blood Venipuncture / Unknown 08/08/2024 4:53 PM CDT 08/08/2024 5:17 PM CDT Clovis Paz MD CHEMISTRY ORDERABLES Final Resul t Performing Organization Address City/[facility]/ZIP Co de Phone Number [facility] [address] [place] [address] * CMP (08/08/2024 4:53 PM CDT) SODIUM 139 136 - 145 mmol/L 08/08/2024 5:40 PM CDT [facility] POTASSIUM 4.1 3.5 - 5.1 mmol/L 08/08/2024 5:40 PM CDT [facility] CHLORIDE 106 98 - 107 mmol/L 08/08/2024 5:40 PM CDT [facility] CO2, VENOUS 24 22 - 30 mmol/L 08/08/2024 5:40 PM CDT [facility] ANION GAP 13.1 <18.0 mmol/L 08/08/2024 5:40 PM CDT [facility] GLUCOSE 77 70 - 99 mg/dL 08/08/2024 5:40 PM CDT [facility] BUN 16 5 - 18 mg/dL 08/08/2024 5:40 PM CDT [facility] CREATININE, BLOOD 0.91 0.60 - 1.00 mg/dL 08/08/2024 5:40 PM CDT [facility] BUN/CREATININE RATIO 18 12 - 20 ratio 08/08/2024 5:40 PM CDT [facility] TOTAL PROTEIN 7.0 6.0 - 8.0 g/dL 08/08/2024 5:40 PM CDT [facility] ALBUMIN 3.9 3.5 - 5.0 g/dL 08/08/2024 5:40 PM CDT [facility] A/G RATIO 1.3 1.0 - 2.2 08/08/2024 5:40 PM CDT [facility] CALCIUM 8.7 8.7 - 10.5 mg/dL 08/08/2024 5:40 PM CDT [facility] T BILI 0.3 0.2 - 1.2 mg/dL 08/08/2024 5:40 PM CDT [facility] SGOT (AST) 17 <43 U/L 08/08/2024 5:40 PM CDT [facility] SGPT (ALT) 13 <56 U/L 08/08/2024 5:40 PM CDT [facility] ALKALINE PHOSPHATASE 74 40 - 150 U/L 08/08/2024 5:40 PM CDT [facility] GFR, ESTIMATED >60 >=60 08/08/2024 5:40 PM CDT [facility] Comment: Creatinine Clearance is the preferred criteria for selecting drug dose adjustments in renally impaired patients. The GFR is provided as additional pertinent clinical information. GFR is reported in mL/min/1.73 sq m. Calculation based on the Chronic Kidney Disease Epidemiology Collaboration (CKD- EPI) equation refit without adjustment for race. GFR, EST. >60 >=60 025 5:40 PM CDT [facility] GFR, EST. NONAFRICAN >60 >=60 08/08/2024 5:40 PM CDT [facility] Blood Venipuncture / Unknown 08/08/2024 4:53 PM CDT 08/08/2024 5:17 PM CDT us Clovis Paz MD CHEMISTRY ORDERABLES Final Resul t [facility] [address] [place] [address] from Last 3 Months Insurance MEDICAID [place] * Guarantor: [facility] Account Type Relation to Patient Date of Phone Billing Address Institutional Other [address] [place] [address] Care Teams Color Tester Relationship Specialty Start Date End Date Jose Alfredo Burgos MD [address] [facility] [place] [place] [address] PCP - General Family Medicine 09/16/23 Latoya Conroy APRN, CRITICAL CARE CLINICAL NURSE SPECIALIST [address] [place] [address] Nurse Practitioner Advanced Practice Nurse 12/22/23 Michael Ibarra MD [address] [address] Consulting Physician General Surgery 06/07/24
--- OUTSIDE RECORDS SUMMARY | 2024-10-23 23:26 | XMS_ITS | Clinical Summary ---
Author Organization [facility] Address [address] [place] [address] Care Team Providers Care Piano Technician Name Role Phone Jose Alfredo Burgos MD Primary Care Provider [phone] Allergies No known active allergies Medications dextroamphetam [...] CDT - 09/26/2024 10:59 AM CDT Emergency [facility] Emergency Department [address] [place] [address] Saba Montano MD Pain due to dental caries (Primary Dx); Joint swelling Discharge Disposition: Discharge to home or self care 08/11/2024 10:24 AM CDT - 08/11/2024 10:48 AM CDT Emergency [facility] Emergency Department [address] [place] [address] Dari Kevin MD Encounter for medication refill [...] on file 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 FT: FT Report ID: [id number] Reading Location: [id number] Procedure Note Shantell Valle MD - 09/26/2024 [...] Shantell Londono M.D. FT: FT Report ID: [id number] Reading Location: [id number] Saba Montano MD IMG XR PROCEDURES F inal Result from Last 3 Months Insurance [facility] Care Teams Piano Technician Relationship Specialty Start Date End Date Jose Alfredo Burgos MD [address] [place] [address] [address] [place] [address] PCP - General Family Medicine 10/14/23
--- OUTSIDE RECORDS SUMMARY | 2024-10-23 23:26 | XMS_ITS | Encounter Summary ---
Author Organization [facility] Address [address] [place] [address] Phone Care Team Providers Care Hands Hanger Name Role Phone Jose Alfredo Burgos MD Primary Care Provider [phone] Latoya Conroy APRN, ANIMAL TECH Unavailable Michael Ibarra MD Unavailable [phone] Encounter Details Date Type Department Care Team (Late st Contact Info) Description 09/07/2023 Lab Requisition [facility] [address] [place] [address] Madi Tabor, [facility] [address] [place] [address] Encounter for pre-employment examination Social [...] 0.12 <8.01 IU/mL 09/09/2023 10:31 AM CDT [facility] TB ANTIGEN 1 0.01 <0.35 IU/mL 09/09/2023 10:31 AM CDT [facility] TB ANTIGEN 2 0.01 <0.35 IU/mL 09/09/2023 10:31 AM CDT [facility] MITOGEN CONTROL 9.88 >0.49 IU/mL 09/09/19 10:31 AM CDT [facility] INTEPRETATION TB NEGATIVE NEGATIVE, NEGATIVE (TB antigen response less than 25% of internal negative control value) 09/09/2023 10:31 AM CDT [facility] Comment:No immune response t o Mycobacterium tuberculosis antigens was noted. M. tuberculosis infection unlikely. Blood No Phlebotomy Charged / Unknown 09/07/2023 10:05 AM CDT 09/07/2023 3:10 PM CDT Narrative [facility] - 09/09/2023 10:31 AM CDT A [...] otherwise immunocompromised individuals. https://www.cdc.gov/tb/publications/guidelines/testing.htm us Madi Tabor [facility] IMMUNOLOGY ORDERABLES Final Result [facility] [address] [place] [address], documented in this encounter Visit Diagnoses Diagnosis Encounter for pre-employment examination Health examination of defined subpopulation documented in this encounter Care Teams Hands Hanger Relationship Specialty Start Date End Date Jose Alfredo Burgos MD [address] [place] [address] [place] [address] PCP - General Family Medicine 09/16/23 Latoya Conroy APRN, RIC [address] [place] [address] Nurse Practitioner Advanced Practice Nurse 12/22/23 Michael Ibarra MD 2 [facility] [address] [address] Consulting Physician General Surgery 06/07/24 documented as of this encounter
--- OUTSIDE RECORDS SUMMARY | 2024-10-23 23:26 | XMS_ITS ---
Author Organization [facility] Address [address] [place] [address] Phone Care Team Providers Care Ground Water Pump Installer Name Role Phone Jose Alfredo Burgos MD Primary Care Provider [phone] Latoya Conroy APRN, JET PILOT Unavailable Michael Ibarra MD Unavailable [phone] [facility] Status:Enrolled (Active) Start date:06/20/2024 Enrollment date:06/20/2024 Related social drivers of health:Intimate Partner Violence, Social Connections, Alcohol Use, Tobacco Use, Financial Resource Strain,Depression, Stress, Physical Activity, Food Insecurity, Transportation Needs, Housing Stability, Utilities Continued Care and Services Coordination
--- NOTE | 2024-10-23 23:29 | ECG_ITS ---
Test Date: 2024-10-23 23:37:13 Measurements Intervals [place] Rate: 98 P: 30 IL: 152 QRS: -12 QRSD: 102 T: 22 QT: 341 QTc: 437 Interpretive Statements SINUS RHYTHM VOLTAGE CRITERIA FOR LEFT VENTRICULAR HYPERTROPHY BORDERLINE R WAVE PROGRESSION, ANTERIOR LEADS BORDERLINE T WAVE ABNORMALITY- ANTEROLAT/INF LEADS BASELINE ARTIFACT- I, II, III, AVR, AVL, AVF BORDERLINE ECG No previous ECG available for comparison Electronically Signed On 10-24-2024 06:25:22 CDT by Josr Daley D.O.
[2024-10-23 23:49] LABS: Basophils Percent Auto 0.5 % (0.2-1.2); Eosinophils Absolute Auto 0.7 K/mm3 (0-0.3); Eosinophils Percent Auto 8.6 % (0-4.4); Hematocrit 32.6 % (37.0-47.0); Hemoglobin 10.3 g/dL (12.0-15.0); Immature Granulocyte Absolute 0.05 K/mm3 (0.00-0.031); Immature Granulocyte Percent A 0.6 % (0-0.5); Lymphocytes Percent Auto 41.7 % (18.3-44.2); Mean Corpuscular HGB Conc 31.6 g/dl (32-36); Mean Corpuscular Hemoglobin 34.3 pg (26-34); Mean Corpuscular Volume 108.7 fl (80-100); Monocytes Absolute Auto 0.6 K/mm3 (0.1-0.6); Monocytes Percent Auto 8.1 % (2.6-8.5); Neutrophils Absolute Auto 3.2 K/mm3 (1.3-6.7); Neutrophils Percent Auto 40.5 % (45.5-73.1); Platelet Count Result 330 k/mm3 (150-375); Red Cell Distribution Width 13.2 % (11.5-14.5); White Blood Count 7.9 K/mm3 (4.5-10.0)
[2024-10-24] VITALS (19 sets, daily range): BP systolic 130–159; BP diastolic 92–106; PULSE 70–91; RESP 14–20; TEMP 36.2–36.4; O2SAT 98–100; BMI 30.9
[2024-10-24 00:03] LABS: Alanine Aminotransferase 16 U/L (6-35); Alkaline Phosphatase 64 U/L (38-126); Anion Gap 6 mmol/L (4-12); Aspartate Amino Transferase 28 U/L (14-36); Bilirubin,Total 0.4 mg/dL (0.2-1.3); Blood Urea Nitrogen 12 mg/dL (7-17); Calcium 9.1 mg/dL (8.4-10.2); Carbon Dioxide 29 mmol/L (22-30); Chloride 104 mmol/L (98-107); Estimated CRCL calculation 106 ml/min; Estimated Glomerular Filt Rate > 60; Glucose 103 mg/dL (65-110); Potassium 4.1 mmol/L (3.4-5.0); Sodium 139 mmol/L (137-145)
--- NOTE | 2024-10-24 03:07 | ED.DENTAL ---
HPI - Dental/Oral General Chief complaint: Syncope Stated complaint: dental pain Time Seen by Provider: 10/24/24 03:05 Source: patient Mode of arrival: ambulatory Limitations: no limitations History of Present Illness HPI Narrative: Patient presents with dental pain. Seen earlier for the same. Reports pain not controlled and swelling spreading, causing her head to hurt. No fevers or chills but diaphoretic. R ear pain. Using Tylenol. No nausea or shortness of breath. Feels like she is breathing funny and lightheaded and dizzy as well as confused. Has been on multiple antibiotics (penicillin, amoxicillin, etc.). Dentist appointment not until december. Reports near syncope. Facial pain. Related Data Home Medications ?Medication ?Instructions ?Recorded ?Confirmed ?Last Taken ?Type cyclobenzaprine 10 mg tablet 10 mg PO QHS 10/24/24 10/24/24 10/23/24 History dicyclomine 10 mg capsule 10 mg PO TID 10/24/24 10/24/24 10/23/24 History duloxetine 30 mg capsule,delayed 60 mg PO DAILY 10/24/24 10/24/24 10/23/24 History release gabapentin 600 mg tablet 600 mg PO TID 10/24/24 10/24/24 10/23/24 History losartan 25 mg tablet (Cozaar) 25 mg PO DAILY 10/24/24 10/24/24 10/23/24 History quetiapine 100 mg tablet (Seroquel) 150 mg PO HS 10/24/24 10/24/24 10/23/24 History quetiapine 50 mg tablet (Seroquel) 50 mg PO DAILY 10/24/24 10/24/24 10/23/24 History Allergies Allergy/AdvReac Type Severity Reaction Status Date / Time No Known Drug Allergies Allergy NA Verified 10/18/24 10:22 [facility] Past Medical History Medical History (Updated 10/26/24 @ 18:44 by Aure Herrera MD) Right facial swelling Social History Social History (Updated 06/21/24 @ 14:05 by Marii Warner PA-C) Smoking status: Current every day smoker Alcohol intake: never Substance use: current Substance use type: marijuana Last use: 2 1/2 weeks ago Do You Feel Safe in your Home?: Yes Lack of Transportation: No Lack of Food: Never True Current Housing: I Have Housing Concerned About Future Housing: No Difficulty Paying Gas/Electric Bills: No Difficulty Paying for Meds: No Currently Unemployed: No Education: High School Diploma/GED Difficulty w/ Childcare or Family Care: No Spiritual care concerns: No Exam Narrative: GENERAL: Well-appearing, well-nourished, in mild acute distress. HEAD: Normocephalic, atraumatic. EYES: Non injected, non icteric ENT: Nares clear, no rhinorrhea or epistaxis. Gross auditory acuity intact. Mild trismus but is able to open mouth. Dry mucous membranes. Multiple fractured teeth, particular lower right. Bilateral TMs without effusion, erythema, vesicles. Mild facial swelling (R > L). Tenderness to palpation of buccal mucosa bilaterally. No ling induration/abscess of cheeks. Tenderness to palpation and percussion of gums. NECK: Supple. No meningismus. Lymphadenopathy. CHEST: Speaking in full sentences. No respiratory distress. HEART: Tachycardic rate and rhythm. . ABDOMEN: Soft, nondistended. EXTREMITIES: Normal range of motion. No lower extremity edema. SKIN: Warm, dry, no rash. NEURO: No focal deficits. Alert and oriented. Answering questions. Following commands. Normal speech without aphasia or dysarthria. PSYCH: Congruent mood and affect. Course Vital Signs Vital signs: Vital Signs Temperature 97.8 F 10/23/24 23:25 Pulse Rate 104 H 10/23/24 23:25 Respiratory Rate 16 10/23/24 23:25 Blood Pressure 146/97 H 10/23/24 23:25 Pulse Oximetry 99 10/23/24 23:25 Oxygen Delivery Room Air 10/23/24 23:25 Temperature 99.0 F 10/26/24 14:00 Pulse Rate 67 10/26/24 14:00 Respiratory Rate 16 10/26/24 14:00 Blood Pressure 127/66 10/26/24 14:00 Pulse Oximetry 100 10/26/24 14:00 Oxygen Delivery Room Air 10/25/24 20:00 MDM - Dental/Oral MDM Narrative Medical decision making narrative: Patient presents with dental pain. Seen earlier for the same. Pain not improving and reports worsening facial swelling. Status post multiple rounds of PO antibiotics. In the ED she is afebriel with VS notable for mild tachycardia as well as hypertension. No leukocytosis. Macrocytic anemia. CT stat rad read as below. Given she has failed outpatient antibiotic therapy, reasonable to admit for IV antibiotics. Patient amenable. Blood cultures ordered as is antibiotics which are scheduled q.6. Discussed with liquefaction and regasification helper hospitalist PRITI Pereira who accepts admission. Differential Diagnosis Differential diagnosis: Likely gingival abscess, dental caries, dental abscess, fracture of tooth, aphthous ulcer and other (Facial cellulitis; Iam's) Lab Data Attestation: I reviewed the patient's lab results. Lab results narrative: Urine test negative 10/26/24 06:57 10/26/24 06:57 Labs: Lab Results 10/23/24 10/23/24 10/24/24 Range/Units 23:42 23:43 01:38 WBC 7.9 (4.5-10.0) K/mm3 RBC 3.00 L (4.2-5.4) M/mm3 Hgb 10.3 L (12.0-15.0) g/dL Hct 32.6 L (37.0-47.0) % MCV 108.7 H (80-100) fl MCH 34.3 H (26-34) pg MCHC 31.6 L (32-36) g/dl RDW 13.2 (11.5-14.5) % Plt Count 330 (150-375) k/mm3 MPV 9.0 (7.4-10.4) fl Immature Gran % (Auto) 0.6 H (0-0.5) % Neut % (Auto) 40.5 L (45.5-73.1) % Lymph % (Auto) 41.7 (18.3-44.2) % Larue % (Auto) 8.1 (2.6-8.5) % Eos % (Auto) 8.6 H (0-4.4) % Baso % (Auto) 0.5 (0.2-1.2) % Lymph # (Auto) 3.30 H (0.9-3.2) K/mm3 Larue # (Auto) 0.6 (0.1-0.6) K/mm3 Eos # (Auto) 0.7 H (0-0.3) K/mm3 Baso # (Auto) 0.0 (0.0-0.1) K/mm3 Abs Immat Gran (auto) 0.05 H (0.00-0.031) K/mm3 Absolute Neuts (auto) 3.2 (1.3-6.7) K/mm3 Absolute Nucleated RBC 0.000 (0.0-0.012) K/mm3 Band Neutrophils % Nucleated RBC % 0.0 (0.0-0.2) % Platelet Estimate (Adequate) Hypochromasia Macrocytosis (NORMAL) Schistocytes Sodium 139 (137-145) mmol/L Potassium 4.1 (3.4-5.0) mmol/L Chloride 104 (98-107) mmol/L Carbon Dioxide 29 (22-30) mmol/L Anion Gap 6 (4-12) mmol/L BUN 12 (7-17) mg/dL Creatinine 0.77 (0.7-1.0) mg/dL Estim Creat Clear Calc 106 ml/min Estimated GFR > 60 (59 - ) Glucose 103 (65-110) mg/dL Calcium 9.1 (8.4-10.2) mg/dL Total Bilirubin 0.4 (0.2-1.3) mg/dL AST 28 (14-36) U/L ALT 16 (6-35) U/L Alkaline Phosphatase 64 (38-126) U/L Total Protein 7.0 (6.3-8.2) g/dL Albumin 4.0 (3.5-5.1) g/dL POC Urine HCG, Qual Negative (Negative) 10/24/24 10/25/24 10/26/24 Range/Units 09:04 06:08 06:57 WBC 7.6 6.7 5.1 (4.5-10.0) K/mm3 RBC 3.05 L 2.91 L 2.94 L (4.2-5.4) M/mm3 Hgb 10.4 L 10.0 L 10.0 L (12.0-15.0) g/dL Hct 33.7 L 31.9 L 31.8 L (37.0-47.0) % MCV 110.5 H 109.6 H 108.2 H (80-100) fl MCH 34.1 H 34.4 H 34.0 (26-34) pg MCHC 30.9 L 31.3 L 31.4 L (32-36) g/dl RDW 13.2 12.8 12.4 (11.5-14.5) % Plt Count 322 310 304 (150-375) k/mm3 MPV 8.9 9.2 8.7 (7.4-10.4) fl Immature Gran % (Auto) 0.5 0.3 0.2 (0-0.5) % Neut % (Auto) 47.5 55.6 42.7 L (45.5-73.1) % Lymph % (Auto) 34.2 31.9 43.2 (18.3-44.2) % Larue % (Auto) 8.4 7.3 8.4 (2.6-8.5) % Eos % (Auto) 8.7 H 4.6 H 4.9 H (0-4.4) % Baso % (Auto) 0.7 0.3 0.6 (0.2-1.2) % Lymph # (Auto) 2.59 2.15 2.20 (0.9-3.2) K/mm3 Larue # (Auto) 0.6 0.5 0.4 (0.1-0.6) K/mm3 Eos # (Auto) 0.7 H 0.3 0.3 (0-0.3) K/mm3 Baso # (Auto) 0.1 0.0 0.0 (0.0-0.1) K/mm3 Abs Immat Gran (auto) 0.04 H 0.02 0.01 (0.00-0.031) K/mm3 Absolute Neuts (auto) 3.6 3.7 2.2 (1.3-6.7) K/mm3 Absolute Nucleated RBC 0.000 0.000 0.000 (0.0-0.012) K/mm3 Band Neutrophils % Not Reportable Not Reportable Not Reportable Nucleated RBC % 0.0 0.0 0.0 (0.0-0.2) % Platelet Estimate Adequate Adequate Adequate (Adequate) Hypochromasia 1+ Macrocytosis 1+ 1+ (NORMAL) Schistocytes None seen None seen None seen Sodium 139 139 138 (137-145) mmol/L Potassium 3.8 3.9 3.8 (3.4-5.0) mmol/L Chloride 104 105 105 (98-107) mmol/L Carbon Dioxide 31 H 29 26 (22-30) mmol/L Anion Gap 4 5 7 (4-12) mmol/L BUN 10 8 8 (7-17) mg/dL Creatinine 0.58 L 0.63 L 0.66 L (0.7-1.0) mg/dL Estim Creat Clear Calc 141 131 126 ml/min Estimated GFR > 60 > 60 > 60 (59 - ) Glucose 99 101 99 (65-110) mg/dL Calcium 8.5 9.0 8.8 (8.4-10.2) mg/dL Total Bilirubin 0.4 0.3 0.3 (0.2-1.3) mg/dL AST 26 24 25 (14-36) U/L ALT 14 13 13 (6-35) U/L Alkaline Phosphatase 69 69 65 (38-126) U/L Total Protein 7.0 6.5 6.6 (6.3-8.2) g/dL Albumin 4.0 3.6 3.7 (3.5-5.1) g/dL POC Urine HCG, Qual (Negative) Imaging Data Radiologist's impression: CT Stat Rad Neck Soft Tissue: Periodontal disease. Possible odontogenic cellulitis. No abscess seen. ECG Data EKG #1: Attestation: I personally reviewed and interpreted this ECG as follows: ECG completion date: 10/23/24 ECG completion time: 23:37 Interpretation: Normal sinus rhythm at a rate of 90 beats per minute. MO interval 152. QRS 102. QT/QTC 341/397. No T-wave inversions although there are flattening throughout. Discharge Plan Discharge Clinical Impression: Anemia, macrocytic, Abscess or cellulitis, oral soft tissue Patient Disposition: Still a Patient Condition: Stable Time of Disposition: 06:06
[2024-10-24 03:09] LABS: BEDSIDEPREGUCG Negative (Negative)
[2024-10-24] MEDS: HYDROmorphone HCL INJ (*CRX) 2 MG/ML VIAL 1 MG IV PUSH ×5 (03:21→23:12)
--- OUTSIDE RECORDS SUMMARY | 2024-10-24 03:26 | XMS_ITS | Encounter Summary ---
Author Organization [facility] Address [address] [facility] [place] [address] Phone Care Team Providers Care Infusion Rn Name Role Phone Jose Alfredo Burgos MD Primary Care Provider [phone] Latoya Conroy APRN, ORGANIC LAB WORKER Unavailable Michael Ibarra MD Unavailable [phone] Encounter Details Date Type Department Care Team (Late st Contact Info) Description 09/07/2023 Lab [facility]quisition [facility] [address] [place] [address] Madi Tabor, [facility] [address] [place] [address] Encounter for pre-employment examination Social [...] 0.12 <8.01 IU/mL 09/09/2023 10:31 AM CDT [facility] TB ANTIGEN 1 0.01 <0.35 IU/mL 09/09/2023 10:31 AM CDT [facility] TB ANTIGEN 2 0.01 <0.35 IU/mL 09/09/2023 10:31 AM CDT [facility] MITOGEN CONTROL 9.88 >0.49 IU/mL 09/09/19 10:31 AM CDT [facility] INTEPRETATION TB NEGATIVE NEGATIVE, NEGATIVE (TB antigen response less than 25% of internal negative control value) 09/09/2023 10:31 AM CDT [facility] Comment:No immune response t o Mycobacterium tuberculosis antigens was noted. M. tuberculosis infection unlikely. Blood No Phlebotomy Charged / Unknown 09/07/2023 10:05 AM CDT 09/07/2023 3:10 PM CDT Narrative [facility] - 09/09/2023 10:31 AM CDT A [...] individuals. https://www.cdc.gov/tb/publications/guidelines/testing.htm us Madi Tabor [facility] IMMUNOLOGY ORDERABLES Final Result [facility] [address] [place] [address], documented in this encounter Visit Diagnoses Diagnosis Encounter for pre-employment examination Health examination of defined subpopulation documented in this encounter Care Teams Infusion Rn Relationship Specialty Start Date End Date Jose Alfredo Burgos MD [address] [place] [address] [place] [address] PCP - General Family Medicine 09/16/23 Latoya Conroy APRN, [facility] [address] [place] [address] Nurse Practitioner Advanced Practice Nurse 12/22/23 Michael Ibarra MD [address] [facility] [address] [address] Consulting Physician General Surgery 06/07/24 documented as of this encounter
--- OUTSIDE RECORDS SUMMARY | 2024-10-24 03:26 | XMS_ITS | Clinical Summary ---
Author Organization [facility] Address [address] [place] [address] Phone Care Team Providers Care Business Services Vice President Name Role Phone Jose Alfredo Burgos MD Primary Care Provider [phone] Latoya Conroy APRN, CLEANING MANAGER Unavailable Michael Ibarra MD Unavailable [phone] Medications HYDROcodone-acet aminophen (NORCO) 5-325 MG Tablet [...] Department Care Team Description 08/20/2024 Transcribe Orders [facility] Central Scheduling [address] [place] [address] Michael Ibarra MD Nausea vomiting and diarrhea (Primary Dx) 08/08/2024 8:01 PM CDT - 08/09/2024 1:02 AM CDT [facility] [address] [place] [address] Franck Conner MD Generalized abdominal pain Discharge Disposition: Discharged to home or Selfcare 08/08/2024 Travel 08/08/2024 [facility] [address] [place] [address] Michael Ibarra MD Rectal Bleeding 08/04/2024 [facility]ill [facility] [address] [place] [address] Latoya Conroy APRN, CLEANING MANAGER Medication Refill from Last 3 Months Family [...] loops. No obvious wall thickening. Normal appendix. Espk-ar-rimyfqrp amount of stool volume is seen scattered [...] Prem Monge M.D. MF: LAKIA Report ID: [id number] Reading Location: [id number] Procedure Note Prem Monge, DO - 08/08/2024 [...] loops. No obvious wall thickening. Normal appendix. Wefp-pm-rqtdqcqv amount of stool volume is seen scattered [...] Prem Monge M.D. MF: LAKIA Report ID: [id number] Reading Location: [place] [address] IMPRESSION: 1. No acute intra-abdominal/pelvic abnormality. 2. Additional findings; as detailed. Franck Conner MD IMG CT ORDERABLES Final R esult * POCT Urine HCG () (08/08/2024 5:32 PM CDT) [facility] POC URINE Negative [facility] POC URINE CONTROL Color Specialist Pass [facility] Urine 08/08/2024 5:32 PM CDT Clovis Paz MD POINT OF CARE TESTING (MANUAL) F inal Result [facility] [address] [place] [address] * (ABNORMAL) Urinalysis w/ Reflex (08/08/2024 5:13 PM CDT) Pathologist [facility] SPECIFIC GRAVITY 1.015 1.003 - 1.030 08/08/2024 5:52 PM CDT [facility] URINE PH 6.5 5.0 - 9.0 08/08/2024 5:52 PM CDT [facility] WBC ESTERASE Negative Negative 08/08/2024 5:52 PM CDT [facility] NITRITE Negative Negative 08/08/2024 5:52 PM CDT [facility] PROTEIN, RANDOM URINE 30 mg/dL(A) Negative 08/08/2024 5:52 PM CDT [facility] URINE GLUCOSE, QUAL Negative Negative 08/08/2024 5:52 PM CDT [facility] URINE KETONES Negative Negative 08/08/2024 5:52 PM CDT [facility] UROBILINOGEN Normal Normal mg/dL 08/08/2024 5:52 PM CDT [facility] URINE BLOOD Negative Negative javier/ul 08/08/2024 5:52 PM CDT [facility] URINALYSIS COLOR Yellow 08/09/19 5:52 PM CDT [facility] URINALYSIS CLARITY Clear 08/08/2024 5:52 PM CDT [facility] WBC (Urine) 0-5 Negative, 0-5 /hpf 08/08/2024 5:52 PM CDT [facility] URINE RBC'S Negative Negative, 0-2 /hpf 08/08/2024 5:52 PM CDT [facility] EPITHELIAL CELLS Moderate amount /lpf 08/08/2024 5:52 PM CDT [facility] BACTERIA, URINE Few(A) Negative /hpf 08/08/2024 5:52 PM CDT [facility] Urine URINE SPECIMEN / Unknown Non-Phlebotomy Collection / Unknown 08/08/2024 5:13 PM CDT 08/08/2024 5:34 PM CDT us Clovis Paz MD URINE ORDERABLES Final Result [facility] [address] [place] [address] * (ABNORMAL) Urine Drug Screen (08/08/2024 5:13 PM CDT) UR AMPHETAMINE NON DETECTED NON DETECTED 08/09/2024 12:01 AM CDT [facility] UR BENZODIAZEPINES NON DETECTED NON DETECTED 08/09/2024 12:01 AM CDT [facility] UR COCAINE METABOLITE NON DETECTED NON DETECTED 08/09/2024 12:01 AM CDT [facility] UR OPIATES NON DETECTED NON DETECTED 08/09/2024 12:01 AM CDT [facility] UR PHENCYCLIDINE NON DETECTED NON DETECTED 08/09/2024 12:01 AM CDT [facility] UR CANNABINOID DETECTED(A) NON DETECTED 08/09/2024 12:01 AM CDT [facility] UR BARBITURATE NON DETECTED NON DETECTED 08/09/2024 12:01 AM CDT [facility] UR FENTANYL NON DETECTED NON DETECTED 08/09/2024 12:01 AM CDT [facility] Urine URINE SPECIMEN / Unknown Non-Phlebotomy Collection / Unknown 08/08/2024 5:13 PM CDT 08/08/2024 5:34 PM CDT us Franck Conner MD URINE ORDERABLES Final Re sult [facility] [address] [place] [address] * (ABNORMAL) CBC with Auto Differential (08/08/2024 4:53 PM CDT) WBC 8.60 4.00 - 12.00 10(3)/mcL 08/08/2024 5:57 PM CDT [facility] RBC 3.21(L) 3.80 - 5.30 10(6)/mcL 08/08/2024 5:57 PM CDT [facility] HEMOGLOBIN (HGB) 11.0(L) 12.0 - 15.8 g/dL 08/08/2024 5:57 PM CDT [facility] HEMATOCRIT (HCT) 35.4(L) 36.0 - 47.0 % 08/08/2024 5:57 PM CDT [facility] MCV 110.3(H) 82.0 - 96.0 fL 08/08/2024 5:57 PM CDT [facility] MCH 34.3(H) 26.0 - 34.0 pg 08/08/2024 5:57 PM CDT [facility] MCHC 31.1 31.0 - 36.0 g/dL 08/08/2024 5:57 PM CDT [facility] PLATELET COUNT 360 140 - 440 10(3)/[facility] 08/08/2024 5:57 PM CDT [facility] RDW 12.8 11.8 - 15.5 % 08/08/2024 5:57 PM CDT [facility] MPV 9.6(L) 9.7 - 12.4 fL 08/08/2024 5:57 PM CDT [facility] NEUTROPHILS 49.4 47.0 - 73.0 % 08/08/2024 5:57 PM CDT [facility] LYMPHOCYTES 36.4 18.0 - 42.0 % 08/08/2024 5:57 PM CDT [facility] MONOCYTES 7.6 4.0 - 12.0 % 08/08/2024 5:57 PM CDT [facility] EOSINOPHILS 6.0(H) 0.0 - 5.0 % 08/08/2024 5:57 PM CDT [facility] BASOPHILS 0.6 0.0 - 1.0 % 08/08/2024 5:57 PM CDT [facility] ABSOLUTE NEUTROPHILS 4.25 1.60 - 7.70 10(3)/mcL 08/08/2024 5:57 PM CDT [facility] ABSOLUTE LYMPHOCYTES 3.13 1.30 - 3.20 10(3)/mcL 08/08/2024 5:57 PM CDT [facility] ABSOLUTE MONOCYTES 0.65 0.20 - 1.00 10(3)/mcL 08/08/2024 5:57 PM CDT [facility] ABSOLUTE EOSINOPHIL 0.52(H) 0.00 - 0.40 10(3)/mcL 08/08/2024 5:57 PM CDT [facility] ABSOLUTE BASOPHILS 0.05 0.00 - 0.10 10(3)/mcL 08/08/2024 5:57 PM CDT [facility] NRBC PER 100 WBC 0 08/09/19 5:57 PM CDT [facility] RESULTS ARE CONSISTENT WITH PERIPHERAL SMEAR REVIEW Yes 08/08/2024 5:57 PM CDT [facility] RBC MORPHOLOGY CONSISTENT WITH INDICES Yes 08/08/2024 5:57 PM CDT [facility] Blood Venipuncture / Unknown 08/08/2024 4:53 PM CDT 08/08/2024 5:17 PM CDT us Clovis Paz MD HEMATOLOGY ORDERABLES Final Resu lt Performing Organization Address City/[facility]/ZIP Co de Phone Number [facility] [address] [place] [address] * Lipase (08/08/2024 4:53 PM CDT) LIPASE 28 8 - 78 U/L 08/08/2024 5:40 PM CDT [facility] Blood Venipuncture / Unknown 08/08/2024 4:53 PM CDT 08/08/2024 5:17 PM CDT Clovis Paz MD CHEMISTRY ORDERABLES Final Resul t Performing Organization Address City/[facility]/ZIP Co de Phone Number [facility] [address] [place] [address] * CMP (08/08/2024 4:53 PM CDT) SODIUM 139 136 - 145 mmol/L 08/08/2024 5:40 PM CDT [facility] POTASSIUM 4.1 3.5 - 5.1 mmol/L 08/08/2024 5:40 PM CDT [facility] CHLORIDE 106 98 - 107 mmol/L 08/08/2024 5:40 PM CDT [facility] CO2, VENOUS 24 22 - 30 mmol/L 08/08/2024 5:40 PM CDT [facility] ANION GAP 13.1 <18.0 mmol/L 08/08/2024 5:40 PM CDT [facility] GLUCOSE 77 70 - 99 mg/dL 08/08/2024 5:40 PM CDT [facility] BUN 16 5 - 18 mg/dL 08/08/2024 5:40 PM CDT [facility] CREATININE, BLOOD 0.91 0.60 - 1.00 mg/dL 08/08/2024 5:40 PM CDT [facility] BUN/CREATININE RATIO 18 12 - 20 ratio 08/08/2024 5:40 PM CDT [facility] TOTAL PROTEIN 7.0 6.0 - 8.0 g/dL 08/08/2024 5:40 PM CDT [facility] ALBUMIN 3.9 3.5 - 5.0 g/dL 08/08/2024 5:40 PM CDT [facility] A/G RATIO 1.3 1.0 - 2.2 08/08/2024 5:40 PM CDT [facility] CALCIUM 8.7 8.7 - 10.5 mg/dL 08/08/2024 5:40 PM CDT [facility] T BILI 0.3 0.2 - 1.2 mg/dL 08/08/2024 5:40 PM CDT [facility] SGOT (AST) 17 <43 U/L 08/08/2024 5:40 PM CDT [facility] SGPT (ALT) 13 <56 U/L 08/08/2024 5:40 PM CDT [facility] ALKALINE PHOSPHATASE 74 40 - 150 U/L 08/08/2024 5:40 PM CDT [facility] GFR, ESTIMATED >60 >=60 08/08/2024 5:40 PM CDT [facility] Comment: Creatinine Clearance is the preferred criteria for selecting drug dose adjustments in renally impaired patients. The GFR is provided as additional pertinent clinical information. GFR is reported in mL/min/1.73 sq m. Calculation based on the Chronic Kidney Disease Epidemiology Collaboration (CKD- EPI) equation refit without adjustment for race. GFR, EST. >60 >=60 025 5:40 PM CDT [facility] GFR, EST. NONAFRICAN >60 >=60 08/08/2024 5:40 PM CDT [facility] Blood Venipuncture / Unknown 08/08/2024 4:53 PM CDT 08/08/2024 5:17 PM CDT us Clovis Paz MD CHEMISTRY ORDERABLES Final Resul t [facility] [address] [place] [address] from Last 3 Months Insurance MEDICAID [place] * Guarantor: [facility] Account Type Relation to Patient Date of Phone Billing Address Institutional Other [address] [place] [address] Care Teams Business Services Vice President Relationship Specialty Start Date End Date Jose Alfredo Burgos MD [address] [facility] [address] PCP - General Family Medicine 09/16/23 Latoya Conroy APRN, CLEANING MANAGER [address] [place] [address] Nurse Practitioner Advanced Practice Nurse 12/22/23 Michael Ibarra MD [address] [address] Consulting Physician General Surgery 06/07/24
--- OUTSIDE RECORDS SUMMARY | 2024-10-24 03:26 | XMS_ITS | Clinical Summary ---
Author Organization [facility] Address [address] [place] [address] Care Team Providers Care Child Support Specialist Name Role Phone Jose Alfredo Burgos MD Primary Care Provider [phone] Allergies No known active allergies Medications dextroamphetam [...] CDT - 09/26/2024 10:59 AM CDT Emergency [facility] Emergency Department [address] [place] [address] Saba Montano MD Pain due to dental caries (Primary Dx); Joint swelling Discharge Disposition: Discharge to home or self care 08/11/2024 10:24 AM CDT - 08/11/2024 10:48 AM CDT Emergency [facility] Emergency Department [address] [place] [address] Dari Kevin MD Encounter for medication refill [...] on file Legal Sex Female 4:35 PM [employer] Gender Identity Not on file Sexual Orientation [...] Shantell Londono M.D. FT: FT Report ID: [id number] Reading Location: [id number] Procedure Note Shantell Valle MD - 09/26/2024 [...] Shantell Londono M.D. FT: FT Report ID: [id number] Reading Location: [id number] Saba Montano MD IMG XR PROCEDURES F inal Result from Last 3 Months Insurance [facility] Care Teams Child Support Specialist Relationship Specialty Start Date End Date Jose Alfredo Burgos MD [address] [place] [address] [address] [place] [address] PCP - General Family Medicine 10/14/23
--- OUTSIDE RECORDS SUMMARY | 2024-10-24 03:26 | XMS_ITS | Encounter Summary ---
Author Organization [facility] Address [address] [place] [address] Phone Care Team Providers Care White Metal Corrosion Proofer Name Role Phone Jose Alfredo Burgos MD Primary Care Provider [phone] Latoya Conroy APRN, HISTOLOGY SUPERVISOR Unavailable Michael Ibarra MD Unavailable [phone] Reason for Visit * Reason Comments Medication Refill Encounter Details Date Type Department Care Team (Late st Contact Info) Description 08/04/2024 Refill [facility] - Gastroenterology - [place] [address] [place] [address] Latoya Conroy APRN, HISTOLOGY SUPERVISOR [address] [place] [address] Medication Refill Social History Tobacco Use Types [...] AM CDT Medication refilled and signed per [facility] chronic medication standing order for pediatric and adult patients. documented in this encounter Plan of Treatment Not on file documented as of this encounter Visit Diagnoses Diagnosis Pain of upper abdomen Abdominal pain, other specified site documented in this encounter Care Teams White Metal Corrosion Proofer Relationship Specialty Start Date End Date Jose Alfredo Burgos MD [address] [place] [address] PCP - General Family Medicine 09/16/23 Latoya Conroy APRN, HISTOLOGY SUPERVISOR [address] [place] [address] Nurse Practitioner Advanced Practice Nurse 12/22/23 Michael Ibarra MD 2 [facility] VICKI WEINSTEIN [address] [address] Consulting Physician General Surgery 06/07/24 documented as of this encounter
--- OUTSIDE RECORDS SUMMARY | 2024-10-24 03:26 | XMS_ITS | Encounter Summary ---
Author Organization [facility] Address [address] [place] [address] Phone Care Team Providers Care Portable Track Crew Chief Name Role Phone Jose Alfredo Burgos MD Primary Care Provider [phone] Latoya Conroy APRN, VEGETABLE BUNCHER Unavailable Michael Ibarra MD Unavailable [phone] Reason for Visit * Reason Comments Medication Refill Encounter Details Date Type Department Care Team (Late st Contact Info) Description 04/13/2024 Refill [facility] - Gastroenterology - [place] [address] [place] [address] Latoya Conroy APRN, VEGETABLE BUNCHER [address] [place] [address] Medication Refill Social History Tobacco Use Types [...] Tete Jean RN - 04/13/2024 8:08 AM COKE LOADER Medication refilled and signed per [facility] chronic medication standing order for pediatric and adult patients. LOADER documented in this encounter Plan of Treatment Not on file documented as of this encounter Visit Diagnoses Diagnosis Pain of upper abdomen Abdominal pain, other specified site documented in this encounter Care Teams Portable Track Crew Chief Relationship Specialty Start Date End Date Jose Alfredo Burgos MD [address] [place] [address] PCP - General Family Medicine 09/16/23 Latoya Conroy APRN, VEGETABLE BUNCHER [address] [facility] [place] [address] Nurse Practitioner Advanced Practice Nurse 12/22/23 Michael Ibarra MD 2 VICKI WEINSTEIN [address] [address] Consulting Physician General Surgery 06/07/24 documented as of this encounter
--- OUTSIDE RECORDS SUMMARY | 2024-10-24 03:26 | XMS_ITS ---
Author Organization [facility] Address [address] [place] [address] Phone Care Team Providers Care Diesel Mechanic Helper Name Role Phone Jose Alfredo Burgos MD Primary Care Provider [phone] Latoya Conroy APRN, PAPER CARRIER Unavailable Michael Ibarra MD Unavailable [phone] [facility] Status:Enrolled (Active) Start date:06/20/2024 Enrollment date:06/20/2024 Related social drivers of health:Intimate Partner Violence, Social Connections, Alcohol Use, Tobacco Use, Financial Resource Strain,Depression, Stress, Physical Activity, Food Insecurity, Transportation Needs, Housing Stability, Utilities Continued Care and Services Coordination
--- OUTSIDE RECORDS SUMMARY | 2024-10-24 03:26 | XMS_ITS | Referral Summary ---
Author Organization [facility] Address [address] [place] [address] Care Team Providers Care Flatwork Catcher Name Role Phone Jose Alfredo Burgos MD Primary Care Provider [phone] Encounters Date Type Department Care Team Description 09/26/2024 9:05 AM CDT - 09/26/2024 10:59 AM CDT Emergency [facility] Emergency Department [address] [place] [address] Saba Montano MD Pain due to dental caries (Primary Dx); Joint swelling Discharge Disposition: Discharge to home or self care 08/11/2024 10:24 AM CDT - 08/11/2024 10:48 AM CDT Emergency [facility] Emergency Department [address] [place] [address] Dari Kevin MD Encounter for medication refill [...] on file 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 FT: FT Report ID: [id number] Reading Location: [id number] Procedure Note Shantell Valle MD - 09/26/2024 [...] Shantell Londono M.D. FT: FT Report ID: [id number] Reading Location: [id number] Saba Montano MD IMG XR PROCEDURES F inal Result from Last 3 Months Insurance [facility] Care Teams Flatwork Catcher Relationship Specialty Start Date End Date Jose Alfredo Burgos MD [address] [place] [address] DR HELMS [address] [place] [address] PCP - General Family Medicine 10/14/23
[2024-10-24] MEDS: SODIUM CHLORIDE 0.9% IV 1,000 ML 999 ML IV CONT (06:09)
--- OUTSIDE RECORDS SUMMARY | 2024-10-24 06:45 | XMS_ITS | Encounter Summary ---
Author Organization [facility] Address [address] [place] [address] Phone Care Team Providers Care Intermodal Owner Operator Truck Driver Name Role Phone Jose Alfredo Burgos MD Primary Care Provider [phone] Latoya Conroy APRN, EDGE BASTER Unavailable Michael Ibarra MD Unavailable [phone] Reason for Visit * Reason Comments Medication Refill Encounter Details Date Type Department Care Team (Late st Contact Info) Description 04/13/2024 Refill [facility] - Gastroenterology - [place] [address] [place] [address] Latoya Conroy APRN, EDGE BASTER [address] [place] [address] Medication Refill Social History Tobacco Use Types [...] Tete Jean RN - 04/13/2024 8:08 AM FIREPOT OPERATOR AND TENDER Medication refilled and signed per [facility] chronic medication standing order for pediatric and adult patients. POT OPERATOR AND TENDER documented in this encounter Plan of Treatment Not on file documented as of this encounter Visit Diagnoses Diagnosis Pain of upper abdomen Abdominal pain, other specified site documented in this encounter Care Teams Intermodal Owner Operator Truck Driver Relationship Specialty Start Date End Date Jose Alfredo Burgos MD [address] [place] [address] PCP - General Family Medicine 09/16/23 Latoya Conroy APRN, EDGE BASTER [address] [facility] [address] Nurse Practitioner Advanced Practice Nurse 12/22/23 Michael Ibarra MD 2 VICKI WEINSTEIN [address] [address] Consulting Physician General Surgery 06/07/24 documented as of this encounter
--- OUTSIDE RECORDS SUMMARY | 2024-10-24 06:45 | XMS_ITS | Encounter Summary ---
Author Organization [facility] Address [address] [facility] [place] [address] Phone Care Team Providers Care Epic Application Coordinator Name Role Phone Jose Alfredo Burgos MD Primary Care Provider [phone] Latoya Conroy APRN, AUTOMATIC PUNCH PRESS OPERATOR Unavailable Michael Ibarra MD Unavailable [phone] Encounter Details Date Type Department Care Team (Late st Contact Info) Description 09/07/2023 Lab Requisition [facility] [address] [place] [address] Madi Tabor, [facility] [address] [place] [address] Encounter for pre-employment examination Social [...] <8.01 IU/mL 09/09/2023 10:31 AM CDT [facility] TB ANTIGEN 1 0.01 <0.35 IU/mL 09/09/2023 10:31 AM CDT [facility] TB ANTIGEN 2 0.01 <0.35 IU/mL 09/09/2023 10:31 AM CDT [facility] MITOGEN CONTROL 9.88 >0.49 IU/mL 09/09/19 10:31 AM CDT [facility] INTEPRETATION TB NEGATIVE NEGATIVE, NEGATIVE (TB antigen response less than 25% of internal negative control value) 09/09/2023 10:31 AM CDT [facility] Comment:No immune response t o Mycobacterium tuberculosis antigens was noted. M. tuberculosis infection unlikely. Blood No Phlebotomy Charged / Unknown 09/07/2023 10:05 AM CDT 09/07/2023 3:10 PM CDT Narrative [facility] - 09/09/2023 10:31 AM CDT [...] otherwise immunocompromised individuals. https://www.cdc.gov/tb/publications/guidelines/testing.htm us Madi Tabor [facility] IMMUNOLOGY ORDERABLES Final Result [facility] [address] [place] [address], documented in this encounter Visit Diagnoses Diagnosis Encounter for pre-employment examination Health examination of defined subpopulation documented in this encounter Care Teams Epic Application Coordinator Relationship Specialty Start Date End Date Jose Alfredo Burgos MD [address] [place] [address] [place] [address] PCP - General Family Medicine 09/16/23 Latoya Conroy APRN, RIC [address] [place] [address] Nurse Practitioner Advanced Practice Nurse 12/22/23 Michael Ibarra MD 2 [facility] [address] [address] Consulting Physician General Surgery 06/07/24 documented as of this encounter
--- OUTSIDE RECORDS SUMMARY | 2024-10-24 06:45 | XMS_ITS ---
Author Organization [facility] Address [address] [place] [address] Phone Care Team Providers Care Tassel Snipper Name Role Phone Jose Alfredo Burgos MD Primary Care Provider [phone] Latoya Conroy APRN, PACKAGING SUPERVISOR Unavailable Michael Ibarra MD Unavailable [phone] [facility] Status:Enrolled (Active) Start date:06/20/2024 Enrollment date:06/20/2024 Related social drivers of health:Intimate Partner Violence, Social Connections, Alcohol Use, Tobacco Use, Financial Resource Strain,Depression, Stress, Physical Activity, Food Insecurity, Transportation Needs, Housing Stability, Utilities Continued Care and Services Coordination
--- OUTSIDE RECORDS SUMMARY | 2024-10-24 06:45 | XMS_ITS | Clinical Summary ---
Author Organization [facility] Address [address] [place] [address] Care Team Providers Care Head Of Talent Management Name Role Phone Jose Alfredo Burgos MD Primary Care Provider [phone] Allergies No known active allergies Medications dextroamphetam [...] CDT - 09/26/2024 10:59 AM CDT Emergency [facility] Emergency Department [address] [place] [address] Saba Montano MD Pain due to dental caries (Primary Dx); Joint swelling Discharge Disposition: Discharge to home or self care 08/11/2024 10:24 AM CDT - 08/11/2024 10:48 AM CDT Emergency [facility] Emergency Department [address] [place] [address] Dari Kevin MD Encounter for medication refill [...] on file 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 FT: FT Report ID: [id number] Reading Location: [id number] Procedure Note Shantell Valle MD - 09/26/2024 [...] Shantell Londono M.D. FT: FT Report ID: [id number] Reading Location: [id number] Saba Montano MD IMG XR PROCEDURES F inal Result from Last 3 Months Insurance [facility] Care Teams Head Of Talent Management Relationship Specialty Start Date End Date Jose Alfredo Burgos MD [address] [place] [address] [address] [place] [address] PCP - General Family Medicine 10/14/23
--- OUTSIDE RECORDS SUMMARY | 2024-10-24 06:45 | XMS_ITS | Encounter Summary ---
Author Organization [facility] Address [address] [place] [address] Phone Care Team Providers Care Wellness Program Coordinator Name Role Phone Jose Alfredo Burgos MD Primary Care Provider [phone] Latoya Conroy APRN, SPACE SYSTEMS OPERATIONS MANAGER Unavailable Michael Ibarra MD Unavailable [phone] Reason for Visit * Reason Comments Medication Refill Encounter Details Date Type Department Care Team (Late st Contact Info) Description 08/04/2024 Refill [facility] - Gastroenterology - [place] [address] [place] [address] Latoya Conroy APRN, SPACE SYSTEMS OPERATIONS MANAGER [address] [place] [address] Medication Refill Social History Tobacco Use Types [...] AM CDT Medication [facility]illed and signed [facility] chronic medication standing order for pediatric and adult patients. documented in this encounter Plan of Treatment Not on file documented as of this encounter Visit Diagnoses Diagnosis Pain of upper abdomen Abdominal pain, other specified site documented in this encounter Care Teams Wellness Program Coordinator Relationship Specialty Start Date End Date Jose Alfredo Burgos MD [address] [place] [address] PCP - General Family Medicine 09/16/23 Latoya Conroy APRN, SPACE SYSTEMS OPERATIONS MANAGER [address] [place] [address] Nurse Practitioner Advanced Practice Nurse 12/22/23 Michael Ibarra MD 2 [facility] VICKI WEINSTEIN [address] [address] Consulting Physician General Surgery 06/07/24 documented as of this encounter
--- OUTSIDE RECORDS SUMMARY | 2024-10-24 06:45 | XMS_ITS | Referral Summary ---
Author Organization [facility] Address [address] [place] [address] Care Team Providers Care Peoplesoft Hr Developer Name Role Phone Jose Alfredo Burgos MD Primary Care Provider [phone] Encounters Date Type Department Care Team Description 09/26/2024 9:05 AM CDT - 09/26/2024 10:59 AM CDT Emergency [facility] Emergency Department [address] [place] [address] Saba Montano MD Pain due to dental caries (Primary Dx); Joint swelling Discharge Disposition: Discharge to home or self care 08/11/2024 10:24 AM CDT - 08/11/2024 10:48 AM CDT Emergency [facility] Emergency Department [address] [place] [address] Dari Kevin MD Encounter for medication refill [...] on file 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 FT: FT Report ID: [id number] Reading Location: [id number] Procedure Note Shantell Valle MD - 09/26/2024 [...] Shantell Londono M.D. FT: FT Report ID: [id number] Reading Location: [id number] Saba Montano MD IMG XR PROCEDURES F inal Result from Last 3 Months Insurance [facility] Care Teams Peoplesoft Hr Developer Relationship Specialty Start Date End Date Jose Alfredo Burgos MD [address] [place] [address] DR HELMS [address] [place] [address] PCP - General Family Medicine 10/14/23
--- OUTSIDE RECORDS SUMMARY | 2024-10-24 06:45 | XMS_ITS | Clinical Summary ---
Author Organization [facility] Address [address] [place] [address] Phone Care Team Providers Care Radio Assembler Name Role Phone Jose Alfredo Burgos MD Primary Care Provider [phone] Latoya Conroy APRN, OFFICE MACHINES WIRER Unavailable Michael Ibarra MD Unavailable [phone] Medications HYDROcodone-acet aminophen (NORCO) 5-325 MG Tablet [...] Department Care Team Description 08/20/2024 Transcribe Orders [facility] Central Scheduling [address] [place] [address] Michael Ibarra MD Nausea vomiting and diarrhea (Primary Dx) 08/08/2024 8:01 PM CDT - 08/09/2024 1:02 AM CDT Emergency [facility] Emergency [address] [place] [address] Franck Conner MD Generalized abdominal pain Discharge Disposition: Discharged to home or Selfcare 08/08/2024 Travel 08/08/2024 [facility] [place] [address] Michael Ibarra MD Rectal Bleeding 08/04/2024 [facility]ill [facility] [address] [place] [address] Latoya Conroy APRN, OFFICE MACHINES WIRER Medication Refill from Last 3 Months Family [...] loops. No obvious wall thickening. Normal appendix. Fnws-vw-fkodutpi amount of stool volume is seen scattered [...] Prem Monge M.D. MF: LAKIA Report ID: [id number] Reading Location: [id number] Procedure Note Prem Monge, DO - 08/08/2024 [...] loops. No obvious wall thickening. Normal appendix. Dbsl-dl-hdxiuerm amount of stool volume is seen scattered [...] Prem Monge M.D. MF: LAKIA Report ID: [id number] Reading Location: [place] [address] IMPRESSION: 1. No acute intra-abdominal/pelvic abnormality. 2. Additional findings; as detailed. Franck Conner MD IMG CT ORDERABLES Final R esult * POCT Urine HCG () (08/08/2024 5:32 PM CDT) [facility] POC URINE Negative [facility] POC URINE CONTROL Automation Machine Builder Pass [facility] Urine 08/08/2024 5:32 PM CDT Clovis Paz MD POINT OF CARE TESTING (MANUAL) F inal Result [facility] [address] [place] [address] * (ABNORMAL) Urinalysis w/ Reflex (08/08/2024 5:13 PM CDT) Pathologist [facility] SPECIFIC GRAVITY 1.015 1.003 - 1.030 08/08/2024 5:52 PM CDT [facility] URINE PH 6.5 5.0 - 9.0 08/08/2024 5:52 PM CDT [facility] WBC ESTERASE Negative Negative 08/08/2024 5:52 PM CDT [facility] NITRITE Negative Negative 08/08/2024 5:52 PM CDT [facility] PROTEIN, RANDOM URINE 30 mg/dL(A) Negative 08/08/2024 5:52 PM CDT [facility] URINE GLUCOSE, QUAL Negative Negative 08/08/2024 5:52 PM CDT [facility] URINE KETONES Negative Negative 08/08/2024 5:52 PM CDT [facility] UROBILINOGEN Normal Normal mg/dL 08/08/2024 5:52 PM CDT [facility] URINE BLOOD Negative Negative javier/ul 08/08/2024 5:52 PM CDT [facility] URINALYSIS COLOR Yellow 08/09/19 5:52 PM CDT [facility] URINALYSIS CLARITY Clear 08/08/2024 5:52 PM CDT [facility] WBC (Urine) 0-5 Negative, 0-5 /hpf 08/08/2024 5:52 PM CDT [facility] URINE RBC'S Negative Negative, 0-2 /hpf 08/08/2024 5:52 PM CDT [facility] EPITHELIAL CELLS Moderate amount /lpf 08/08/2024 5:52 PM CDT [facility] BACTERIA, URINE Few(A) Negative /hpf 08/08/2024 5:52 PM CDT [facility] Urine URINE SPECIMEN / Unknown Non-Phlebotomy Collection / Unknown 08/08/2024 5:13 PM CDT 08/08/2024 5:34 PM CDT us Clovis Paz MD URINE ORDERABLES Final Result [facility] [address] [place] [address] * (ABNORMAL) Urine Drug Screen (08/08/2024 5:13 PM CDT) UR AMPHETAMINE NON DETECTED NON DETECTED 08/09/2024 12:01 AM CDT [facility] UR BENZODIAZEPINES NON DETECTED NON DETECTED 08/09/2024 12:01 AM CDT [facility] UR COCAINE METABOLITE NON DETECTED NON DETECTED 08/09/2024 12:01 AM CDT [facility] UR OPIATES NON DETECTED NON DETECTED 08/09/2024 12:01 AM CDT [facility] UR PHENCYCLIDINE NON DETECTED NON DETECTED 08/09/2024 12:01 AM CDT [facility] UR CANNABINOID DETECTED(A) NON DETECTED 08/09/2024 12:01 AM CDT [facility] UR BARBITURATE NON DETECTED NON DETECTED 08/09/2024 12:01 AM CDT [facility] UR FENTANYL NON DETECTED NON DETECTED 08/09/2024 12:01 AM CDT [facility] Urine URINE SPECIMEN / Unknown Non-Phlebotomy Collection / Unknown 08/08/2024 5:13 PM CDT 08/08/2024 5:34 PM CDT us Franck Conner MD URINE ORDERABLES Final Re sult [facility] [address] [place] [address] * (ABNORMAL) CBC with Auto Differential (08/08/2024 4:53 PM CDT) WBC 8.60 4.00 - 12.00 10(3)/mcL 08/08/2024 5:57 PM CDT [facility] RBC 3.21(L) 3.80 - 5.30 10(6)/mcL 08/08/2024 5:57 PM CDT [facility] HEMOGLOBIN (HGB) 11.0(L) 12.0 - 15.8 g/dL 08/08/2024 5:57 PM CDT [facility] HEMATOCRIT (HCT) 35.4(L) 36.0 - 47.0 % 08/08/2024 5:57 PM CDT [facility] MCV 110.3(H) 82.0 - 96.0 fL 08/08/2024 5:57 PM CDT [facility] MCH 34.3(H) 26.0 - 34.0 pg 08/08/2024 5:57 PM CDT [facility] MCHC 31.1 31.0 - 36.0 g/dL 08/08/2024 5:57 PM CDT [facility] PLATELET COUNT 360 140 - 440 10(3)/[facility] 08/08/2024 5:57 PM CDT [facility] RDW 12.8 11.8 - 15.5 % 08/08/2024 5:57 PM CDT [facility] MPV 9.6(L) 9.7 - 12.4 fL 08/08/2024 5:57 PM CDT [facility] NEUTROPHILS 49.4 47.0 - 73.0 % 08/08/2024 5:57 PM CDT [facility] LYMPHOCYTES 36.4 18.0 - 42.0 % 08/08/2024 5:57 PM CDT [facility] MONOCYTES 7.6 4.0 - 12.0 % 08/08/2024 5:57 PM CDT [facility] EOSINOPHILS 6.0(H) 0.0 - 5.0 % 08/08/2024 5:57 PM CDT [facility] BASOPHILS 0.6 0.0 - 1.0 % 08/08/2024 5:57 PM CDT [facility] ABSOLUTE NEUTROPHILS 4.25 1.60 - 7.70 10(3)/mcL 08/08/2024 5:57 PM CDT [facility] ABSOLUTE LYMPHOCYTES 3.13 1.30 - 3.20 10(3)/mcL 08/08/2024 5:57 PM CDT [facility] ABSOLUTE MONOCYTES 0.65 0.20 - 1.00 10(3)/mcL 08/08/2024 5:57 PM CDT [facility] ABSOLUTE EOSINOPHIL 0.52(H) 0.00 - 0.40 10(3)/mcL 08/08/2024 5:57 PM CDT [facility] ABSOLUTE BASOPHILS 0.05 0.00 - 0.10 10(3)/mcL 08/08/2024 5:57 PM CDT [facility] NRBC PER 100 WBC 0 08/09/19 5:57 PM CDT [facility] RESULTS ARE CONSISTENT WITH PERIPHERAL SMEAR REVIEW Yes 08/08/2024 5:57 PM CDT [facility] RBC MORPHOLOGY CONSISTENT WITH INDICES Yes 08/08/2024 5:57 PM CDT [facility] Blood Venipuncture / Unknown 08/08/2024 4:53 PM CDT 08/08/2024 5:17 PM CDT us Clovis Paz MD HEMATOLOGY ORDERABLES Final Resu lt Performing Organization Address City/[facility]/ZIP Co de Phone Number [facility] [address] [place] [address] * Lipase (08/08/2024 4:53 PM CDT) LIPASE 28 8 - 78 U/L 08/08/2024 5:40 PM CDT [facility] Blood Venipuncture / Unknown 08/08/2024 4:53 PM CDT 08/08/2024 5:17 PM CDT Clovis Paz MD CHEMISTRY ORDERABLES Final Resul t Performing Organization Address City/[facility]/ZIP Co de Phone Number [facility] [address] [place] [address] * CMP (08/08/2024 4:53 PM CDT) SODIUM 139 136 - 145 mmol/L 08/08/2024 5:40 PM CDT [facility] POTASSIUM 4.1 3.5 - 5.1 mmol/L 08/08/2024 5:40 PM CDT [facility] CHLORIDE 106 98 - 107 mmol/L 08/08/2024 5:40 PM CDT [facility] CO2, VENOUS 24 22 - 30 mmol/L 08/08/2024 5:40 PM CDT [facility] ANION GAP 13.1 <18.0 mmol/L 08/08/2024 5:40 PM CDT [facility] GLUCOSE 77 70 - 99 mg/dL 08/08/2024 5:40 PM CDT [facility] BUN 16 5 - 18 mg/dL 08/08/2024 5:40 PM CDT [facility] CREATININE, BLOOD 0.91 0.60 - 1.00 mg/dL 08/08/2024 5:40 PM CDT [facility] BUN/CREATININE RATIO 18 12 - 20 ratio 08/08/2024 5:40 PM CDT [facility] TOTAL PROTEIN 7.0 6.0 - 8.0 g/dL 08/08/2024 5:40 PM CDT [facility] ALBUMIN 3.9 3.5 - 5.0 g/dL 08/08/2024 5:40 PM CDT [facility] A/G RATIO 1.3 1.0 - 2.2 08/08/2024 5:40 PM CDT [facility] CALCIUM 8.7 8.7 - 10.5 mg/dL 08/08/2024 5:40 PM CDT [facility] T BILI 0.3 0.2 - 1.2 mg/dL 08/08/2024 5:40 PM CDT [facility] SGOT (AST) 17 <43 U/L 08/08/2024 5:40 PM CDT [facility] SGPT (ALT) 13 <56 U/L 08/08/2024 5:40 PM CDT [facility] ALKALINE PHOSPHATASE 74 40 - 150 U/L 08/08/2024 5:40 PM CDT [facility] GFR, ESTIMATED >60 >=60 08/08/2024 5:40 PM CDT [facility] Comment: Creatinine Clearance is the preferred criteria for selecting drug dose adjustments in renally impaired patients. The GFR is provided as additional pertinent clinical information. GFR is reported in mL/min/1.73 sq m. Calculation based on the Chronic Kidney Disease Epidemiology Collaboration (CKD- EPI) equation refit without adjustment for race. GFR, EST. >60 >=60 025 5:40 PM CDT [facility] GFR, EST. NONAFRICAN >60 >=60 08/08/2024 5:40 PM CDT [facility] Blood Venipuncture / Unknown 08/08/2024 4:53 PM CDT 08/08/2024 5:17 PM CDT us Clovis Paz MD CHEMISTRY ORDERABLES Final Resul t [facility] [address] [place] [address] from Last 3 Months Insurance [place]ICA[place] * Guarantor: [facility] Account Type Relation to Patient Date of Phone Billing Address Institutional Other [address] [place] [address] Care Teams Radio Assembler Relationship Specialty Start Date End Date Jose Alfredo Burgos MD [address] [facility] [place] [address] PCP - General Family Medicine 09/16/23 Latoya Conroy APRN, OFFICE MACHINES WIRER [address] [place] [address] Nurse Practitioner Advanced Practice Nurse 12/22/23 Michael Ibarra MD [address] [address] Consulting Physician General Surgery 06/07/24
[2024-10-24] MEDS: AMPICILLIN SULB 3 GM/NS 100 ML 3 GM/100 ML VIAL IVPB ×3 (06:57→17:52)
--- NOTE | 2024-10-24 07:42 | PC.NURSE ---
pt had large emesis on floor - unable to get any emesis bag. Cleaned floor and stretcher of emesis. Pt was able to keep emesis off herself
[2024-10-24] MEDS: ONDANSETRON INJ 4 MG/2 ML VIAL IV PUSH (08:08)
--- NOTE | 2024-10-24 08:26 | ADMGEN ---
This patient, Danii Almendarez, was admitted to Virtual Bed 3rd Floor-1. Patient/family oriented to hospital policies and general routines including ID bracelet, bed and alarms, visiting hours, pain management, procedures, bathroom and other care routines, personal items, smoking policy, room service/diet, and visiting hours. Information on how to activate the Rapid Response Team has been discussed. Patient/Family are encouraged to report perceived risks to care and to ask questions if they do not understand what they are told or what they should do.
--- NOTE | 2024-10-24 08:56 | P.HP_ITS ---
H&P: HPI History of Present Illness Date/Time: 10/24/24 08:56 Chief Complaint: syncope Narrative: Danii Almenadrez is a 39-year-old female with a past medical history of anemia and tooth pain for the past several months. Patient was seen twice in May and once at the end of September for similar issues. In May she was placed penicillin and amoxicillin, and in September she was placed on Augmentin without any relief. She states that she has been unable to find an opening at her dentist for the past 6 months and states that their office does not have another opening for the next year. She is nontoxic appearing and afebrile. She does endorse some lightheadedness/dizziness yesterday but she believes it was due to her anxiety due to her ongoing and unrelenting pain. She denies any shortness of breath, chest pain, nausea/vomiting, dysphagia. Admitted for some tissue swelling/dental abscess, ENT to be consulted and patient be placed on IV antibiotics. At this time patient does not appear to be in respiratory distress and pain is well controlled. In ED: 97.8F, 104 HR, 16RR, 146/97, 99% on RA WBC 7.9, H&H 10.3 and 32.6, platelet 330. Sodium 139, potassium 4 1, carbon dioxide 29, BUN 12 creatinine 0.77, GFR over 60, glucose 103, LFTs normal EKG: Normal sinus rhythm with rate of 90 ppm, LA interval 152. QRS 102. No T- wave inversions, however flattening throughout Chest x-ray: No acute cardiopulmonary findings Soft tissue neck CT: No significant abnormalities noted Review of Systems Review of Systems: All systems reviewed & are unremarkable except as noted in HPI and below [facility] Past Medical History Medical History (Updated 10/24/24 @ 15:52 by Sree Colón PA-C) No active medical problems Social History Social History (Updated 06/21/24 @ 14:05 by Marii Warner PA-C) Smoking status: Current every day smoker Alcohol intake: never Substance use: current Substance use type: marijuana Last use: 2 1/2 weeks ago Do You Feel Safe in your Home?: Yes Lack of Transportation: No Lack of Food: Never True Current Housing: I Have Housing Concerned About Future Housing: No Difficulty Paying Gas/Electric Bills: No Difficulty Paying for Meds: No Currently Unemployed: No Education: High School Diploma/GED Difficulty w/ Childcare or Family Care: No Spiritual care concerns: No Meds Home Medications and Allergies Home Medications ?Medication ?Instructions ?Recorded ?Confirmed ?Type hydrocodone 5 mg-acetaminophen 325 1 tablet PO Q6H PRN pain #10 tabs 06/21/24 10/24/24 Rx mg tablet cyclobenzaprine 10 mg tablet 10 mg PO QHS 10/24/24 10/24/24 History dicyclomine 10 mg capsule 10 mg PO TID 10/24/24 10/24/24 History duloxetine 30 mg capsule,delayed 60 mg PO DAILY 10/24/24 10/24/24 History release gabapentin 600 mg tablet 600 mg PO TID 10/24/24 10/24/24 History losartan 25 mg tablet (Cozaar) 25 mg PO DAILY 10/24/24 10/24/24 History quetiapine 100 mg tablet (Seroquel) 150 mg PO HS 10/24/24 10/24/24 History quetiapine 50 mg tablet (Seroquel) 50 mg PO DAILY 10/24/24 10/24/24 History Allergies Allergy/AdvReac Type Severity Reaction Status Date / Time No Known Drug Allergies Allergy NA Verified 10/18/24 10:22 Vital Signs Vital Signs - 24 hr 10/23/24 23:25 10/24/24 01:23 10/24/24 01:40 Temperature 97.8 F Pulse Rate 104 H 91 Respiratory Rate 16 15 Blood Pressure 146/97 H 137/98 H Pulse Oximetry 99 100 100 Oxygen Delivery Room Air 10/24/24 02:01 10/24/24 02:02 10/24/24 02:15 Temperature Pulse Rate Respiratory Rate Blood Pressure 131/92 H Pulse Oximetry 100 100 99 Oxygen Delivery 10/24/24 02:16 10/24/24 02:51 10/24/24 03:00 Temperature Pulse Rate Respiratory Rate Blood Pressure 130/97 H Pulse Oximetry 100 100 100 Oxygen Delivery 10/24/24 04:03 10/24/24 06:44 10/24/24 06:45 Temperature Pulse Rate 87 82 Respiratory Rate 15 Blood Pressure 144/94 H 159/106 H Pulse Oximetry 98 99 100 Oxygen Delivery 10/24/24 06:46 10/24/24 07:00 10/24/24 07:01 Temperature Pulse Rate 85 Respiratory Rate Blood Pressure 153/104 H Pulse Oximetry 100 98 99 Oxygen Delivery 10/24/24 08:08 Temperature Pulse Rate 87 Respiratory Rate 14 Blood Pressure 144/98 H Pulse Oximetry 98 Oxygen Delivery Exam Narrative: Gen - well appearing female in no acute respiratory distress who is nontoxic- appearing lying semi recumbent in bed HEENT -trismus but able to open mouth. Multiple fractured teeth, particularly right and left lower molars. Normocephalic. Atraumatic. Pupils equal round and reactive. Extraocular motions intact. Oropharynx was clear. No oral lesions. Moist mucous membranes. Tongue was midline. Palate jackie symmetrically. No facial asymmetry. Neck - neck was supple. No dominant adenopathy, thyromegaly or masses. Chest - lungs are clear to auscultation bilaterally. No wheezes or crackles. CV - heart was regular rate and rhythm. S1-S2. No murmurs gallops or rubs. Abd - abdomen was soft. Nontender. Nondistended. Positive bowel sounds. Ext - no clubbing, cyanosis or edema. Neuro - patient is alert and oriented x4. Strength is 5/5 in both upper and lower extremities. Cranial nerves 2-12 are intact. Speech is clear. Psych - normal mood and affect. Patient is pleasant and cooperative. Skin - warm and dry. No rashes noted. H&P: Results Labs Labs: Short CBC 10/23/24 Range/Units 23:42 WBC 7.9 (4.5-10.0) K/mm3 Hgb 10.3 L (12.0-15.0) g/dL Hct 32.6 L (37.0-47.0) % Plt Count 330 (150-375) k/mm3 [facility] 10/23/24 23:43 Sodium 139 Potassium 4.1 Chloride 104 Carbon Dioxide 29 BUN 12 Creatinine 0.77 Glucose 103 Calcium 9.1 Liver Function 10/23/24 Range/Units 23:43 Total Bilirubin 0.4 (0.2-1.3) mg/dL AST 28 (14-36) U/L ALT 16 (6-35) U/L Alkaline Phosphatase 64 (38-126) U/L Albumin 4.0 (3.5-5.1) g/dL Assessment and Plan Assessment and plan (1) Abscess or cellulitis, oral soft tissue: Code(s): K12.2 - Cellulitis and abscess of mouth Status: Acute Assessment and Plan: * Several month history of dental infections/abscesses. Seen multiple times in May and this may for similar issue, has been unable to get in to see the dentist. * Failed multiple oral antibiotics: Penicillin, amoxicillin, Augmentin * Admit for IV antibiotics, Unasyn * Soft tissue neck CT: No significant abnormalities noted * CXR: No acute cardiopulmonary pathology. * Blood cultures pending at this time * ENT consultation, appreciate further recommendations (2) Anemia, macrocytic: Code(s): D53.9 - Nutritional anemia, unspecified Status: Acute Assessment and Plan: - Hgb 10.3 - transfuse if <7 - trend H&H (3) Fibromyalgia: Code(s): M79.7 - Fibromyalgia Status: Acute Assessment and Plan: * Continue at-home medications (4) Anxiety: Code(s): F41.9 - Anxiety disorder, unspecified Status: Acute Assessment and Plan: * Continue Seroquel and duloxetine (5) Hypertension: Code(s): I10 - Essential (primary) hypertension Status: Acute Assessment and Plan: Patient's blood pressure was reviewed on 10/24 Blood pressure remains well controlled. Will continue current medications. Continue losartan Plan DVT prophylaxis: Lovenox 40mg Quality VTE Prophylaxis VTE prophylaxis: pharmacologic ordered
[2024-10-24 09:28] LABS: Basophils Absolute Auto 0.1 K/mm3 (0.0-0.1); Basophils Percent Auto 0.7 % (0.2-1.2); Eosinophils Absolute Auto 0.7 K/mm3 (0-0.3); Eosinophils Percent Auto 8.7 % (0-4.4); Hematocrit 33.7 % (37.0-47.0); Hemoglobin 10.4 g/dL (12.0-15.0); Immature Granulocyte Absolute 0.04 K/mm3 (0.00-0.031); Immature Granulocyte Percent A 0.5 % (0-0.5); Lymphocytes Absolute Auto 2.59 K/mm3 (0.9-3.2); Lymphocytes Percent Auto 34.2 % (18.3-44.2); Mean Corpuscular HGB Conc 30.9 g/dl (32-36); Mean Corpuscular Hemoglobin 34.1 pg (26-34); Mean Corpuscular Volume 110.5 fl (80-100); Mean Platelet Volume 8.9 fl (7.4-10.4); Monocytes Absolute Auto 0.6 K/mm3 (0.1-0.6); Monocytes Percent Auto 8.4 % (2.6-8.5); Neutrophils Absolute Auto 3.6 K/mm3 (1.3-6.7); Neutrophils Percent Auto 47.5 % (45.5-73.1); Platelet Count Result 322 k/mm3 (150-375); Red Blood Count 3.05 M/mm3 (4.2-5.4); Red Cell Distribution Width 13.2 % (11.5-14.5); White Blood Count 7.6 K/mm3 (4.5-10.0)
[2024-10-24 09:45] LABS: Alanine Aminotransferase 14 U/L (6-35); Alkaline Phosphatase 69 U/L (38-126); Anion Gap 4 mmol/L (4-12); Aspartate Amino Transferase 26 U/L (14-36); Bilirubin,Total 0.4 mg/dL (0.2-1.3); Blood Urea Nitrogen 10 mg/dL (7-17); Calcium 8.5 mg/dL (8.4-10.2); Carbon Dioxide 31 mmol/L (22-30); Chloride 104 mmol/L (98-107); Estimated CRCL calculation 141 ml/min; Estimated Glomerular Filt Rate > 60; Glucose 99 mg/dL (65-110); Potassium 3.8 mmol/L (3.4-5.0); Sodium 139 mmol/L (137-145)
[2024-10-24 09:51] LABS: Macrocytosis 1+ (NORMAL); Platelet Estimate Adequate (Adequate); Schistocytes None Seen
[2024-10-24] MEDS: ACETAMINOPHEN 325 MG TABLET 650 MG PO (12:08)
[2024-10-24] MEDS: DICYCLOMINE HCL 10 MG CAPSULE PO ×2 (14:38→22:23)
[2024-10-24] MEDS: GABAPENTIN 300 MG CAPSULE 600 MG PO ×2 (14:38→22:23)
--- NOTE | 2024-10-24 16:09 | P.CONS_ITS ---
Assessment and Plan Assessment and plan (1) Abscess or cellulitis, oral soft tissue: Code(s): K12.2 - Cellulitis and abscess of mouth Status: Acute (2) Right facial swelling: Code(s): R22.0 - Localized swelling, mass and lump, head Status: Acute Plan 39 year old female with right lower jaw gingivitis caused by dental infection ,and right side cheek swelling 1.i have personally reviewed the ct scan soft tissue neck and i do not see any abscess formation in the floor of mouth or neck. 2.continue iv antibiotics 3.Oral maxillofacial surgeon consult 4.discharge antibiotic (once she improve and fulfills the criteria ) :clindamycin 300 mg tid for 10 days +probiotics 5.good oral hygiene using mouth wash every 12 hours 6 repeat consult as needed HPI Data of Consult Date/Time: 10/24/24 16:09 Requesting Physician: Andry Rubi MD Primary Care Provider: [facility] Healthcare Consult Narrative Narrative: Danii Almendarez is a 39 year old female for evaluation of right side facial swelling and dental pain patient with history of anemia and tooth pain for the past several months. Patient was seen twice in May and once at the end of September for similar issues. In May she was placed penicillin and amoxicillin, and in September she was placed on Augmentin without any relief. She states that she has been unable to find an opening at her dentist for the past 6 months and states that their office does not have another opening for the next year. She is nontoxic appearing and afebrile. She denies any shortness of breath, chest pain, nausea/vomiting, dysphagia. Admitted for some tissue swelling/dental abscess Patient mentioned that she has lost her healthy teeth due to smoking Patient mentioned that her right cheek swelling has increased since she was admitted Patient is able ot tolerate regular diet Review of Systems 2 Review of Systems: All systems reviewed & are unremarkable except as noted in HPI and below Constitutional: Constitutional: Reports as per HPI ENT: Reports as per HPI Respiratory: Respiratory: Reports as per HPI Gastrointestinal: Gastrointestinal: Reports as per HPI [facility] Past Medical History Medical History (Updated 10/24/24 @ 19:03 by Marty Giron MD) Right facial swelling No active medical problems Social History Social History (Updated 06/21/24 @ 14:05 by Marii Warner PA-C) Smoking status: Current every day smoker Alcohol intake: never Substance use: current Substance use type: marijuana Last use: 2 1/2 weeks ago Do You Feel Safe in your Home?: Yes Lack of Transportation: No Lack of Food: Never True Current Housing: I Have Housing Concerned About Future Housing: No Difficulty Paying Gas/Electric Bills: No Difficulty Paying for Meds: No Currently Unemployed: No Education: High School Diploma/GED Difficulty w/ Childcare or Family Care: No Spiritual care concerns: No Meds Home Medications and Allergies Home Medications ?Medication ?Instructions ?Recorded ?Confirmed ?Type hydrocodone 5 mg-acetaminophen 325 1 tablet PO Q6H PRN pain #10 tabs 06/21/24 10/24/24 Rx mg tablet cyclobenzaprine 10 mg tablet 10 mg PO QHS 10/24/24 10/24/24 History dicyclomine 10 mg capsule 10 mg PO TID 10/24/24 10/24/24 History duloxetine 30 mg capsule,delayed 60 mg PO DAILY 10/24/24 10/24/24 History release gabapentin 600 mg tablet 600 mg PO TID 10/24/24 10/24/24 History losartan 25 mg tablet (Cozaar) 25 mg PO DAILY 10/24/24 10/24/24 History quetiapine 100 mg tablet (Seroquel) 150 mg PO HS 10/24/24 10/24/24 History quetiapine 50 mg tablet (Seroquel) 50 mg PO DAILY 10/24/24 10/24/24 History Allergies Allergy/AdvReac Type Severity Reaction Status Date / Time No Known Drug Allergies Allergy NA Verified 10/18/24 10:22 Vital Signs Vital Signs - 24 hr 10/23/24 23:25 10/24/24 01:23 10/24/24 01:40 Temperature 36.6 C Pulse Rate 104 H 91 Respiratory Rate 16 15 Blood Pressure 146/97 H 137/98 H Pulse Oximetry 99 100 100 Oxygen Delivery Room Air 10/24/24 02:01 10/24/24 02:02 10/24/24 02:15 Temperature Pulse Rate Respiratory Rate Blood Pressure 131/92 H Pulse Oximetry 100 100 99 Oxygen Delivery 10/24/24 02:16 10/24/24 02:51 10/24/24 03:00 Temperature Pulse Rate Respiratory Rate Blood Pressure 130/97 H Pulse Oximetry 100 100 100 Oxygen Delivery 10/24/24 04:03 10/24/24 06:44 10/24/24 06:45 Temperature Pulse Rate 87 82 Respiratory Rate 15 Blood Pressure 144/94 H 159/106 H Pulse Oximetry 98 99 100 Oxygen Delivery 10/24/24 06:46 10/24/24 07:00 10/24/24 07:01 Temperature Pulse Rate 85 Respiratory Rate Blood Pressure 153/104 H Pulse Oximetry 100 98 99 Oxygen Delivery 10/24/24 08:08 10/24/24 08:20 10/24/24 08:30 Temperature 36.4 C L Pulse Rate 87 76 Respiratory Rate 14 20 Blood Pressure 144/98 H 134/95 H Pulse Oximetry 98 100 Oxygen Delivery Room Air 10/24/24 14:00 Temperature 36.2 C L Pulse Rate 70 Respiratory Rate 18 Blood Pressure 141/95 H Pulse Oximetry 100 Oxygen Delivery Exam 2 Const: General: cooperative, healthy appearing, comfortable, no acute distress, well developed, alert, awake and Physically active O rientation/consciousness: oriented to person, oriented to place, oriented to time and patient oriented x3 HENMT: Head: normocephalic, atraumatic and other (right side tender cheek) Ears: external ears normal and EAC's normal Face/Nose/Sinus: Normal external nose present and Normal nares present Mouth: Yes Normal oral and palatal mucosa present, Yes lip normal, Yes tongue normal, Yes Normal salivary glands and ducts present, Yes oropharynx normal, Yes moist mucous membranes and Yes other (tender swollen right lower gum) Teeth and gingiva: caries, poor dentition and other Teeth image: 1. tender swollen gum without pus formation or inflammatory reactive periosteum Eyes: General: appearance normal, both eyes and all related structures Neck: Neck: normal visual inspection, full ROM, trachea midline and other (mild right submandibular tenderness without flocculence or subcutaneous gas) Resp: Effort & Inspection: normal respiratory effort and able to speak in complete sentences Cardio: Rate: regular rate Neuro: General: oriented to person, oriented to place, oriented to time and patient oriented x3 Results Labs 10/24/24 09:04 10/24/24 09:04 Labs: Short CBC 10/23/24 10/24/24 Range/Units 23:42 09:04 WBC 7.9 7.6 (4.5-10.0) K/mm3 Hgb 10.3 L 10.4 L (12.0-15.0) g/dL Hct 32.6 L 33.7 L (37.0-47.0) % Plt Count 330 322 (150-375) k/mm3 BMP 10/23/24 10/24/24 23:43 09:04 Sodium 139 139 Potassium 4.1 3.8 Chloride 104 104 Carbon Dioxide 29 31 H BUN 12 10 Creatinine 0.77 0.58 L Glucose 103 99 Calcium 9.1 8.5 Liver Function 10/23/24 10/24/24 Range/Units 23:43 09:04 Total Bilirubin 0.4 0.4 (0.2-1.3) mg/dL AST 28 26 (14-36) U/L ALT 16 14 (6-35) U/L Alkaline Phosphatase 64 69 (38-126) U/L Albumin 4.0 4.0 (3.5-5.1) g/dL
[2024-10-24] MEDS: HYDROcodone/acetaminophen (*CRX) 5-325 MG TABLET 1 TAB PO (16:43)
[2024-10-24] MEDS: CYCLOBENZAPRINE HCL 10 MG TABLET PO (20:46)
[2024-10-24] MEDS: QUEtiapine FUMARATE 25 MG TABLET 150 MG PO (20:47)
[2024-10-25] MEDS: AMPICILLIN SULB 3 GM/NS 100 ML 3 GM/100 ML VIAL IVPB ×5 (00:58→23:41)
[2024-10-25] MEDS: HYDROcodone/acetaminophen (*CRX) 5-325 MG TABLET 1 TAB PO ×3 (01:04→20:54)
[2024-10-25 04:58] VITALS: BP 150/85; PULSE 91; RESP 18; TEMP 36.6; O2SAT 99
[2024-10-25] MEDS: HYDROmorphone HCL INJ (*CRX) 2 MG/ML VIAL 1 MG IV PUSH ×4 (06:08→23:40)
[2024-10-25 06:39] LABS: Basophils Percent Auto 0.3 % (0.2-1.2); Eosinophils Absolute Auto 0.3 K/mm3 (0-0.3); Eosinophils Percent Auto 4.6 % (0-4.4); Hematocrit 31.9 % (37.0-47.0); Immature Granulocyte Absolute 0.02 K/mm3 (0.00-0.031); Immature Granulocyte Percent A 0.3 % (0-0.5); Lymphocytes Absolute Auto 2.15 K/mm3 (0.9-3.2); Lymphocytes Percent Auto 31.9 % (18.3-44.2); Mean Corpuscular HGB Conc 31.3 g/dl (32-36); Mean Corpuscular Hemoglobin 34.4 pg (26-34); Mean Corpuscular Volume 109.6 fl (80-100); Mean Platelet Volume 9.2 fl (7.4-10.4); Monocytes Absolute Auto 0.5 K/mm3 (0.1-0.6); Monocytes Percent Auto 7.3 % (2.6-8.5); Neutrophils Absolute Auto 3.7 K/mm3 (1.3-6.7); Neutrophils Percent Auto 55.6 % (45.5-73.1); Platelet Count Result 310 k/mm3 (150-375); Red Blood Count 2.91 M/mm3 (4.2-5.4); Red Cell Distribution Width 12.8 % (11.5-14.5); White Blood Count 6.7 K/mm3 (4.5-10.0)
[2024-10-25 06:53] LABS: Alanine Aminotransferase 13 U/L (6-35); Albumin Level 3.6 g/dL (3.5-5.1); Alkaline Phosphatase 69 U/L (38-126); Anion Gap 5 mmol/L (4-12); Aspartate Amino Transferase 24 U/L (14-36); Bilirubin,Total 0.3 mg/dL (0.2-1.3); Blood Urea Nitrogen 8 mg/dL (7-17); Carbon Dioxide 29 mmol/L (22-30); Chloride 105 mmol/L (98-107); Estimated CRCL calculation 131 ml/min; Estimated Glomerular Filt Rate > 60; Glucose 101 mg/dL (65-110); Potassium 3.9 mmol/L (3.4-5.0); Sodium 139 mmol/L (137-145); Total Protein 6.5 g/dL (6.3-8.2)
[2024-10-25 07:00] LABS: Platelet Estimate Adequate (Adequate)
[2024-10-25 07:01] LABS: Macrocytosis 1+ (NORMAL); Schistocytes None Seen
--- NOTE | 2024-10-25 07:01 | P.PNIM_ITS ---
Progress Note: A&P Assessment and Plan (1) Abscess or cellulitis, oral soft tissue: Code(s): K12.2 - Cellulitis and abscess of mouth Status: Acute Assessment and Plan: * Several month history of dental infections/abscesses. Seen multiple times in May and this september for similar issue, has been unable to get in to see the dentist. * Failed multiple oral antibiotics: Penicillin, amoxicillin, Augmentin * Admit for IV antibiotics, Unasyn * Soft tissue neck CT: No significant abnormalities noted * CXR: No acute cardiopulmonary pathology. * Blood cultures pending at this time * ENT consultation * Continue Unasyn * No surgical intervention needed at this time * Once clinically better, discharge on oral Clindamycin (2) Right facial swelling: Code(s): R22.0 - Localized swelling, mass and lump, head Status: Acute Assessment and Plan: * See above (3) Anemia, macrocytic: Code(s): D53.9 - Nutritional anemia, unspecified Status: Acute Assessment and Plan: - Hgb 10.3 - transfuse if <7 - trend H&H (4) Fibromyalgia: Code(s): M79.7 - Fibromyalgia Status: Acute Assessment and Plan: * Continue at-home medications (5) Anxiety: Code(s): F41.9 - Anxiety disorder, unspecified Status: Acute Assessment and Plan: * Continue Seroquel and duloxetine (6) Hypertension: Code(s): I10 - Essential (primary) hypertension Status: Acute Assessment and Plan: Patient's blood pressure was reviewed on 10/24 Blood pressure remains well controlled. Will continue current medications. Continue losartan Plan DVT prophylaxis: Lovenox 40mg Subjective Date/time seen: 10/25/24 07:01 Interval history: Danii Almendarez is a 39-year-old female with a past medical history of anemia, anx iety, and fibromyalgia and tooth pain for the past several months who presents with dental pain. Patient was seen twice in May and once at the end of September for similar issues. 10/25/2024 Patient sitting comfortably in bed at time of exam. ENT consulted regarding facial swelling/cellulitis of the oral soft tissue. Agree with continuing IV antibiotics until pt endorses pain/swelling relief with discharge on Clindamycin once clinically better. Review of Systems Review of Systems: All systems reviewed & are unremarkable except as noted in HPI and below Exam Narrative: Gen - well appearing female in no acute respiratory distress who is nontoxic- appearing lying semi recumbent in bed HEENT -trismus but able to open mouth. Multiple fractured teeth, particularly right and left lower molars. Normocephalic. Atraumatic. Pupils equal round and reactive. Extraocular motions intact. Oropharynx was clear. No oral lesions. Moist mucous membranes. Right submandibular tenderness. Tongue was midline. Palate jackie symmetrically. No facial asymmetry. Neck - neck was supple. No dominant adenopathy, thyromegaly or masses. Chest - lungs are clear to auscultation bilaterally. No wheezes or crackles. CV - heart was regular rate and rhythm. S1-S2. No murmurs gallops or rubs. Abd - abdomen was soft. Nontender. Nondistended. Positive bowel sounds. Ext - no clubbing, cyanosis or edema. Neuro - patient is alert and oriented x4. Strength is 5/5 in both upper and lower extremities. Cranial nerves 2-12 are intact. Speech is clear. Psych - normal mood and affect. Patient is pleasant and cooperative. Skin - warm and dry. No rashes noted. Objective Data Vital Signs Vital Signs: Vital Signs - 24 hr 10/24/24 08:08 10/24/24 08:20 10/24/24 08:30 Temperature 97.5 F L Pulse Rate 87 76 Respiratory Rate 14 20 Blood Pressure 144/98 H 134/95 H Pulse Oximetry 98 100 Oxygen Delivery Room Air 10/24/24 14:00 10/24/24 20:00 10/24/24 20:43 Temperature 97.2 F L 97.4 F L Pulse Rate 70 74 74 Respiratory Rate 18 16 16 Blood Pressure 141/95 H 139/99 H Pulse Oximetry 100 100 100 Oxygen Delivery Room Air 10/25/24 04:58 Temperature 97.8 F Pulse Rate 91 Respiratory Rate 18 Blood Pressure 150/85 H Pulse Oximetry 99 Oxygen Delivery Intake/Output Intake/Output: Intake & Output 10/22/24 10/23/24 10/24/24 10/25/24 23:59 23:59 23:59 23:59 Intake Total 2029 750 Balance 2029 750 Meds/Results Medications: Active Medications Generic Name Dose Route Start Last Admin Trade Name Freq PRN Reason Stop Dose Admin Acetaminophen 650 mg 10/24/24 06:07 10/24/24 12:08 Acetaminophen 325 Mg Tablet PO 650 mg Q4H PRN Administration Mild Pain (1-3) or Fever Hydrocodone Bitart/Acetaminophen 1 tab 10/24/24 13:30 10/25/24 01:04 Hydrocodone/Acetaminophen (*Crx) 5-325 Mg Tablet PO 1 tab Q6H PRN Administration pain Cyclobenzaprine HCl 10 mg 10/24/24 21:00 10/24/24 20:46 Cyclobenzaprine Hcl 10 Mg Tablet PO 10 mg QHS FARZANA Administration Dicyclomine HCl 10 mg 10/24/24 22:10 10/24/24 22:23 Dicyclomine Hcl 10 Mg Capsule PO 10 mg TID FARZANA Administration Duloxetine HCl 60 mg 10/25/24 09:00 Duloxetine Hcl 30 Mg Capsule.Dr PO DAILY [facility] Enoxaparin Sodium 40 mg 10/25/24 09:00 Enoxaparin 40 Mg/0.4 Ml Syringe SUB-Q DAILY [facility] Gabapentin 600 mg 10/24/24 22:10 10/24/24 22:23 Gabapentin 300 Mg Capsule PO 600 mg TID FARZANA Administration Hydromorphone HCl 1 mg 10/24/24 06:07 10/25/24 06:08 Hydromorphone Hcl Inj (*Crx) 2 Mg/Ml Vial IV PUSH 1 mg Q4H PRN Administration Pain Rated 7-10 Ampicillin Sodium/Sulbactam Sodium 3 gm in 100 mls @ 200 mls/hr 10/24/24 06:10 10/25/24 06:42 Unasyn 3 Gm/Ns 100 Ml IVPB Infused Q6HR FARZANA Infusion Losartan Potassium 25 mg 10/25/24 09:00 Losartan Potassium 25 Mg Tablet PO DAILY [facility] Ondansetron HCl 4 mg 10/24/24 06:07 10/24/24 08:08 Ondansetron Inj 4 Mg/2 Ml Vial IV PUSH 4 mg Q4H PRN Administration Nausea Quetiapine Fumarate 50 mg 10/25/24 09:00 Quetiapine Fumarate 25 Mg Tablet PO DAILY [facility] Quetiapine Fumarate 150 mg 10/24/24 21:00 10/24/24 20:47 Quetiapine Fumarate 25 Mg Tablet PO 150 mg HS FARZANA Administration Radiology Results: ITS Impressions Chest X-Ray 10/24/24 00:28 IMPRESSION: No acute cardiopulmonary pathology. Soft Tissue Neck CT 10/24/24 06:31 Impression: No significant abnormalities noted. Labs Labs: Laboratory Results - last 24 hr 10/24/24 10/25/24 09:04 06:08 WBC 7.6 6.7 RBC 3.05 L 2.91 L Hgb 10.4 L 10.0 L Hct 33.7 L 31.9 L MCV 110.5 H 109.6 H MCH 34.1 H 34.4 H MCHC 30.9 L 31.3 L RDW 13.2 12.8 Plt Count 322 310 MPV 8.9 9.2 Immature Gran % (Auto) 0.5 0.3 Neut % (Auto) 47.5 55.6 Lymph % (Auto) 34.2 31.9 Hudspeth % (Auto) 8.4 7.3 Eos % (Auto) 8.7 H 4.6 H Baso % (Auto) 0.7 0.3 Lymph # (Auto) 2.59 2.15 [place]udspeth # (Auto) 0.6 0.5 Eos # (Auto) 0.7 H 0.3 Baso # (Auto) 0.1 0.0 Abs Immat Gran (auto) 0.04 H 0.02 Absolute Neuts (auto) 3.6 3.7 Absolute Nucleated RBC 0.000 0.000 Band Neutrophils % Not Reportable Nucleated RBC % 0.0 0.0 Platelet Estimate Adequate Macrocytosis 1+ Schistocytes None seen Sodium 139 139 Potassium 3.8 3.9 Chloride 104 105 Carbon Dioxide 31 H 29 Anion Gap 4 5 BUN 10 8 Creatinine 0.58 L 0.63 L Estim Creat Clear Calc 141 131 Estimated GFR > 60 > 60 Glucose 99 101 Calcium 8.5 9.0 Total Bilirubin 0.4 0.3 AST 26 24 ALT 14 13 Alkaline Phosphatase 69 69 Total Protein 7.0 6.5 Albumin 4.0 3.6 Quality VTE Prophylaxis VTE prophylaxis: pharmacologic ordered
[2024-10-25] MEDS: GABAPENTIN 300 MG CAPSULE 600 MG PO ×3 (08:59→17:29)
[2024-10-25] MEDS: DICYCLOMINE HCL 10 MG CAPSULE PO ×3 (08:59→17:29)
[2024-10-25] MEDS: ENOXAPARIN 40 MG/0.4 ML SYRINGE SUB-Q (08:59)
[2024-10-25] MEDS: DULoxetine HCL 30 MG CAPSULE.DR 60 MG PO (08:59)
[2024-10-25] MEDS: QUEtiapine FUMARATE 25 MG TABLET 50 MG PO (08:59)
[2024-10-25] MEDS: LOSARTAN POTASSIUM 25 MG TABLET PO (08:59)
[2024-10-25 14:00] VITALS: BP 129/95; PULSE 83; RESP 18; TEMP 36.9; O2SAT 100
[2024-10-25] MEDS: ONDANSETRON INJ 4 MG/2 ML VIAL IV PUSH (17:36)
[2024-10-25 20:00] VITALS: O2SAT 100
[2024-10-25] MEDS: CYCLOBENZAPRINE HCL 10 MG TABLET PO (20:54)
[2024-10-25] MEDS: QUEtiapine FUMARATE 25 MG TABLET 150 MG PO (20:54)
[2024-10-25 22:00] VITALS: BP 131/81; PULSE 79; RESP 18; TEMP 36.3; O2SAT 100
[2024-10-26 06:00] VITALS: BP 135/70; PULSE 82; RESP 18; TEMP 36.3; O2SAT 99
[2024-10-26] MEDS: AMPICILLIN SULB 3 GM/NS 100 ML 3 GM/100 ML VIAL IVPB ×4 (06:19→22:52)
[2024-10-26] MEDS: HYDROmorphone HCL INJ (*CRX) 2 MG/ML VIAL 1 MG IV PUSH ×4 (06:24→21:20)
[2024-10-26 07:15] LABS: Basophils Percent Auto 0.6 % (0.2-1.2); Eosinophils Absolute Auto 0.3 K/mm3 (0-0.3); Eosinophils Percent Auto 4.9 % (0-4.4); Hematocrit 31.8 % (37.0-47.0); Immature Granulocyte Absolute 0.01 K/mm3 (0.00-0.031); Immature Granulocyte Percent A 0.2 % (0-0.5); Lymphocytes Percent Auto 43.2 % (18.3-44.2); Mean Corpuscular HGB Conc 31.4 g/dl (32-36); Mean Corpuscular Volume 108.2 fl (80-100); Mean Platelet Volume 8.7 fl (7.4-10.4); Monocytes Absolute Auto 0.4 K/mm3 (0.1-0.6); Monocytes Percent Auto 8.4 % (2.6-8.5); Neutrophils Absolute Auto 2.2 K/mm3 (1.3-6.7); Neutrophils Percent Auto 42.7 % (45.5-73.1); Platelet Count Result 304 k/mm3 (150-375); Red Blood Count 2.94 M/mm3 (4.2-5.4); Red Cell Distribution Width 12.4 % (11.5-14.5); White Blood Count 5.1 K/mm3 (4.5-10.0)
[2024-10-26 07:23] LABS: Alanine Aminotransferase 13 U/L (6-35); Albumin Level 3.7 g/dL (3.5-5.1); Alkaline Phosphatase 65 U/L (38-126); Anion Gap 7 mmol/L (4-12); Aspartate Amino Transferase 25 U/L (14-36); Bilirubin,Total 0.3 mg/dL (0.2-1.3); Blood Urea Nitrogen 8 mg/dL (7-17); Calcium 8.8 mg/dL (8.4-10.2); Carbon Dioxide 26 mmol/L (22-30); Chloride 105 mmol/L (98-107); Estimated CRCL calculation 126 ml/min; Estimated Glomerular Filt Rate > 60; Glucose 99 mg/dL (65-110); Potassium 3.8 mmol/L (3.4-5.0); Sodium 138 mmol/L (137-145); Total Protein 6.6 g/dL (6.3-8.2)
--- NOTE | 2024-10-26 08:02 | P.PNIM_ITS ---
Progress Note: A&P Assessment and Plan (1) Abscess or cellulitis, oral soft tissue: Code(s): K12.2 - Cellulitis and abscess of mouth Status: Acute Assessment and Plan: * Several month history of dental infections/abscesses. Seen multiple times in May and this september for similar issue, has been unable to get in to see the dentist. * Failed multiple oral antibiotics: Penicillin, amoxicillin, Augmentin * Admit for IV antibiotics, Unasyn * Soft tissue neck CT: No significant abnormalities noted * CXR: No acute cardiopulmonary pathology. * Blood cultures pending at this time * ENT consultation * Continue Unasyn * No surgical intervention needed at this time * Once clinically better, discharge on oral Clindamycin * Improvement of symptoms today, face/jaw still swollen, more on left, but o verall improved since yesterday (2) Right facial swelling: Code(s): R22.0 - Localized swelling, mass and lump, head Status: Acute Assessment and Plan: * See above (3) Anemia, macrocytic: Code(s): D53.9 - Nutritional anemia, unspecified Status: Acute Assessment and Plan: - Hgb 10.3 - transfuse if <7 - trend H&H - 10/26: Hg 10.0 (4) Fibromyalgia: Code(s): M79.7 - Fibromyalgia Status: Acute Assessment and Plan: * Continue at-home medications (5) Anxiety: Code(s): F41.9 - Anxiety disorder, unspecified Status: Acute Assessment and Plan: * Continue Seroquel and duloxetine (6) Hypertension: Code(s): I10 - Essential (primary) hypertension Status: Acute Assessment and Plan: Patient's blood pressure was reviewed on 10/24 Blood pressure remains well controlled. Will continue current medications. Continue losartan Stable Plan DVT prophylaxis: Lovenox 40mg Subjective Date/time seen: 10/26/24 08:02 Interval history: Danii Almendarez is a 39-year-old female with a past medical history of anemia, anxiety, and fibromyalgia and tooth pain for the past several months who p resents with dental pain. Patient was seen twice in May and once at the end of September for similar issues. 10/26/2024 Patient sitting comfortably in bed at time of exam. Continuing IV antibiotics until pt endorses pain/swelling relief with discharge on Clindamycin once clinically better. Pt reports improvement of symptoms today. Left side of face does still appear swollen and tender but improved. Right side of face greatly improved, nontender. Review of Systems Review of Systems: All systems reviewed & are unremarkable except as noted in HPI and below Exam Narrative: Gen - well appearing female in no acute respiratory distress who is nontoxic- appearing lying semi recumbent in bed HEENT -trismus but able to open mouth. Multiple fractured teeth, particularly right and left lower molars. Normocephalic. Atraumatic. Pupils equal round and reactive. Extraocular motions intact. Oropharynx was clear. No oral lesions. Moist mucous membranes. Right submandibular tenderness. Tongue was midline. Palate jackie symmetrically. No facial asymmetry. Neck - neck was supple. No dominant adenopathy, thyromegaly or masses. Chest - lungs are clear to auscultation bilaterally. No wheezes or crackles. CV - heart was regular rate and rhythm. S1-S2. No murmurs gallops or rubs. Abd - abdomen was soft. Nontender. Nondistended. Positive bowel sounds. Ext - no clubbing, cyanosis or edema. Neuro - patient is alert and oriented x4. Strength is 5/5 in both upper and lower extremities. Cranial nerves 2-12 are intact. Speech is clear. Psych - normal mood and affect. Patient is pleasant and cooperative. Skin - warm and dry. No rashes noted. Objective Data Vital Signs Vital Signs: Vital Signs - 24 hr 10/25/24 08:57 10/25/24 14:00 10/25/24 20:00 Temperature 98.4 F Pulse Rate 83 Respiratory Rate 18 Blood Pressure 129/95 H Pulse Oximetry 100 100 Oxygen Delivery Room Air Room Air 10/25/24 22:00 10/26/24 06:00 Temperature 97.4 F L 97.3 F L Pulse Rate 79 82 Respiratory Rate 18 18 Blood Pressure 131/81 135/70 Pulse Oximetry 100 99 Oxygen Delivery Intake/Output Intake/Output: Intake & Output 10/23/24 10/24/24 10/25/24 10/26/24 23:59 23:59 23:59 23:59 Intake Total 20290 200 Balance 20290 200 Meds/Results Medications: Active Medications Generic Name Dose Route Start Last Admin Trade Name Freq PRN Reason Stop Dose Admin Acetaminophen 650 mg 10/24/24 06:07 10/24/24 12:08 Acetaminophen 325 Mg Tablet PO 650 mg Q4H PRN Administration Mild Pain (1-3) or Fever Hydrocodone Bitart/Acetaminophen 1 tab 10/24/24 13:30 10/25/24 20:54 Hydrocodone/Acetaminophen (*Crx) 5-325 Mg Tablet PO 1 tab Q6H PRN Administration pain Cyclobenzaprine HCl 10 mg 10/24/24 21:00 10/25/24 20:54 Cyclobenzaprine Hcl 10 Mg Tablet PO 10 mg QHS FARZANA Administration Dicyclomine HCl 10 mg 10/24/24 22:10 10/25/24 17:29 Dicyclomine Hcl 10 Mg Capsule PO 10 mg TID FARZANA Administration Duloxetine HCl 60 mg 10/25/24 09:00 10/25/24 08:59 Duloxetine Hcl 30 Mg Capsule.Dr PO 60 mg DAILY FARZANA Administration Enoxaparin Sodium 40 mg 10/25/24 09:00 10/25/24 08:59 Enoxaparin 40 Mg/0.4 Ml Syringe SUB-Q 40 mg DAILY FARZANA Administration Gabapentin 600 mg 10/24/24 22:10 10/25/24 17:29 Gabapentin 300 Mg Capsule PO 600 mg TID FARZANA Administration Hydromorphone HCl 1 mg 10/24/24 06:07 10/26/24 06:24 Hydromorphone Hcl Inj (*Crx) 2 Mg/Ml Vial IV PUSH 1 mg Q4H PRN Administration Pain Rated 7-10 Ampicillin Sodium/Sulbactam Sodium 3 gm in 100 mls @ 200 mls/hr 10/24/24 06:10 10/26/24 06:44 Unasyn 3 Gm/Ns 100 Ml IVPB Infused Q6HR FARZANA Infusion Losartan Potassium 25 mg 10/25/24 09:00 10/25/24 08:59 Losartan Potassium 25 Mg Tablet PO 25 mg DAILY FARZANA Administration Ondansetron HCl 4 mg 10/24/24 06:07 10/25/24 17:36 Ondansetron Inj 4 Mg/2 Ml Vial IV PUSH 4 mg Q4H PRN Administration Nausea Quetiapine Fumarate 50 mg 10/25/24 09:00 10/25/24 08:59 Quetiapine Fumarate 25 Mg Tablet PO 50 mg DAILY FARZANA Administration Quetiapine Fumarate 150 mg 10/24/24 21:00 10/25/24 20:54 Quetiapine Fumarate 25 Mg Tablet PO 150 mg HS FARZANA Administration Radiology Results: ITS Impressions Chest X-Ray 10/24/24 00:28 IMPRESSION: No acute cardiopulmonary pathology. Soft Tissue Neck CT 10/24/24 06:31 Impression: No significant abnormalities noted. Labs Labs: Laboratory Results - last 24 hr 10/26/24 06:57 Sodium 138 Potassium 3.8 Chloride 105 Carbon Dioxide 26 Anion Gap 7 BUN 8 Creatinine 0.66 L Estim Creat Clear Calc 126 Estimated GFR > 60 Glucose 99 Calcium 8.8 Total Bilirubin 0.3 AST 25 ALT 13 Alkaline Phosphatase 65 Total Protein 6.6 Albumin 3.7 Quality VTE Prophylaxis VTE prophylaxis: pharmacologic ordered
[2024-10-26 08:44] LABS: Hypochromasia 1+; Platelet Estimate Adequate (Adequate); Schistocytes None Seen
[2024-10-26] MEDS: ENOXAPARIN 40 MG/0.4 ML SYRINGE SUB-Q (09:41)
[2024-10-26] MEDS: DULoxetine HCL 30 MG CAPSULE.DR 60 MG PO (09:42)
[2024-10-26] MEDS: DICYCLOMINE HCL 10 MG CAPSULE PO ×3 (09:42→17:19)
[2024-10-26] MEDS: QUEtiapine FUMARATE 25 MG TABLET 50 MG PO (09:42)
[2024-10-26] MEDS: GABAPENTIN 300 MG CAPSULE 600 MG PO ×3 (09:42→17:19)
[2024-10-26] MEDS: LOSARTAN POTASSIUM 25 MG TABLET PO (09:42)
[2024-10-26 14:00] VITALS: BP 127/66; PULSE 67; RESP 16; TEMP 37.2; O2SAT 100
[2024-10-26] MEDS: HYDROcodone/acetaminophen (*CRX) 5-325 MG TABLET 1 TAB PO ×2 (14:04→20:06)
[2024-10-26] MEDS: QUEtiapine FUMARATE 25 MG TABLET 150 MG PO (20:02)
[2024-10-26] MEDS: CYCLOBENZAPRINE HCL 10 MG TABLET PO (20:02)
[2024-10-26 20:03] VITALS: PULSE 79; RESP 20; O2SAT 97
[2024-10-26 21:05] VITALS: BP 130/90; PULSE 7; RESP 16; TEMP 36.9; O2SAT 100
[2024-10-26] MEDS: ACETAMINOPHEN 325 MG TABLET 650 MG PO (22:52)
[2024-10-26] MEDS: oxyCODONE HCL (*CRX) 5 MG TAB IR PO (22:52)
[2024-10-27] MEDS: oxyCODONE HCL (*CRX) 5 MG TAB IR 10 MG PO (04:23)
[2024-10-27] MEDS: ACETAMINOPHEN 325 MG TABLET 650 MG PO ×2 (05:02→12:35)
[2024-10-27] MEDS: AMPICILLIN SULB 3 GM/NS 100 ML 3 GM/100 ML VIAL IVPB (05:02)
[2024-10-27 05:41] VITALS: BP 128/70; PULSE 71; RESP 16; TEMP 36.8; O2SAT 100
[2024-10-27 06:02] LABS: Basophils Percent Auto 0.8 % (0.2-1.2); Eosinophils Absolute Auto 0.2 K/mm3 (0-0.3); Eosinophils Percent Auto 4.2 % (0-4.4); Hemoglobin 9.9 g/dL (12.0-15.0); Immature Granulocyte Absolute 0.01 K/mm3 (0.00-0.031); Immature Granulocyte Percent A 0.2 % (0-0.5); Lymphocytes Absolute Auto 2.63 K/mm3 (0.9-3.2); Lymphocytes Percent Auto 49.9 % (18.3-44.2); Mean Corpuscular HGB Conc 31.9 g/dl (32-36); Mean Corpuscular Hemoglobin 34.1 pg (26-34); Mean Corpuscular Volume 106.9 fl (80-100); Mean Platelet Volume 8.9 fl (7.4-10.4); Monocytes Absolute Auto 0.5 K/mm3 (0.1-0.6); Monocytes Percent Auto 9.5 % (2.6-8.5); Neutrophils Absolute Auto 1.9 K/mm3 (1.3-6.7); Neutrophils Percent Auto 35.4 % (45.5-73.1); Platelet Count Result 314 k/mm3 (150-375); Red Cell Distribution Width 12.5 % (11.5-14.5); White Blood Count 5.3 K/mm3 (4.5-10.0)
[2024-10-27 06:39] LABS: Alanine Aminotransferase 11 U/L (6-35); Albumin Level 3.6 g/dL (3.5-5.1); Alkaline Phosphatase 60 U/L (38-126); Anion Gap 6 mmol/L (4-12); Aspartate Amino Transferase 24 U/L (14-36); Bilirubin,Total 0.4 mg/dL (0.2-1.3); Blood Urea Nitrogen 7 mg/dL (7-17); Carbon Dioxide 26 mmol/L (22-30); Chloride 105 mmol/L (98-107); Estimated CRCL calculation 126 ml/min; Estimated Glomerular Filt Rate > 60; Glucose 90 mg/dL (65-110); Potassium 3.8 mmol/L (3.4-5.0); Sodium 137 mmol/L (137-145); Total Protein 6.5 g/dL (6.3-8.2)
[2024-10-27 06:40] LABS: Hypochromasia 1+; Macrocytosis 1+ (NORMAL); Platelet Estimate Adequate (Adequate); Schistocytes None Seen
[2024-10-27 08:00] VITALS: O2SAT 100
[2024-10-27] MEDS: ENOXAPARIN 40 MG/0.4 ML SYRINGE SUB-Q (08:42)
[2024-10-27] MEDS: DICYCLOMINE HCL 10 MG CAPSULE PO ×2 (08:45→12:36)
[2024-10-27] MEDS: QUEtiapine FUMARATE 25 MG TABLET 50 MG PO (08:45)
[2024-10-27] MEDS: DULoxetine HCL 30 MG CAPSULE.DR 60 MG PO (08:45)
[2024-10-27] MEDS: GABAPENTIN 300 MG CAPSULE 600 MG PO ×2 (08:45→12:36)
[2024-10-27] MEDS: LOSARTAN POTASSIUM 25 MG TABLET PO (08:45)
[2024-10-27] MEDS: oxyCODONE HCL (*CRX) 5 MG TAB IR PO (08:46)
[2024-10-27] MEDS: ONDANSETRON INJ 4 MG/2 ML VIAL IV PUSH (08:47)
[2024-10-27] MEDS: HYDROmorphone HCL INJ (*CRX) 2 MG/ML VIAL 1 MG IV PUSH (08:47)
[2024-10-27] MEDS: HYDROcodone/acetaminophen (*CRX) 5-325 MG TABLET 1 TAB PO (13:34)
--- NOTE | 2024-10-27 13:56 | P.DS_ITS ---
DS: Admitting Diagnosis Discharge Date 10/27/2024 Admitting Diagnosis Abscess or cellulitis, oral soft tissue DS: Discharge Diagnosis Discharge Diagnosis (1) Abscess or cellulitis, oral soft tissue: Code(s): K12.2 - Cellulitis and abscess of mouth Status: Acute Assessment and Plan: * Several month history of dental infections/abscesses. Seen multiple times in May and this september for similar issue, has been unable to get in to see the dentist. * Failed multiple oral antibiotics: Penicillin, amoxicillin, Augmentin * Admit for IV antibiotics, Unasyn * Soft tissue neck CT: No significant abnormalities noted * CXR: No acute cardiopulmonary pathology. * Blood cultures pending at this time * ENT consultation * Continue Unasyn * No surgical intervention needed at this time * Once clinically better, discharge on oral Clindamycin * Improvement of symptoms today, face/jaw still swollen, more on left, but overall improved since yesterday (2) Right facial swelling: Code(s): R22.0 - Localized swelling, mass and lump, head Status: Acute Assessment and Plan: * See above (3) Anemia, macrocytic: Code(s): D53.9 - Nutritional anemia, unspecified Status: Acute Assessment and Plan: - Hgb 10.3 - transfuse if <7 - trend H&H - 10/26: Hg 10.0 (4) Fibromyalgia: Code(s): M79.7 - Fibromyalgia Status: Acute Assessment and Plan: * Continue at-home medications (5) Anxiety: Code(s): F41.9 - Anxiety disorder, unspecified Status: Acute Assessment and Plan: * Continue Seroquel and duloxetine (6) Hypertension: Code(s): I10 - Essential (primary) hypertension Status: Acute Assessment and Plan: Patient's blood pressure was reviewed on 10/24 Blood pressure remains well controlled. Will continue current medications. Continue losartan Stable Plan DVT prophylaxis: Lovenox 40mg DS: Summary Hospital Course Reason for hospitalization: Dental pain Hospital Course: Danii Almendarez is a 39-year-old female with a past medical history of anemia and tooth pain for the past several months. Patient was seen twice in May and once at the end of September for similar issues. In May she was placed penicillin and amoxicillin, and in September she was placed on Augmentin without any relief. She states that she has been unable to find an opening at her dentist for the past 6 months and states that their office does not have another opening for the next year. She is nontoxic appearing and afebrile. She does endorse some lightheadedness/dizziness yesterday but she believes it was due to her anxiety due to her ongoing and unrelenting pain. She denies any shortness of breath, chest pain, nausea/vomiting, dysphagia. Admitted for some tissue swelling/dental abscess, ENT to be consulted and patient be placed on IV antibiotics. At this time patient does not appear to be in respiratory distress and pain is well controlled. In ED: 97.8F, 104 HR, 16RR, 146/97, 99% on RA WBC 7.9, H&H 10.3 and 32.6, platelet 330. Sodium 139, potassium 4 1, carbon dioxide 29, BUN 12 creatinine 0.77, GFR over 60, glucose 103, LFTs normal EKG: Normal sinus rhythm with rate of 90 ppm, OK interval 152. QRS 102. No T-wave inversions, however flattening throughout Chest x-ray: No acute cardiopulmonary findings Soft tissue neck CT: No significant abnormalities noted ENT was consulted regarding possible cellulitis of the are all soft tissue. They agreed that there was not an abscess formation on the floor of mouth or neck on CT imaging. Recommended continuing IV antibiotics for the next 3-5 days and discharge once clinically improved. Also recommended good oral hygiene using mouthwash every 12 hours and the use of probiotics. For the next few days during her hospitalization, patient continued to improve clinically with a decrease in swelling overall pain. On 10/27, patient was clinically much improved and was able to be discharged with continued p.r.n. pain medications and p.o. clindamycin for continued antibiotic coverage of dental floor infection. Patient has remained otherwise hemodynamically stable with stable blood work and vital signs throughout hospitalization. At no point did she endorse any shortness of breath, chest pain, shortness/vomiting, or dysphagia. Plan for discharge home at this time. She will be given information regarding dental offices that she may be able to get into more recently than her 1 year wait time for her current dentist. Status at Discharge Functional status at discharge: independent ambulation Overall status at discharge: patient is back to baseline Time Spent with Patient Time attestation: Total time spent providing and/or coordinating discharge services: 36 Exam Narrative: Gen - well appearing female in no acute respiratory distress who is nontoxic- appearing lying semi recumbent in bed HEENT -Trismus resolved. Multiple fractured teeth, particularly right and left lower molars. Normocephalic. Atraumatic. Pupils equal round and reactive. Extraocular motions intact. Oropharynx was clear. No oral lesions. Moist mucous membranes. Mildl right submandibular tenderness, swelling improved. Mild left submandibular swelling, improved. Tongue was midline. Palate jackie symmetrically. No facial asymmetry. Neck - neck was supple. No dominant adenopathy, thyromegaly or masses. Chest - lungs are clear to auscultation bilaterally. No wheezes or crackles. CV - heart was regular rate and rhythm. S1-S2. No murmurs gallops or rubs. Abd - abdomen was soft. Nontender. Nondistended. Positive bowel sounds. Ext - no clubbing, cyanosis or edema. Neuro - patient is alert and oriented x4. Strength is 5/5 in both upper and lower extremities. Cranial nerves 2-12 are intact. Speech is clear. Psych - normal mood and affect. Patient is pleasant and cooperative. Skin - warm and dry. No rashes noted. DS: Data Data Completed and Pending Labs on day of discharge: Labs from last 24 hours 10/27/24 05:39 WBC 5.3 RBC 2.90 L Hgb 9.9 L Hct 31.0 L MCV 106.9 H MCH 34.1 H MCHC 31.9 L RDW 12.5 Plt Count 314 MPV 8.9 Immature Gran % (Auto) 0.2 Neut % (Auto) 35.4 L Lymph % (Auto) 49.9 H [place] % (Auto) 9.5 H Eos % (Auto) 4.2 Baso % (Auto) 0.8 Lymph # (Auto) 2.63 [place] # (Auto) 0.5 Eos # (Auto) 0.2 Baso # (Auto) 0.0 Abs Immat Gran (auto) 0.01 Absolute Neuts (auto) 1.9 Absolute Nucleated RBC 0.000 Band Neutrophils % Not Reportable Nucleated RBC % 0.0 Platelet Estimate Adequate Hypochromasia 1+ Macrocytosis 1+ Schistocytes None seen Sodium 137 Potassium 3.8 Chloride 105 Carbon Dioxide 26 Anion Gap 6 BUN 7 Creatinine 0.66 L Estim Creat Clear Calc 126 Estimated GFR > 60 Glucose 90 Calcium 9.0 Total Bilirubin 0.4 AST 24 ALT 11 Alkaline Phosphatase 60 Total Protein 6.5 Albumin 3.6 Preliminary micro results at discharge 10/24/24 06:18 Blood Culture - Preliminary Blood 10/24/24 06:38 Blood Culture - Preliminary Blood Discharge Plan Discharge Attending physician on discharge: Gee Chilel Consulting providers: Sree Colón; Maryt Giron Discharging Clinician: Sree Colón Anticipated Discharge Date/Time: 10/27/24 13:53 Patient Disposition: Home Activity: as tolerated Diet: as tolerated Discharge Instructions: Discharge disposition: Stable Take medications as prescribed. You will be prescribed clindamycin to be taken orally the next 10 days. Monitor blood pressures Take caution while standing, rising, or moving Change positions slowly taking a break between each position change If you standing feel dizzy sit back down and take a break Encouraged to continue with yearly vaccinations Return to the emergency department if he developed sudden shortness of breath, chest pain, nausea, vomiting, upset stomach or intractable diarrhea Return to the emergency department if you develop fever greater than 101.5 Follow-up with the primary care physician within 1-2 weeks Thank you for [facility] for your healthcare needs Patient Instructions: Antibiotic Form Patient Language: Sami Stand Alone Forms: General Discharge Information Follow-up/Referrals: [facility],Healthcare [Primary Care Provider] - Discharge Medications: New hydrocodone-acetaminophen 5-325 mg Tablet 1 tablet PO Q6H PRN (Reason: Pain Rated 4-6) Qty: 6 0RF clindamycin HCl [Cleocin HCl] 300 mg capsule 300 mg PO TID 10 Days Qty: 30 0RF Continued hydrocodone-acetaminophen 5-325 mg tablet 1 tablet PO Q6H PRN (Reason: pain) Qty: 10 0RF losartan [Cozaar] 25 mg tablet 25 mg PO DAILY dicyclomine 10 mg capsule 10 mg PO TID gabapentin 600 mg tablet 600 mg PO TID duloxetine 30 mg capsule,delayed release(DR/EC) 60 mg PO DAILY quetiapine [Seroquel] 100 mg tablet 150 mg PO HS quetiapine [Seroquel] 50 mg tablet 50 mg PO DAILY cyclobenzaprine 10 mg tablet 10 mg PO QHS Date of admission: 10/26/24 09:41 Primary Care Provider: [facility],Healthcare Admitting Provider: Andry Rubi Attending physician on admission: Andry Rubi Condition: Stable Quality VTE Prophylaxis VTE prophylaxis: pharmacologic ordered
== END 2024-10-27 15:03 | disposition home or self-care (01) | DRG 115 ==
LOC: ANHED 10-24 06:07 → ANH3MEDSUR 10-24 06:44
PROVIDERS: Admitting Provider Internal Medicine; Emergency Provider Student in an Organized Health Care Education/Training Program; Visit Provider Physician Assistant
DX: K12.2 Cellulitis and abscess of mouth (principal); D50.9 Iron deficiency anemia, unspecified; M79.7 Fibromyalgia; F41.9 Anxiety disorder, unspecified; I10 Essential (primary) hypertension
CPT/HCPCS: 36415; 70491; 71046; 80053; 81025; 85025; 87040; 93005; 96361; 96374; 96375; 96376; 99285; A9270; G0378; G0379; J0295; J1171; J1650; J2405; J7030; Q9967

== ENCOUNTER 2024-12-08 12:11 | Emergency (ER) | payer OTHER, SELFPAY ==
[2024-12-08 12:13] VITALS: BP 151/107; PULSE 80; RESP 16; TEMP 36.4; O2SAT 97
--- OUTSIDE RECORDS SUMMARY | 2024-12-08 12:13 | XMS_ITS | Encounter Summary ---
Author Organization [facility] Address [address] [place] [address] Phone Care Team Providers Care Resizer Operator Name Role Phone Jose Alfredo Burgos MD Primary Care Provider [phone] Latoya Conroy APRN, ACCOUNTANCY PROFESSOR Unavailable Michael Ibarra MD Unavailable [phone] Reason for Visit * Reason Comments Medication Refill Encounter Details Date Type Department Care Team (Late st Contact Info) Description 08/04/2024 Refill [facility] - [place] [address] [place] [address] Latoya Conroy APRN, ACCOUNTANCY PROFESSOR [address] [place] [address] Medication Refill Social History Tobacco Use Types [...] AM CDT Medication [facility] and [facility] standing order for pediatric and adult patients. documented in this encounter Plan of Treatment Not on file documented as of this encounter Visit Diagnoses Diagnosis Pain of upper abdomen Abdominal pain, other specified site documented in this encounter Care Teams Resizer Operator Relationship Specialty Start Date End Date Jose Alfredo Burgos MD [address] [place] [address] PCP - General Family Medicine 09/16/23 Latoya Conroy APRN, ACCOUNTANCY PROFESSOR [address] [place] [address] Nurse Practitioner Advanced Practice Nurse 12/22/23 Michael Ibarra MD 2 [facility] VICKI WEINST[place] [address] [address] Consulting Physician General Surgery 06/07/24 documented as of this encounter
--- OUTSIDE RECORDS SUMMARY | 2024-12-08 12:13 | XMS_ITS | Encounter Summary ---
Author Organization [facility] Address [address] [facility] [place] [address] Phone Care Team Providers Care Perinatal Educator Name Role Phone Jose Alfredo Burgos MD Primary Care Provider Latoya Conroy APRN, EDUCATION TRAINER Unavailable Michael Ibarra MD Unavailable [phone] Encounter Details Date Type Department Care Team (Late st Contact Info) Description 09/07/2023 Lab [facility]quisition [facility] [address] [place] [address] Madi Tabor, [facility] [address] [place] [address] Encounter for pre-employment examination Social [...] 0.12 <8.01 IU/mL 09/09/2023 10:31 AM CDT [facility] TB ANTIGEN 1 0.01 <0.35 IU/mL 09/09/2023 10:31 AM CDT [facility] TB ANTIGEN 2 0.01 <0.35 IU/mL 09/09/2023 10:31 AM CDT [facility] MITOGEN CONTROL 9.88 >0.49 IU/mL 09/09/19 10:31 AM CDT [facility] INTEPRETATION TB NEGATIVE NEGATIVE, NEGATIVE (TB antigen response less than 25% of internal negative control value) 09/09/2023 10:31 AM CDT [facility] Comment:No immune response t o Mycobacterium tuberculosis antigens was noted. M. tuberculosis infection unlikely. Blood No Phlebotomy Charged / Unknown 09/07/2023 10:05 AM CDT 09/07/2023 3:10 PM CDT Narrative [facility] - 09/09/2023 10:31 AM CDT A POSITIVE [...] otherwise immunocompromised individuals. https://www.cdc.gov/tb/publications/guidelines/testing.htm us Madi Tabor [facility] IMMUNOLOGY ORDERABLES Final Result [facility] [address] [place] [address], documented in this encounter Visit Diagnoses Diagnosis Encounter for pre-employment examination Health examination of defined subpopulation documented in this encounter Care Teams Perinatal Educator Relationship Specialty Start Date End Date Jose Alfredo Burgos MD [address] [place] [address] [place] [address] PCP - General Family Medicine 09/16/23 Latoya Conroy APRN, RIC [address] [place] [address] Nurse Practitioner Advanced Practice Nurse 12/22/23 Michael Ibarra MD 2 [facility] [address] [address] Consulting Physician General Surgery 06/07/24 documented as of this encounter
--- OUTSIDE RECORDS SUMMARY | 2024-12-08 12:13 | XMS_ITS | Clinical Summary ---
Author Organization [facility] Address [address] [place] [address] Phone Care Team Providers Care Plant Specialist Name Role Phone Jose Alfredo Burgos MD Primary Care Provider [phone] Latoya Conroy APRN, MANAGER PSYCHOLOGY Unavailable Michael Ibarra MD Unavailable [phone] Medications HYDROcodone-dayana taminophen (NORCO) 5-325 MG Tablet Take 1 Tablet by mouth. 08/24/19 16 Active ondansetron (ZOFRAN-ODT) 4 MG TABLET DISPERSIBLE DISSOLVE 1 TABLET ON THE TONGUE FOUR TIMES DAILY FOR 7 DAYS NEEDED FOR NAUSEA OR VOMITING Active chlorhexidine (PERIDEX) 0.12 % Solution 10 mL. 11/25/19 24 Active cyclobenzaprine (FLEXERIL) 5 MG Tablet TAKE 1 TABLET BY MOUTH THREE TIMES DAILY FOR 21 DAYS NEEDED 12/05/19 24 Active DULoxetine (CYMBALTA) [address] Particles Take 30 mg by mouth daily. 12/13/19 24 Active gabapentin (NEURONTIN) 600 MG Tablet Take 600 mg by mouth 3 times daily. Active losartan (COZAAR) 25 MG Tablet every morning. 12/03/19 24 Active QUEtiapine Fumarate (SEROquel) 50 MG Tablet TAKE 4 TABLETS BY MOUTH EVERY DAY DIRECTED Active sucralfate (CARAFATE) 1 GM Tablet TAKE 1 TABLET BY MOUTH FOUR TIMES DAILY 10/11/19 24 Active promethazine (PHENERGAN) 25 MG TabletIndicatio ns:Nausea and vomiting, unspecified vomiting type Take 1 Tablet by mouth every 6 hours as needed for Nausea - 1st line. 30 Tablet 12/21/19 24 Active Additional Information Patient not taking.Reported on 06/07/2024 Acetaminophen (TYLENOL PO) Take 500 mg by mouth as needed. Active acetaminophen-c odeine (TYLENOL #3) 300-30 MG TabletIndicatio ns:Pain, dental Take 1-2 Tablets by mouth every 4 hours as needed for Moderate or more severe pain. 20 Tablet 08/10/19 25 Active dicyclomine (BENTYL) 10 MG CapsuleIndicati ons:Pain of upper abdomen TAKE ONE CAPSULE BY MOUTH THREE TIMES DAILY BEFORE A MEAL 90 Capsule 3 11/30/19 25 Active dicyclomine (BENTYL) 10 MG CapsuleIndicati ons:Pain of upper abdomen TAKE ONE CAPSULE BY MOUTH THREE TIMES DAILY BEFORE A MEAL 90 Capsule 3 08/07/19 25 025 Discontinued Active Problems Problem Noted Date Diagnosed Date Chronic diarrhea 12/16/2022 Cannabis abuse 12/16/2022 Encounters Date Type Department Care Team Description 11/29/2024 Refill [facility] - [facility] [address] [place] [address] Latoya Conroy APRN, MANAGER PSYCHOLOGY Medication Refill from Last 3 Months Family [...] of 3 - 3-dose series) 01/15/1998 12/18/1997 Human Papillomavirus (HPV) Immunization (1 - 3-dose series) 2001 Pneumococcal Immunization Combined (1 of 2 - PCV) 2005 Pap Smear 2007 Cervical Cancer Screening (CCS) 2016 HPV/Cotest 2016 SARS-COV-2 Immunization ( - season) 2024 Influenza Immunization (#1) 2025 Respiratory Syncytial Virus (RSV) Immunization (Adult) (1 - 1-dose 75+ series) 2061 TdaP Immunization Completed 07/02/2015, 04/30/2013, 09/21/2010 Meningococcal Immunization (ACWY) Aged Out No longer eligible b ased on patient's age to complete this topic Rotavirus Immunization Aged Out No lo nger eligible based on patient's age to complete this topic Insurance [place]ICAID [place] * Guarantor: [facility] Account Type Relation to Patient Date of Phone Billing Address Institutional Other [address] [place] [address] Care Teams Plant Specialist Relationship Specialty Start Date End Date Jose Alfredo Burgos MD [address] [facility] [place] [address] PCP - General Family Medicine 09/16/23 Latoya Conroy APRN, MANAGER PSYCHOLOGY [address] [place] [address] Nurse Practitioner Advanced Practice Nurse 12/22/23 Michael Ibarra MD 2 [facility] VICK[place] [address] [address] Consulting Physician General Surgery 06/07/24
--- OUTSIDE RECORDS SUMMARY | 2024-12-08 12:13 | XMS_ITS ---
Author Organization [facility] Address [address] [place] [address] Phone Care Team Providers Care Shot Polisher And Inspector Name Role Phone Jose Alfredo Burgos MD Primary Care Provider [phone] Latoya Conroy APRN, REIKI PRACTITIONER Unavailable Michael Ibarra MD Unavailable [phone] [facility] Status:Enrolled (Active) Start date:06/20/2024 Enrollment date:06/20/2024 Related social drivers of health:Intimate Partner Violence, Social Connections, Alcohol Use, Tobacco Use, Financial Resource Strain,Depression, Stress, Physical Activity, Food Insecurity, Transportation Needs, Housing Stability, Utilities Continued Care and Services Coordination
--- OUTSIDE RECORDS SUMMARY | 2024-12-08 12:13 | XMS_ITS | Referral Summary ---
Author Organization [facility] Address [address] [place] [address] Care Team Providers Care Morale Officer Name Role Phone Jose Alfredo Burgos MD Primary Care Provider [phone] Encounters Date Type Department Care Team Description 11/15/2024 10:04 PM CDT - 11/16/2024 12:27 AM T Emergency [facility] Emergency Department [address] [place] [address] Huang Hwang MD PhD Dental abscess (Primary Dx) Discharge Disposition: Discharge to home or self care 09/26/2024 9:05 AM CDT - 09/26/2024 10:59 AM CDT Emergency [facility] Emergency Department [address] [place], [place] [id number] Saba Montano MD Pain due to dental [...] needed for pain 12 tablet 5 Active oxyCODONE (ROXICODONE) 5 mg immediate release tabletIndicati ons:Pain Take 1 tablet (5 mg total) by mouth every 4 (four) hours as needed for pain 10 tablet 5 Active amoxicillin-cl avulanate (AUGMENTIN) 875-125 mg per tabletIndicati ons:dental abscess Take 1 tablet by mouth 2 (two) times a day for 10 days 20 tablet 5 025 Active Problems Problem Noted [...] making you feel afraid or unsafe? Denies 11/15/2024 Comments No Sex and Gender Information Value Date Recorded Sex Assigned at Not on file Legal Sex Female 4:35 PM DAY CARE ASSISTANT Gender Identity Not on file Sexual Orientation Not on file Last Filed Vital Signs Vital Sign Reading Time Taken Comments Blood Pressure 117/80 11/15/2024 11:39 PM CDT Pulse 82 11/15/2024 11:39 PM CDT Temperature 37.2 C (98.9 F) 11/15/2024 9:28 PM CDT Respiratory Rate 16 11/15/2024 11:39 PM CDT Oxygen Saturation 98% 11/15/2024 11:39 PM CDT Inhaled Oxygen Concentration - - Weight 90 kg (198 lb 6.6 oz) 11/15/2024 9:28 PM CDT Height 178 cm (5' 10.08) 11/15/2024 9:28 PM CDT Body Mass Index 28.41 11/15/2024 9:28 PM CDT Plan of Treatment Not on file Procedures Procedure Name Priority Date/Time Associated Diagnosis Comments EGFR STAT 11/15/2024 10:55 PM CDT BASIC METABOLIC PANEL STAT 11/15/2024 10:55 PM CDT CBC WITHOUT DIFFERENTIAL STAT 11/15/2024 10:55 PM CDT XR HAND RIGHT 3 OR MORE VIEWS ED 09/26/2024 9:38 AM CDT from Last 3 Months Results * eGFR (11/15/2024 10:55 PM CDT) eGFR >90 >=60 mL/min/1. 73 m2 Comment: Interpretive Data Reference Interval Normal >/= 90 mL/min/1.73m2 Mildly decreased* 60 - 89 mL/min/1.73m2 Mildly to moderately decreased 45 - 59 mL/min/1.73m2 Moderately to severely decreased 30 - 44 mL/min/1.73m2 Severely decreased 15 - 29 mL/min/1.73m2 Kidney Failure < 15 mL/min/1.73m2 *Relative to young adult level Estimated glomerular filtration rate is determined by the 2020 CKD-EPI equation recommended by the National Kidney Foundation (A Unifying Approach to GFR Estimation: Recommendations of the NKF-ASK Task Force on Reassessing the Inclusion of Race in Diagnosing Kidney Disease, JASN 202). The CKD-EPI equation should not be used for patients with unstable renal function and has not been validated in children and those over 70. Current interpretive data was last reviewed 2021. Blood 11/15/2024 10:5 5 PM CDT 11/15/2024 11:10 PM CDT us Victor M Barry MD LAB BLOOD ORDERABLES Final Resul t [facility] Department [place] [address] * (ABNORMAL) CBC without differential (11/15/2024 10:55 PM CDT) WBC 6.85 3.80 - 9.90 K/cumm Hgb 10.8(L) 11.9 - 15.5 g/dL [facility] Hct 33.0(L) 35.6 - 45.5 % [facility] Plt 383 150 - 400 K/cumm [facility] MPV 8.9(L) 9.1 - 12.3 fL [facility] RBC 3.20(L) 3.90 - 5.20 M/cumm [facility] MCV 103.1(H) 81.3 - 96.4 fL [facility] MCH 33.8(H) 27.1 - 33.3 pg [facility] MCHC 32.7 32.3 - 35.7 g/dL [facility] RDW CV 12.8 11.1 - 14.9 % [facility] RDW SD 48.1 35.7 - 48.1 fL [facility] NRBC abs 0.00 0.00 - 0.01 K/cumm [facility] Blood 11/15/2024 10:5 5 PM CDT 11/15/2024 11:10 PM CDT Victor M Barry MD LAB BLOOD ORDERABLES Final Resul t Performing Organization Address [facility] de Phone Number [facility] Department [place] [address] * Basic metabolic panel (11/15/2024 10:55 PM CDT) Pathologist [facility] Sodium 140 135 - 145 mmol/L Potassium, pl 3.5 3.3 - 4.9 mmol/L [facility] Chloride 105 97 - 110 mmol/L [facility] CO2 25 22 - 32 mmol/L [facility] Anion gap 10 2 - 15 mmol/L [facility] BUN 9 6 - 25 mg/dL [facility] Creatinine 0.67 0.60 - 1.10 mg/dL [facility] Glucose 99 70 - 199 mg/dL [facility] Comment: Interpretive Data Fasting glucose >/= 126 mg/dl is diagnostic for diabetes. Fasting is defined as no caloric intake [...] interpretive data was last revised 2022. Calcium 9.8 8.5 - 10.3 mg/dL [facility] Blood 11/15/2024 10:5 5 PM CDT 11/15/2024 11:10 PM CDT Victor M Barry MD LAB BLOOD ORDERABLES Final Resul t Performing Organization Address [facility] de Phone Number [facility] Department [place] [address] * XR Hand Right 3 or More [...] Shantell Londono M.D. FT: FT Report ID: [id number] Reading Location: [id number] Procedure Note Shantell Valle MD - 09/26/2024 [...] Shantell Londono M.D. FT: FT Report ID: [id number] Reading Location: [id number] Saba Montano MD IMG XR PROCEDURES F inal Result from Last 3 Months Insurance [facility] Care Teams Morale Officer Relationship Specialty Start Date End Date Jose Alfredo Burgos MD [address] [place] [address] [place] [address] PCP - General Family Medicine 10/14/23
--- OUTSIDE RECORDS SUMMARY | 2024-12-08 12:13 | XMS_ITS | Clinical Summary ---
Author Organization [facility] Address [address] [place] [address] Care Team Providers Care Tile Mechanic Helper Name Role Phone Jose Alfredo Burgos MD Primary Care Provider [phone] Allergies No known active allergies Medications dextroamphetam [...] 10:04 PM CDT - 11/16/2024 12:27 AM CDT Emergency [facility] Emergency Department 1 [place] [address] Huang Hwang MD PhD Dental abscess (Primary Dx) Discharge Disposition: Discharge to home or self care 09/26/2024 9:05 AM CDT - 09/26/2024 10:59 AM CDT Emergency [facility] Emergency Department 1 [place] [address] Saba Montano MD Pain due to dental [...] on file 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 Gender Identity Not on file Sexual Orientation [...] 11/15/2024 9:28 PM CDT Plan of Treatment Health Maintenance [...] MD LAB BLOOD ORDERABLES Final Resul t [facility] Department [place] [address] * (ABNORMAL) CBC without differential (11/15/2024 10:55 PM CDT) WBC 6.85 3.80 - 9.90 K/cumm Hgb 10.8(L) 11.9 - 15.5 g/dL [facility] Hct 33.0(L) 35.6 - 45.5 % [facility] Plt 383 150 - 400 K/cumm [facility] MPV 8.9(L) 9.1 - 12.3 fL [facility] RBC 3.20(L) 3.90 - 5.20 M/cumm [facility] MCV 103.1(H) 81.3 - 96.4 fL [facility] MCH 33.8(H) 27.1 - 33.3 pg [facility] MCHC 32.7 32.3 - 35.7 g/dL [facility] RDW CV 12.8 11.1 - 14.9 % [facility] RDW SD 48.1 35.7 - 48.1 fL [facility] NRBC abs 0.00 0.00 - 0.01 K/cumm [facility] Blood 11/15/2024 10:5 5 PM CDT 11/15/2024 11:10 PM CDT Victor M aBrry MD LAB BLOOD ORDERABLES Final Resul t [facility] Department [place] [address] * Basic metabolic panel (11/15/2024 10:55 PM CDT) Sodium 140 135 - 145 mmol/L Potassium, pl 3.5 3.3 - 4.9 mmol/L [facility] Chloride 105 97 - 110 mmol/L [facility] CO2 25 22 - 32 mmol/L [facility] Anion gap 10 2 - 15 mmol/L [facility] BUN 9 6 - 25 mg/dL [facility] Creatinine 0.67 0.60 - 1.10 mg/dL [facility] Glucose 99 70 - 199 mg/dL [facility] Comment: Interpretive Data Fasting glucose >/= [...] 2022. Calcium 9.8 8.5 - 10.3 mg/dL [facility] Blood 11/15/2024 10:5 5 PM CDT 11/15/2024 11:10 PM CDT us Victor M Barry MD LAB BLOOD ORDERABLES Final Resul t [facility] Department [place] [address] * XR Hand Right 3 or More [...] Shantell Londono M.D. FT: FT Report ID: [id number] Reading Location: [id number] Procedure Note Shantell Valle MD - 09/26/2024 [...] Shantell Londono M.D. FT: FT Report ID: [id number] Reading Location: [place] [address] Saba Montano MD IMG XR PROCEDURES F inal Result from Last 3 Months Insurance [facility] Care Teams Tile Mechanic Helper Relationship Specialty Start Date End Date Jose Alfredo Burgos MD 4 [facility] [address] [place] [address] PCP - General Family Medicine 10/14/23
--- OUTSIDE RECORDS SUMMARY | 2024-12-08 12:13 | XMS_ITS | Encounter Summary ---
Author Organization [facility] Address [address] [place] [address] Phone Care Team Providers Care Hand Wood Sander Name Role Phone Jose Alfredo Burgos MD Primary Care Provider [phone] Latoya Conroy APRN, LAYOUT MECHANIC Unavailable Michael Ibarra MD Unavailable [phone] Reason for Visit * Reason Comments Medication Refill Encounter Details Date Type Department Care Team (Late st Contact Info) Description 04/13/2024 Refill [facility] - [place] [address] [place] [address] Latoya Conroy APRN, LAYOUT MECHANIC [address] [place] [address] Medication Refill Social History Tobacco Use Types [...] Tete Jean RN - 04/13/2024 8:08 AM CHALK MOLDING MACHINE OPERATOR Medication refilled and signed per [facility] chronic medication standing order for pediatric and adult patients. K MOLDING MACHINE OPERATOR documented in this encounter Plan of Treatment Not on file documented as of this encounter Visit Diagnoses Diagnosis Pain of upper abdomen Abdominal pain, other specified site documented in this encounter Care Teams Hand Wood Sander Relationship Specialty Start Date End Date Jose Alfredo Burgos MD [address] [place] [address] PCP - General Family Medicine 09/16/23 Latoya Conroy APRN, LAYOUT MECHANIC #[address] [facility] [address] Nurse Practitioner Advanced Practice Nurse 12/22/23 Michael Ibarra MD 2 [facility] [address] Consulting Physician General Surgery 06/07/24 documented as of this encounter
--- NOTE | 2024-12-08 12:55 | ED.GENADULT ---
HPI - General Adult General Chief complaint: Dental/Oral Stated complaint: dental pain Time Seen by Provider: 12/08/24 12:37 History of Present Illness HPI narrative: This is a 39-year-old female with poor dentition presenting for dental pain. This is an ongoing problem for many months. She has not been able to get in to see a dentist. She continues to go to Urgent dentists but she does not call have her make an appointment just shows up in sees at the office is already full and leaves. Patient denies any fevers or difficulty swallowing. She is speaking in normal voice. She she has been using Motrin Tylenol for pain with minimal relief. Related Data Home Medications ?Medication ?Instructions ?Recorded ?Confirmed ?Last Taken ?Type cyclobenzaprine 10 mg tablet 10 mg PO QHS 10/24/24 10/24/24 10/23/24 History dicyclomine 10 mg capsule 10 mg PO TID 10/24/24 10/24/24 10/23/24 History duloxetine 30 mg capsule,delayed 60 mg PO DAILY 10/24/24 10/24/24 10/23/24 History release gabapentin 600 mg tablet 600 mg PO TID 10/24/24 10/24/24 10/23/24 History losartan 25 mg tablet (Cozaar) 25 mg PO DAILY 10/24/24 10/24/24 10/23/24 History quetiapine 100 mg tablet (Seroquel) 150 mg PO HS 10/24/24 10/24/24 10/23/24 History quetiapine 50 mg tablet (Seroquel) 50 mg PO DAILY 10/24/24 10/24/24 10/23/24 History Allergies Allergy/AdvReac Type Severity Reaction Status Date / Time No Known Drug Allergies Allergy NA Verified 12/08/24 12:18 [facility] Past Medical History Medical History (Updated 12/08/24 @ 12:58 by Edson Hernandez MD) Right facial swelling Social History Social History (Updated 06/21/24 @ 14:05 by Marii Warner PA-C) Smoking status: Current every day smoker Alcohol intake: never Substance use: current Substance use type: marijuana Last use: 2 1/2 weeks ago Do You Feel Safe in your Home?: Yes Lack of Transportation: No Lack of Food: Never True Current Housing: I Have Housing Concerned About Future Housing: No Difficulty Paying Gas/Electric Bills: No Difficulty Paying for Meds: No Currently Unemployed: No Education: High School Diploma/GED Difficulty w/ Childcare or Family Care: No Spiritual care concerns: No Exam Narrative: APPEARANCE: No apparent distress. Speaking in a normal voice Head: Poor dentition multiple teeth rotted below the gum line, no identifiable abscess, mild swelling along the left jawline EYES: EOMI, NOSE: Atraumatic NECK: Trachea midline RESPIRATORY: No increased rate of breathing CARDIOVASCULAR: RRR, ABDOMINAL: Non-distended MUSCULOSKELETAl: No obvious deformities NEURO: Alert. Moving 4/4 extremities SKIN:: Warm, dry. Normal color PSYCHIATRIC: Normal affect Course Vital Signs Vital signs: Vital Signs Temperature 97.6 F 12/08/24 12:13 Pulse Rate 80 12/08/24 12:13 Respiratory Rate 16 12/08/24 12:13 Blood Pressure 151/107 H 12/08/24 12:13 Pulse Oximetry 97 12/08/24 12:13 Oxygen Delivery Room Air 12/08/24 12:13 Temperature 97.6 F 12/08/24 12:13 Pulse Rate 80 12/08/24 12:13 Respiratory Rate 16 12/08/24 12:13 Blood Pressure 151/107 H 12/08/24 12:13 Pulse Oximetry 97 12/08/24 12:13 Oxygen Delivery Room Air 12/08/24 12:13 Medical Decision Making MDM Narrative Medical decision making narrative: -Course: 39-year-old female presenting with dental pain. I told the patient I would treat her pain with Motrin and Tylenol. Patient says that that does not work and she is requesting something stronger. I informed her that I would not be treating her with opiate pain medications. She then declined all interventions and left the hospital stating she would go somewhere else. -DDX includes but is not limited to: dental caries, dental abscess, Vital Signs Vital Signs: Vital Signs Temperature 97.6 F 12/08/24 12:13 Pulse Rate 80 12/08/24 12:13 Respiratory Rate 16 12/08/24 12:13 Blood Pressure 151/107 H 12/08/24 12:13 Pulse Oximetry 97 12/08/24 12:13 Oxygen Delivery Room Air 12/08/24 12:13 Temperature 97.6 F 12/08/24 12:13 Pulse Rate 80 12/08/24 12:13 Respiratory Rate 16 12/08/24 12:13 Blood Pressure 151/107 H 12/08/24 12:13 Pulse Oximetry 97 12/08/24 12:13 Oxygen Delivery Room Air 12/08/24 12:13 Discharge Plan Discharge Clinical Impression: Drug-seeking behavior, Pain, dental Patient Disposition: Home Condition: Stable Instructions: Antibiotic Form, Toothache (ED) Additional Instructions: Please use Motrin Tylenol for pain control. Use amoxicillin to treat any dental infection. It is important that you follow-up with a dentist. Patient Language: Chinese Prescriptions: No Action hydrocodone-acetaminophen 5-325 mg tablet 1 tablet PO Q6H PRN (Reason: pain) Qty: 10 0RF losartan [Cozaar] 25 mg tablet 25 mg PO DAILY dicyclomine 10 mg capsule 10 mg PO TID gabapentin 600 mg tablet 600 mg PO TID duloxetine 30 mg capsule,delayed release(DR/EC) 60 mg PO DAILY quetiapine [Seroquel] 100 mg tablet 150 mg PO HS quetiapine [Seroquel] 50 mg tablet 50 mg PO DAILY cyclobenzaprine 10 mg tablet 10 mg PO QHS hydrocodone-acetaminophen 5-325 mg Tablet 1 tablet PO Q6H PRN (Reason: Pain Rated 4-6) Qty: 6 0RF clindamycin HCl [Cleocin HCl] 300 mg capsule 300 mg PO TID 10 Days Qty: 30 0RF Follow-up/Referrals: PHYSICIAN NOT ON STAFF,NONSTAFF [Non-Staff] - Stand Alone Forms: Work/School Release IP
--- NOTE | 2024-12-08 13:00 | PC.NURSE ---
Pt. walked out prior to receiving d/c instructions.
--- OUTSIDE RECORDS SUMMARY | 2024-12-08 13:00 | XMS_ITS | Encounter Summary ---
Author Organization [facility] Address [address] [place] [address] Phone Care Team Providers Care Atomic Physics Professor Name Role Phone Jose Alfredo Burgos MD Primary Care Provider [phone] Latoya Conroy APRN, BIODIESEL PLANT OPERATIONS ENGINEER Unavailable Michael Ibarra MD Unavailable [phone] Reason for Visit * Reason Comments Medication Refill Encounter Details Date Type Department Care Team (Late st Contact Info) Description 08/04/2024 Refill [facility] - [facility]ology - [place] [address] [place] [address] Latoya Conroy APRN, BIODIESEL PLANT OPERATIONS ENGINEER [address] [place] [address] Medication Refill Social History Tobacco Use Types [...] AM CDT Medication [facility]illed and signed [facility] order for pediatric and adult patients. documented in this encounter Plan of Treatment Not on file documented as of this encounter Visit Diagnoses Diagnosis Pain of upper abdomen Abdominal pain, other specified site documented in this encounter Care Teams Atomic Physics Professor Relationship Specialty Start Date End Date Jose Alfredo Burgos MD [address] [place] [address] PCP - General Family Medicine 09/16/23 Latoya Conroy APRN, BIODIESEL PLANT OPERATIONS ENGINEER [address] [place] [address] Nurse Practitioner Advanced Practice Nurse 12/22/23 Michael Ibarra MD 2 [facility] [address] [address] Consulting Physician General Surgery 06/07/24 documented as of this encounter
--- OUTSIDE RECORDS SUMMARY | 2024-12-08 13:01 | XMS_ITS | Encounter Summary ---
Author Organization [facility] Address [address] [facility] [place] [address] Phone Care Team Providers Care Visual Education Teacher Name Role Phone Jose Alfredo Burgos MD Primary Care Provider Latoya Conroy APRN, ELECTRONICS REPAIR TECHNICIAN Unavailable Michael Ibarra MD Unavailable [phone] Encounter Details Date Type Department Care Team (Late st Contact Info) Description 09/07/2023 Lab [facility] [address] [place] [address] Madi Tabor, [facility] [address] [place] [address] Encounter for pre-employment examination Social [...] 0.12 <8.01 IU/mL 09/09/2023 10:31 AM CDT [facility] TB ANTIGEN 1 0.01 <0.35 IU/mL 09/09/2023 10:31 AM CDT [facility] TB ANTIGEN 2 0.01 <0.35 IU/mL 09/09/2023 10:31 AM CDT [facility] MITOGEN CONTROL 9.88 >0.49 IU/mL 09/09/19 10:31 AM CDT [facility] INTEPRETATION TB NEGATIVE NEGATIVE, NEGATIVE (TB antigen response less than 25% of internal negative control value) 09/09/2023 10:31 AM CDT [facility] Comment:No immune response t o Mycobacterium tuberculosis antigens was noted. M. tuberculosis infection unlikely. Blood No Phlebotomy Charged / Unknown 09/07/2023 10:05 AM CDT 09/07/2023 3:10 PM CDT Narrative [facility] - 09/09/2023 10:31 AM CDT A POSITIVE [...] otherwise immunocompromised individuals. https://www.cdc.gov/tb/publications/guidelines/testing.htm us Madi Tabor [facility] IMMUNOLOGY ORDERABLES Final Result [facility] [address] [place] [address], documented in this encounter Visit Diagnoses Diagnosis Encounter for pre-employment examination Health examination of defined subpopulation documented in this encounter Care Teams Visual Education Teacher Relationship Specialty Start Date End Date Jose Alfredo Burgos MD [address] [place] [address] [place] [address] PCP - General Family Medicine 09/16/23 Latoya Conroy APRN, RIC [address] [place] [address] Nurse Practitioner Advanced Practice Nurse 12/22/23 Michael Ibarra MD 2 [facility] [address] [address] Consulting Physician General Surgery 06/07/24 documented as of this encounter
--- OUTSIDE RECORDS SUMMARY | 2024-12-08 13:01 | XMS_ITS | Encounter Summary ---
Author Organization [facility] Address [address] [place] [address] Phone Care Team Providers Care Nurse Office Name Role Phone Jose Alfredo Burgos MD Primary Care Provider [phone] Latoya Conroy APRN, EXECUTIVE WELLNESS PROGRAMS DIRECTOR Unavailable Michael Ibarra MD Unavailable [phone] Reason for Visit * Reason Comments Medication Refill Encounter Details Date Type Department Care Team (Late st Contact Info) Description 04/13/2024 Refill [facility] - [facility]ology - [place] [address] [place] [address] Latoya Conroy APRN, EXECUTIVE WELLNESS PROGRAMS DIRECTOR [address] [place] [address] Medication Refill Social History Tobacco Use Types [...] Tete Jean RN - 04/13/2024 8:08 AM COMMUNICATIONS TECHNICIAN Medication refilled and signed per [facility] chronic medication standing order for pediatric and adult patients. UNICATIONS TECHNICIAN documented in this encounter Plan of Treatment Not on file documented as of this encounter Visit Diagnoses Diagnosis Pain of upper abdomen Abdominal pain, other specified site documented in this encounter Care Teams Nurse Office Relationship Specialty Start Date End Date Jose Alfredo Burgos MD [address] [place] [address] PCP - General Family Medicine 09/16/23 Latoya Conroy APRN, EXECUTIVE WELLNESS PROGRAMS DIRECTOR #2 [facility] [place] [address] Nurse Practitioner Advanced Practice Nurse 12/22/23 Michael Ibarra MD 2 [address] [address] Consulting Physician General Surgery 06/07/24 documented as of this encounter
--- OUTSIDE RECORDS SUMMARY | 2024-12-08 13:01 | XMS_ITS | Referral Summary ---
Author Organization [facility] Address [address] [place] [address] Care Team Providers Care Satellite Instruction Facilitator Name Role Phone Jose Alfredo Burgos MD Primary Care Provider [phone] Encounters Date Type Department Care Team Description 11/15/2024 10:04 PM CDT - 11/16/2024 12:27 AM T Emergency [facility] Emergency Department [address] [place] [address] Huang Hwang MD PhD Dental abscess (Primary Dx) Discharge Disposition: Discharge to home or self care 09/26/2024 9:05 AM CDT - 09/26/2024 10:59 AM CDT Emergency [facility] Emergency Department [address] [place], [place] [address] Saba Montano MD Pain due to dental [...] on file 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 Department [place] [address] * (ABNORMAL) CBC without differential (11/15/2024 10:55 PM CDT) WBC 6.85 3.80 - 9.90 K/cumm Hgb 10.8(L) 11.9 - 15.5 g/dL [facility] Hct 33.0(L) 35.6 - 45.5 % [facility] Plt 383 150 - 400 K/cumm [facility] MPV 8.9(L) 9.1 - 12.3 fL [facility] RBC 3.20(L) 3.90 - 5.20 M/cumm [facility] MCV 103.1(H) 81.3 - 96.4 fL [facility] MCH 33.8(H) 27.1 - 33.3 pg [facility] MCHC 32.7 32.3 - 35.7 g/dL [facility] RDW CV 12.8 11.1 - 14.9 % [facility] RDW SD 48.1 35.7 - 48.1 fL [facility] NRBC abs 0.00 0.00 - 0.01 K/cumm [facility] Blood 11/15/2024 10:5 5 PM CDT 11/15/2024 11:10 PM CDT Victor M Barry MD LAB BLOOD ORDERABLES Final Resul t Performing Organization Address [facility] de Phone Number [facility] Department [place] [address] * Basic metabolic panel (11/15/2024 10:55 PM CDT) Pathologist [facility] Sodium 140 135 - 145 mmol/L Potassium, pl 3.5 3.3 - 4.9 mmol/L [facility] Chloride 105 97 - 110 mmol/L [facility] CO2 25 22 - 32 mmol/L [facility] Anion gap 10 2 - 15 mmol/L [facility] BUN 9 6 - 25 mg/dL [facility] Creatinine 0.67 0.60 - 1.10 mg/dL [facility] Glucose 99 70 - 199 mg/dL [facility] Comment: Interpretive Data Fasting glucose >/= [...] 2022. Calcium 9.8 8.5 - 10.3 mg/dL [facility] Blood 11/15/2024 10:5 5 PM CDT 11/15/2024 11:10 PM CDT Victor M Barry MD LAB BLOOD ORDERABLES Final Resul t Performing Organization Address [facility] de Phone Number [facility] Department [place] [address] * XR Hand Right 3 or More [...] Shantell Londono M.D. FT: FT Report ID: [id number] Reading Location: [id number] Procedure Note Shantell Valle MD - 09/26/2024 [...] Shantell Londono M.D. FT: FT Report ID: [id number] Reading Location: [id number] Saba Montano MD IMG XR PROCEDURES F inal Result from Last 3 Months Insurance [facility] Care Teams Satellite Instruction Facilitator Relationship Specialty Start Date End Date Jose Alfredo Burgos MD [address] [place] [address] [place] [address] PCP - General Family Medicine 10/14/23
--- OUTSIDE RECORDS SUMMARY | 2024-12-08 13:01 | XMS_ITS | Clinical Summary ---
Author Organization [facility] Address [address] [place] [address] Phone Care Team Providers Care Survey Technologist Name Role Phone Jose Alfredo Burgos MD Primary Care Provider [phone] Latoya Conroy APRN, FIELD SERVICE TECH Unavailable Michael Ibarra MD Unavailable [phone] Medications HYDROcodone-dayana taminophen (NORCO) 5-325 MG Tablet [...] 11/29/2024 Refill [facility] - G[facility]enterology [facility] [address] [place] [address] Latoya Conroy APRN, FIELD SERVICE TECH Medication Refill from Last 3 Months Family [...] age to complete this topic Insurance [place] * Guarantor: [facility] Account Type Relation to Patient Date of Phone Billing Address Institutional Other [address] [place] [address] Care Teams Survey Technologist Relationship Specialty Start Date End Date Jose Alfredo Burgos MD 4 [facility] [place] [address] PCP - General Family Medicine 09/16/23 Latoya Conroy APRN, FIELD SERVICE TECH [address] [place] [address] Nurse Practitioner Advanced Practice Nurse 12/22/23 Michael Ibarra MD 2 [facility] [address] [address] Consulting Physician General Surgery 06/07/24
--- OUTSIDE RECORDS SUMMARY | 2024-12-08 13:01 | XMS_ITS ---
Author Organization [facility] Address [address] [place] [address] Phone Care Team Providers Care Metalizing Machine Operator Automatic Name Role Phone Jose Alfredo Burgos MD Primary Care Provider [phone] Latoya Conroy APRN, INSULATION INSPECTOR Unavailable Michael Ibarra MD Unavailable [phone] [facility] Status:Enrolled (Active) Start date:06/20/2024 Enrollment date:06/20/2024 Related social drivers of health:Intimate Partner Violence, Social Connections, Alcohol Use, Tobacco Use, Financial Resource Strain,Depression, Stress, Physical Activity, Food Insecurity, Transportation Needs, Housing Stability, Utilities Continued Care and Services Coordination
--- OUTSIDE RECORDS SUMMARY | 2024-12-08 13:01 | XMS_ITS | Clinical Summary ---
Author Organization [facility] Address [address] [place] [address] Care Team Providers Care Business Applications Analyst Name Role Phone Jose Alfredo Burgos MD Primary Care Provider [phone] Allergies No known active allergies Medications dextroamphetam [...] CDT - 11/16/2024 12:27 AM CDT Emergency [facility] Emergency Department [address] [place] [address] Huang Hwang MD PhD Dental abscess (Primary Dx) Discharge Disposition: Discharge to home or self care 09/26/2024 9:05 AM CDT - 09/26/2024 10:59 AM CDT Emergency [facility] Emergency Department [address] [place] [address] Saba Montano MD Pain due to dental [...] on file Legal Sex Female 4:35 PM [employer] Gender Identity Not on file Sexual Orientation [...] MD LAB BLOOD ORDERABLES Final Resul t [facility] [address] [facility] [place] [address] * (ABNORMAL) CBC without differential (11/15/2024 10:55 PM CDT) WBC 6.85 3.80 - 9.90 K/cumm Hgb 10.8(L) 11.9 - 15.5 g/dL [facility] Hct 33.0(L) 35.6 - 45.5 % [facility] Plt 383 150 - 400 K/cumm [facility] MPV 8.9(L) 9.1 - 12.[address] [facility] RBC 3.20(L) 3.90 - 5.20 M/cumm [facility] MCV 103.1(H) 81.3 - 96.[address] [facility] MCH 33.8(H) 27.1 - 33.[address] [facility] MCHC 32.7 32.3 - 35.7 g/dL [facility] RDW CV 12.8 11.1 - 14.9 % [facility] RDW SD 48.1 35.7 - 48.[address] [facility] NRBC abs 0.00 0.00 - 0.01 K/cumm [facility] Blood 11/15/2024 10:5 5 PM CDT 11/15/2024 11:10 PM CDT Victor M Barry MD LAB BLOOD ORDERABLES Final Resul t [facility] [address] [facility] Department [place] [address] * Basic metabolic panel (11/15/2024 10:55 PM CDT) Sodium 140 135 - 145 mmol/L Potassium, pl 3.5 3.3 - 4.9 mmol/L [facility] Chloride 105 97 - 110 mmol/L [facility] CO2 25 22 - 32 mmol/L [facility] Anion gap 10 2 - 15 mmol/L [facility] BUN 9 6 - 25 mg/dL [facility] Creatinine 0.67 0.60 - 1.10 mg/dL [facility] Glucose 99 70 - 199 mg/dL [facility] Comment: Interpretive Data Fasting glucose >/= [...] Calcium 9.8 8.5 - 10.3 mg/dL [facility] Blood 11/15/2024 10:5 5 PM CDT 11/15/2024 11:10 PM CDT us Victor M Barry MD LAB BLOOD ORDERABLES Final Resul t [facility] [address] [facility] Department [place] [address] * XR Hand Right 3 or More [...] Shantell Londono M.D. FT: FT Report ID: [id number] Reading Location: [id number] Procedure Note Shantell Valle MD - 09/26/2024 [...] Shantell Londono M.D. FT: FT Report ID: [id number] Reading Location: [place] [address] Saba Montano MD IMG XR PROCEDURES F inal Result from Last 3 Months Insurance [employer] [employer] Care Teams Business Applications Analyst Relationship Specialty Start Date End Date Jose Alfredo Burgos MD [address] [facility] [address] [place] [address] PCP - General Family Medicine 10/14/23
--- NOTE | 2024-12-08 13:02 | PC.NURSE ---
This RN presented in the patient's room for assessment and medications. Patient states, I dont want any of those medications, I am leaving to go to another hosptial. I know what Toradol and Tylenol are and they dont work for me. patient explained that the provider wanted to start with these medications and that he was not giving narcotic medications at this time. Patient states I am leaving, those medications are not going to work for me. patient walked out of ED without difficulty and in no distress. EDP aware of patient leaving ED.
== END 2024-12-08 13:12 | disposition home or self-care (01) ==
PROVIDERS: Emergency Provider Emergency Medicine; PCP Family Medicine
DX: K08.89 Other specified disorders of teeth and supporting structures (principal); Z76.5 Malingerer [conscious simulation]; F17.200 Nicotine dependence, unspecified, uncomplicated
CPT/HCPCS: 99281